=== PATIENT | male | born 1945 | race Caucasian/White ===

== ENCOUNTER → 2023-09-09 13:41 | Outpatient (REF) | payer OTHER, SELFPAY | LOC: RAD 13:41 | PROVIDERS: ATTENDING PHYSICIAN Nurse Practitioner Adult Health | DX: R07.81 Pleurodynia (principal) | CPT/HCPCS: 71046 ==

== ENCOUNTER → 2023-09-30 08:29 | Outpatient (REF) | payer OTHER, SELFPAY ==
[2023-09-30 11:35] LABS: TSH Reflex To Free T4 7.13 uIU/ml (0.47-4.68)
[2023-09-30 11:41] LABS: HDL Cholesterol 65 mg/dl; LDL Cholesterol, Calculated 81 mg/dl; Total Cholesterol 161 mg/dl (50-199); Triglyceride 77 mg/dl (10-149); Very Low Density Lipoprotein 15 mg/dl (0-30)
[2023-09-30 12:05] LABS: Free T4 0.76 ng/dl (0.78-2.19)
== END ==
LOC: RAD 08:29
PROVIDERS: ATTENDING PHYSICIAN Internal Medicine
DX: E78.2 Mixed hyperlipidemia (principal); I25.84 Coronary atherosclerosis due to calcified coronary lesion; M25.522 Pain in left elbow
CPT/HCPCS: 36415; 73080; 80061; 84439; 84443

== ENCOUNTER 2024-02-28 02:22 | Emergency (ER) | payer OTHER, SELFPAY ==
[2024-02-28 02:22] VITALS: BMI 19.9
[2024-02-28 02:30] VITALS: BP 154/81
[2024-02-28 04:23] VITALS: BP 157/69
[2024-02-28 05:01] VITALS: BP 164/67
[2024-02-28 05:37] LABS: % Basophils 1.6 % (0-2); % Eosinophils 10.6 % (0-6); % Immature Granulocytes 0.3 % (0-0.5); % Lymphocytes 12.8 % (20.5-51.1); % Monocytes 7.9 % (1.7-9.3); % Neutrophils 66.8 % (42.2-75.2); Absolute Basophils 0.1 10^3/uL (0-0.2); Absolute Eosinophils 0.8 10^3/uL (0-0.7); Absolute Monocytes 0.6 10^3/uL (0.1-0.6); Absolute Neutrophils 5.2 10^3/uL (1.4-6.5); Hemoglobin 14.3 g/dL (13.0-18.0); Mean Corpuscular Volume 88.2 fL (80.0-94.0); Mean Platelet Volume 10.1 fL (7.4-10.4); Nucleated Red Blood Cells % 0 % (-); Platelet Count 590 10^3/uL (130-400); Red Blood Cell Count 4.76 10^6/uL (4.70-6.10); Red Cell Dist. Width 13.6 % (11.5-14.5); White Blood Cell Count 7.7 10^3/uL (4.8-10.8)
[2024-02-28 06:00] VITALS: BP 151/70
[2024-02-28 06:10] LABS: Troponin I < 0.012 ng/ml
--- NOTE | 2024-02-28 06:14 | ED.GENMED ---
History of Present Illness
General
Chief Complaint: Heart Rate Problem
Source: patient
Exam Limitations: none
Time Seen by Provider: 02/28/24 05:39
Nursing documentation reviewed up to this point in time: agreed with
History of Present Illness
History of Present Illness:
This is a 78-year-old gentleman with history of PAF, chronically maintained on Pradaxa as well as Tikosyn and diltiazem.
He complains of palpitations, intermittent since yesterday evening. He was concern for possible A-fib. He has had no chest pain, no shortness of breath, no dizziness nor lightheadedness.
No recent change in medications other than temporarily discontinuing atorvastatin 2 weeks ago due to some chronic posterior thigh achy pain. Posterior thigh pain has resolved with discontinuing atorvastatin.
Past History
Past History
ED Past Medical History: Arrthythmia (Atrial fibrillation), Asthma, Cancer (Lung cancer 2005), COPD, GERD (Hiatal hernia), Other (Irritable bowel disease, prostatic hypertrophy, glaucoma) and Other (Bronchiectasis)
ED Past Surgical History: Other (Left lung lobectomy August 2005, hemorrhoidectomy, inguinal hernia repair)
Social History
Tobacco: Former smoker (Quit with lung cancer diagnosis 2005)
Alcohol: None
Drug: None
Personal:
Living: alone
Employment: Employed (Musician)
Family History
Family History: Hypertension
Phy Exam
Physical Exam
Physical Exam:
GENERAL: 78-year-old gentleman appears his stated age, bright and alert, pleasant, appears in no acute distress. Easily communicative.
EYE: anicteric
NECK: Supple, nontender, no meningismus, no significant adenopathy.
ENT: oral mucosa is moist. No rhinorrhea.
CARDIAC: Regular rate and rhythm at a rate of 60. no murmur.
LUNGS: Clear breath sounds bilaterally, no acute respiratory distress, no wheezes/rales/rhonchi
ABDOMEN: Soft, nondistended, without focal tenderness
NEUROLOGICAL: Alert and oriented x3, no focal neuro deficits. Gait is lam and steady.
SKIN: Warm and dry, normal color, skin intact. No rash.
MUSCULOSKELETAL: No C/C/E. peripheral pulses are full and equal b/l. No palpable tenderness.
PSYCH: Normal and appropriate interaction.
Course
Orders/Labs/Results
Orders:
Orders
02/28/24 02:36
Electrocardiogram (*1) Urgent
Reason for Study: Other
Other Reason for Exam: Respiratory Distress
Cardiac Monitoring- Treatment ONCE
EKG- Treatment ONCE
IV Insert/Care/Rem.- Treatment PRN
O2 Therapy [RESP] Urgent
Titrate/Wean O2 to maintain O2 sat greater than (%): 93
Special Instructions: TO MAINTAIN CONTINUOUS O2 SATS >/= 93%
Pulse Ox/cont/shift [RESP] Urgent
Quantity: 1
Special Instructions: continuous pulse ox
02/28/24 04:08
ECG [Electrocardiogram (*1)] Urgent
Reason for Study: Palpitations
Cardiology Consult: Unknown
02/28/24 04:09
EKG- Treatment ONCE
02/28/24 05:26
Complete Blood Count/With Diff Urgent
Comprehensive Metabolic Panel Urgent
TSH Reflex To Free T4 Urgent
Comment: ADD ON
Troponin I Urgent
02/28/24 06:30
Add On- LAB Urgent
Tests Added?: TSH with reflex to free T-4
Abnormal Lab Results
02/28/24
05:26
Plt Count 590 H 10^3/uL
(130-400)
Absolute Lymphs (auto) 1.0 L 10^3/uL
(1.2-3.4)
Absolute Eos (auto) 0.8 H 10^3/uL
(0-0.7)
Lymphocytes % 12.8 L %
(20.5-51.1)
Eosinophils % 10.6 H %
(0-6)
Potassium 5.4 H mmol/L
(3.5-5.1)
02/28/24 05:26
02/28/24 05:26
Vital Signs
Initial and Last Documented VS:
Initial Vital Signs
Temp Pulse Resp BP Pulse Ox
98.1 F 67 20 154/81 98
02/28/24 02:30 02/28/24 02:30 02/28/24 02:30 02/28/24 02:30 02/28/24 02:30
Last Documented Vital Signs
Temp Pulse Resp BP Pulse Ox
98.1 F 60 20 151/70 100
02/28/24 02:30 02/28/24 06:15 02/28/24 05:45 02/28/24 06:00 02/28/24 04:23
MDM/Problems Addressed
Differential Diagnosis Includes:
Concern for PAF, PACs, PVCs. Concern for electrolyte abnormality, dehydration.
Initial EKG shows normal sinus rhythm, no ectopy.
media monitor currently shows normal sinus rhythm and I have not visualized any ectopy but will continue to observe.
Labs are pending.
MDM/Problems Addressed:
Potential for arrhythmia� history of PAF
Chronic conditions affecting care: Arrhythmia
*Pulse Oximetry
Patient hypoxic: no
*EKG
Interpreted by ED Provider?: Yes
Interpretation: normal
Comparison EKG: no changes (Unchanged from previous May 2023)
Rate: normal
Rhythm: sinus
Cartwright: normal axis
Interval: normal interval
QRS Pattern: normal QRS, poor R-wave progression and left vent hypertrophy
Ischemia: no ischemia
*Director Of Laboratory Operations Interpretation
Rate: normal
Interpretation: normal
Rhythm: sinus
*Critical Care Note
Total Time (30-74mins, 75-104mins- exclusive of procedures): Not Applicable
Update Note
Update Note:
02/28/2024 0628 AM
Monitor continues to show normal sinus rhythm, sinus bradycardia without ectopy nor A-fib.
Labs show mildly elevated platelet count, similar elevations previously.
Minimally elevated potassium with normal BUN and creatinine. Sporadic elevated potassium level noted previously.
Of note patient noted to have mildly elevated TSH of 7.13 and slightly low free T4 of 0.76 September of this year. He was prescribed low-dose levothyroxine which she admits to not starting as yet.
Progression of hypothyroidism could certainly be cause for his intermittent palpitations however we have not seen arrhythmia during ED monitoring.
Will add thyroid function to blood in the lab.
Patient has a follow-up appointment with Dr. Green scheduled for tomorrow, February 28.
Recommend he discuss his palpitations with Dr. Green as well as discuss hypothyroidism as labs should be resulted by tomorrow. If he remains hypothyroid would definitely recommend initiation of low-dose levothyroxine.
We also discussed resuming atorvastatin perhaps every other day as well as adding co-Q10 which sometimes can help with muscle aches.
ED Attending Note
-
Portions of this chart may have been created with voice recognition software.� Occasional wrong word or��sound alike� substitutions may have occurred due to the inherent limitations of voice recognition software.
Discharge Plan
Departure
Patient Disposition: Home (Routine Discharge)
Date of Disposition: 02/28/24
Time of Disposition: 06:30
Patient with high blood pressure during this ER visit?: No
Condition: Good
Discharge Problem:
Heart palpitations
Instructions: Palpitations (DC)
Prescriptions:
No Action
montelukast 10 MG tablet
10 mg PO DAILY
levalbuterol tartrate 1 PUFF HFA aerosol inhaler
2 puff inhalation PRN PRN (Reason: trouble breathing)
tamsulosin 0.4 MG capsule
0.4 mg PO DAILY
dorzolamide 1 DROP drops
1 drp ophthalmic (eye) TID
Patient Comments:
both eyes
budesonide-formoterol [Symbicort] 1 PUFF HFA aerosol inhaler
1 puff inhalation BID
diltiazem HCl 120 MG capsule,extended release 24hr
120 mg PO DAILY
ascorbic acid (vitamin C) [Vitamin C] 1,000 mg Tablet
500 mg PO DAILY
nitroglycerin 0.4 mg Tablet, Sublingual
0.4 mg SUBLINGUAL Q5-15M PRN (Reason: chest pain)
dutasteride 0.5 mg Capsule
0.5 mg PO DAILY
Linzess 290 mcg Capsule
290 mcg PO DAILY PRN (Reason: constipation)
atorvastatin 40 mg Tablet
40 mg PO QPM Qty: 90 5RF
dabigatran etexilate [Pradaxa] 150 mg Capsule
150 mg PO BID Qty: 180 5RF
dofetilide 125 mcg Capsule
125 mcg PO Q12 Qty: 180 5RF
Vyzulta 0.024 % Drops
1 drp OPHTHALMIC (EYE) HS
Rx Instructions:
left eye
Referrals:
Josr Albarran MD [Family Provider] -
Torsten Green MD [Active] - Keep scheduled appt
Interventions
Interventions:
*Risk Screen - Suicide Last Done: 02/28/24 02:30
*General Assessment Last Done: 02/28/24 02:30
*Neglect/Abuse Screening Last Done: 02/28/24 02:30
ED- Fall Risk Assessment Last Done: 02/28/24 02:30
*ED COVID-19 Vaccine History Last Done: 02/28/24 02:30
*Nursing Disposition Last Done: 02/28/24 06:43
ED- Cardiac Assessment Last Done: 02/28/24 04:18
ED- Pulmonary Assessment Last Done: 02/28/24 04:18
Discharge Date and Time
Discharge Date/Time: 02/28/24 06:43
Print Language: BANGLADESHI
[2024-02-28 06:20] LABS: ALT (SGPT) 36 U/L (0-50); AST (SGOT) 35 U/L (17-59); Albumin 4.2 g/dl (3.5-5.0); Alkaline Phosphatase 80 U/L (38-126); Blood Urea Nitrogen 20 mg/dl (9-20); Calcium 9.6 mg/dl (8.4-10.2); Carbon Dioxide 25 mmol/L (22-30); Chloride 105 mmol/L (98-107); Estimated Creatinine Clearance 58 ml/min; Glucose 87 mg/dl (70-99); Potassium 5.4 mmol/L (3.5-5.1); Sodium 141 mmol/L (135-145); Total Bilirubin 0.9 mg/dl (0.2-1.3); Total Protein 6.7 g/dl (6.3-8.2); eGFR > 60.00
[2024-02-28 07:20] LABS: TSH Reflex To Free T4 9.02 uIU/ml (0.47-4.68)
[2024-02-28 07:50] LABS: Free T4 0.78 ng/dl (0.78-2.19)
== END 2024-02-28 06:43 | disposition home or self-care (01) ==
LOC: EMR 02:22
PROVIDERS: EMERGENCY PHYSICIAN Emergency Medicine; FAMILY PHYSICIAN Internal Medicine
DX: R00.2 Palpitations (principal); I48.0 Paroxysmal atrial fibrillation; E03.9 Hypothyroidism, unspecified; Z87.891 Personal history of nicotine dependence; Z79.01 Long term (current) use of anticoagulants
CPT/HCPCS: 99284; 80053; 84439; 84443; 84484; 85025; 93005

== ENCOUNTER 2024-03-03 04:32 | Emergency (ER) | payer OTHER, SELFPAY ==
[2024-03-03 04:34] VITALS: BMI 19.1
[2024-03-03 04:35] VITALS: BP 173/73
--- NOTE | 2024-03-03 04:50 | ED.GENMED ---
History of Present Illness
<TORSTEN Dempsey - Last Filed: 03/03/24 06:36>
General
Chief Complaint: Rectal Bleeding
Source: patient
Time Seen by Provider: 03/03/24 04:44
History of Present Illness
History of Present Illness:
This is a pleasant 78-year-old male with a past medical history of A-fib, hypertension, hyperlipidemia, hemorrhoids, Rectal stenosis, hypothyroid, glaucoma, lung cancer, presents to the emergency department for painless rectal bleeding. Patient
states the first episode of bleeding occurred yesterday morning around 10 AM when he first woke up. He noted after a straining bowel movement that the tissue was 'soaked 'but stated that he is on no blood in the toilet or in the stool. Patient
stated the second episode of rectal bleeding happened this morning around 3 AM where the tissue paper was 'drenched ' Which prompted him to call EMS. He states that he wants to get his left glaucoma surgery performed before the end of the year and
that he believes fixing his rectal stenosis first will remove any healthcare barriers to his glaucoma surgery. Yesterday he talked with his colorectal surgeon, Dr. Edward Winkler. Patient states he intends to make an appointment for anal
stenosis surgery/hemorrhoid surgery. Patient incidentally admits to abdominal tenderness but states that that is his baseline. He denies chest pain, shortness of breath, headache, dizziness, nausea, vomiting.
Patient had a hemorrhoidectomy when he was 17 years old and has since had chronic constipation and chronic anal stenosis.
Past History
<TORSTEN Dempsey - Last Filed: 03/03/24 06:36>
Past History
ED Past Medical History: Arrthythmia (Atrial fibrillation), Asthma, Cancer (Lung cancer 2005), COPD, GERD (Hiatal hernia), Other (Irritable bowel disease, prostatic hypertrophy, glaucoma) and Other (Bronchiectasis)
ED Past Surgical History: Other (Left lung lobectomy August 2005, hemorrhoidectomy, inguinal hernia repair)
Social History
Tobacco: Former smoker (Quit with lung cancer diagnosis 2005)
Alcohol: None
Drug: None
Personal:
Living: alone
Employment: Employed (Musician)
Family History
Family History: Hypertension
Review of Systems
<TORSTEN Dempsey - Last Filed: 03/03/24 06:36>
Review of Systems
Allergies reviewed?: Yes
Phy Exam
<TORSTEN Dempsey - Last Filed: 03/03/24 06:36>
General Physical Exam
General Presentation: well appearing
General age: appears stated age
General Skin: warm
General Habitus: normal
General Mental: alert
General Hydration: appears well hydrated
Eye Exam
Eye Exam: PERRL
Cardiovascular Exam
Cardiovascular Exam: regular rate/rhythm, no edema, no gallop, no murmur and normal peripheral pulses
Pulmonary Exam
Pulmonary Exam: lungs clear, no respiratory distress, no rales, no crackles, no rhonchi, no wheezing and no cough
Gastrointestinal Exam
Gastrointestinal Exam: normal bowel sounds, non tender, soft and non distended
Rectal Exam: tender, tight spinchter tone and other (Anterior midline 1 cm anal fissure, )
Stool: few red streaks
Guaiac Status: grossly bloody - positive
Neurological Exam
Neurological Exam: alert and oriented x3
Musculoskeletal Exam
Musculoskeletal Exam: full ROM
Skin Exam
Skin Exam: normal color and warm/dry
Course
<TORSTEN Dempsey - Last Filed: 03/03/24 06:36>
Orders/Labs/Results
Orders:
Orders
03/03/24 04:54
Complete Blood Count/With Diff Urgent
Comprehensive Metabolic Panel Urgent
Abnormal Lab Results
03/03/24
04:54
Plt Count 616 H 10^3/uL
(130-400)
Absolute Neuts (auto) 6.8 H 10^3/uL
(1.4-6.5)
Absolute Lymphs (auto) 1.1 L 10^3/uL
(1.2-3.4)
Absolute Monos (auto) 0.7 H 10^3/uL
(0.1-0.6)
Absolute Eos (auto) 0.8 H 10^3/uL
(0-0.7)
Lymphocytes % 11.7 L %
(20.5-51.1)
Eosinophils % 8.6 H %
(0-6)
Potassium 5.3 H mmol/L
(3.5-5.1)
Carbon Dioxide 21 L mmol/L
(22-30)
BUN 24 H mg/dl
(9-20)
03/03/24 04:54
03/03/24 04:54
Vital Signs
Initial and Last Documented VS:
Initial Vital Signs
BP
173/73
03/03/24 04:35
Last Documented Vital Signs
Pulse Resp BP Pulse Ox
69 12 145/59 100
03/03/24 06:15 03/03/24 06:15 03/03/24 06:15 03/03/24 05:45
Harpreetlt;Shruti Payne, DO - Last Filed: 03/03/24 06:19>
Orders/Labs/Results
Orders:
Orders
03/03/24 04:54
Complete Blood Count/With Diff Urgent
Comprehensive Metabolic Panel Urgent
Abnormal Lab Results
03/03/24
04:54
Plt Count 616 H 10^3/uL
(130-400)
Absolute Neuts (auto) 6.8 H 10^3/uL
(1.4-6.5)
Absolute Lymphs (auto) 1.1 L 10^3/uL
(1.2-3.4)
Absolute Monos (auto) 0.7 H 10^3/uL
(0.1-0.6)
Absolute Eos (auto) 0.8 H 10^3/uL
(0-0.7)
Lymphocytes % 11.7 L %
(20.5-51.1)
Eosinophils % 8.6 H %
(0-6)
Potassium 5.3 H mmol/L
(3.5-5.1)
Carbon Dioxide 21 L mmol/L
(22-30)
BUN 24 H mg/dl
(9-20)
03/03/24 04:54
03/03/24 04:54
Vital Signs
Initial and Last Documented VS:
Initial Vital Signs
BP
173/73
03/03/24 04:35
Last Documented Vital Signs
Pulse Resp BP Pulse Ox
69 12 145/59 100
03/03/24 06:15 03/03/24 06:15 03/03/24 06:15 03/03/24 05:45
<TORSTEN Dempsey - Last Filed: 03/03/24 06:36>
MDM/Problems Addressed
Differential Diagnosis Includes:
Anal fissure, internal hemorrhoid, external hemorrhoid, gastrointestinal bleed,
<TORSTEN Dempsey - Last Filed: 03/03/24 06:36>
*Critical Care Note
Total Time (30-74mins, 75-104mins- exclusive of procedures): Not Applicable
ED Attending Note
<TORSTEN Dempsey - Last Filed: 03/03/24 06:36>
-
Portions of this chart may have been created with voice recognition software.� Occasional wrong word or��sound alike� substitutions may have occurred due to the inherent limitations of voice recognition software.
<Shruti Payne, DO - Last Filed: 03/03/24 06:19>
ED Attending Note
Patient seen and examined by attending physician: Yes
I performed the substantive portion of visit, reviewed & personally made and approve the management plan that is documented in note by myself or DEMOND.: Yes
ED Attending Note:
This is a 78-year-old gentleman with history of PAF, chronically maintained on Pradaxa as well as Tikosyn and diltiazem. He has remote history of lung cancer, COPD, GERD, irritable bowel disease, glaucoma as well as history of hemorrhoids
undergoing hemorrhoidectomy at age 17 and since then has been suffering with anal stenosis for which she follows with colorectal surgery, Dr. Leon.
At last office visit with Dr. Leon in December, plan was for exam under sedation with dilation, sphincterotomy and advancement flap. Thus far this has not been scheduled but he is strongly considering this procedure.
He admits that he chronically strains to pass a bowel movement and has been noncompliant with fiber supplements.
Yesterday morning after passing a firm bowel movement he was concerned with bright red blood on toilet tissue. He denies blood streaked around the stool, denies blood in the toilet bowl. He denies abdominal pain, no cramping, no dizziness nor
lightheadedness. He did touch base with Dr. Leon yesterday with plans for follow-up appointment in the near future.
Again early this morning he passed a bowel movement with no blood in the toilet nor blood streaking around the stool but was concerned with additional bright red blood only noted on toilet tissue. He denies anal pain nor rectal pain with defecation.
He was seen by myself 4 days ago with complaints of palpitations which has been an ongoing issue. ED visit unremarkable with EKG showing normal sinus rhythm, cardiac care nurse showing normal sinus rhythm.
Labs were all unremarkable save for minimally elevated TSH which has trended up slightly from August with low normal free T4. Patient was prescribed low-dose Synthroid in August but admits that he has not initiated this as yet.
GENERAL: 78-year-old gentleman appears his stated age, awake and alert, pleasant, easily communicative, mildly anxious.
EYE: anicteric
NECK: Supple, nontender, no meningismus, no significant adenopathy.
ENT: oral mucosa is moist. No rhinorrhea.
CARDIAC: Regular rate and rhythm. no murmur.
LUNGS: Clear breath sounds bilaterally, no acute respiratory distress, no wheezes/rales/rhonchi
ABDOMEN: Soft, nondistended, without focal tenderness, no r/g, no cvat. normoactive BS. Rectal exam by PA student under my direct supervision. There is a minute superficial anal fissure anterior aspect. No active bleeding. Scant mucoid blood
within rectal vault that is heme positive.
NEUROLOGICAL: Alert and oriented x3, no focal neuro deficits. Gait is lam and steady.
SKIN: Warm and dry, normal color, skin intact. No rash.
MUSCULOSKELETAL: No C/C/E. peripheral pulses are full and equal b/l. No palpable tenderness.
PSYCH: Mildly anxious. Easily communicative.
It is reassuring that patient only notices blood with wiping. There is been no episodes of bloody bowel movements. I suspect focal bleeding from either small anterior rectal fissure versus internal hemorrhoids.
He remains hemodynamically stable. Monitor continues to show normal sinus rhythm without ectopy nor episodes of A-fib.
Abdomen is soft and nontender.
Will check labs, reassess stability from 4 days ago.
Will continue to observe and if no episodes of hematochezia we will plan to initiate Anusol suppositories for potential internal hemorrhoid and discharged home with recommendations for follow-up with Dr. Leon.
Patient has been encouraged to initiate low-dose Synthroid for mild hypothyroidism.
He has also been encouraged to resume daily fiber supplement and to continue this on a chronic/daily basis.
03/03/2024 0618 AM
Patient continues to appear comfortable, denies abdominal pain and has had no rectal bleeding since arrival to the ED.
Labs show normal H&H. There is note of continued uptrend in platelet count and he has history of thrombocytosis, follows with Dr. Padilla. Due to uptrend in platelets more recently recommend he touch base with Dr. Padilla.
Rectal bleeding only noted on toilet tissue is likely focal, rectal/anal issue and I suspect related to small superficial anal fissure versus internal hemorrhoids.
Will initiate a course of Anusol suppositories with recommendations for prompt follow-up with Dr. Leon.
Recommend he resume fiber supplement/Benefiber and continue this on a daily basis.
Stay well-hydrated on a daily basis.
Return precautions discussed.
Discharge Plan
Departure
Patient Disposition: Home (Routine Discharge)
Date of Disposition: 03/03/24
Time of Disposition: 06:13
Patient with high blood pressure during this ER visit?: No
Condition: Good
Discharge Problem:
Rectal bleeding, Acute anterior anal fissure, chronic anal stenosis, chronic thrombocytosis
Instructions: Hemorrhoids (DC), Anal Fissure (DC)
Prescriptions:
New
hydrocortisone acetate [Anusol-HC] 25 mg suppository
25 mg SD BID Qty: 24 0RF
No Action
montelukast 10 MG tablet
10 mg PO DAILY
levalbuterol tartrate 1 PUFF HFA aerosol inhaler
2 puff inhalation PRN PRN (Reason: trouble breathing)
tamsulosin 0.4 MG capsule
0.4 mg PO DAILY
dorzolamide 1 DROP drops
1 drp ophthalmic (eye) TID
Patient Comments:
both eyes
budesonide-formoterol [Symbicort] 1 PUFF HFA aerosol inhaler
1 puff inhalation BID
diltiazem HCl 120 MG capsule,extended release 24hr
120 mg PO DAILY
ascorbic acid (vitamin C) [Vitamin C] 1,000 mg Tablet
500 mg PO DAILY
nitroglycerin 0.4 mg Tablet, Sublingual
0.4 mg SUBLINGUAL Q5-15M PRN (Reason: chest pain)
dutasteride 0.5 mg Capsule
0.5 mg PO DAILY
Linzess 290 mcg Capsule
290 mcg PO DAILY PRN (Reason: constipation)
atorvastatin 40 mg Tablet
40 mg PO QPM Qty: 90 5RF
dabigatran etexilate [Pradaxa] 150 mg Capsule
150 mg PO BID Qty: 180 5RF
dofetilide 125 mcg Capsule
125 mcg PO Q12 Qty: 180 5RF
Vyzulta 0.024 % Drops
1 drp OPHTHALMIC (EYE) HS
Rx Instructions:
left eye
Referrals:
Mohsen Leon MD [Active] - Call in 1-3 days for appt
Josr Albarran MD [Family Provider] -
Jose Carlos Padilla MD [Active] - Call in 1-3 days for appt
Activity Restrictions/Additional Instructions:
Start that low-dose levothyroxine for hypothyroidism.
Stay well-hydrated on a daily basis.
I want you to resume fiber supplement such as Benefiber and continue this on a daily basis.
You have been prescribed Anusol suppositories to insert rectally twice daily over the next 12 days.
Touch base with Dr. Leon for follow-up.
Your platelet count (thrombocytosis) has been trending up a bit lately thus I want you to follow-up with Dr. Padilla for further evaluation.
Interventions
Interventions:
*Risk Screen - Suicide Last Done: 03/03/24 04:34
*General Assessment Last Done: 03/03/24 04:34
*Neglect/Abuse Screening Last Done: 03/03/24 04:34
ED- Fall Risk Assessment Last Done: 03/03/24 06:24
*ED COVID-19 Vaccine History Last Done: 03/03/24 04:34
*Nursing Disposition Last Done: 03/03/24 06:24
MF-Dsnvly-Ingiqdfojt Assessment Last Done: 03/03/24 04:34
ED- Cardiac Assessment Last Done: 03/03/24 04:34
ED- Pulmonary Assessment Last Done: 03/03/24 04:34
Discharge Date and Time
Discharge Date/Time: 03/03/24 06:25
Print Language: GREEK
[2024-03-03 05:21] LABS: % Basophils 1.1 % (0-2); % Eosinophils 8.6 % (0-6); % Immature Granulocytes 0.3 % (0-0.5); % Lymphocytes 11.7 % (20.5-51.1); % Monocytes 7.7 % (1.7-9.3); % Neutrophils 70.6 % (42.2-75.2); Absolute Basophils 0.1 10^3/uL (0-0.2); Absolute Eosinophils 0.8 10^3/uL (0-0.7); Absolute Lymphocytes 1.1 10^3/uL (1.2-3.4); Absolute Monocytes 0.7 10^3/uL (0.1-0.6); Absolute Neutrophils 6.8 10^3/uL (1.4-6.5); Hematocrit 43.2 % (39.0-52.0); Hemoglobin 14.7 g/dL (13.0-18.0); Mean Corpuscular Hgb 30.1 pg (27.0-31.0); Mean Corpuscular Volume 88.5 fL (80.0-94.0); Mean Platelet Volume 10.4 fL (7.4-10.4); Nucleated Red Blood Cells % 0 % (-); Platelet Count 616 10^3/uL (130-400); Red Blood Cell Count 4.88 10^6/uL (4.70-6.10); Red Cell Dist. Width 13.7 % (11.5-14.5); White Blood Cell Count 9.6 10^3/uL (4.8-10.8)
[2024-03-03 05:29] VITALS: BP 138/70
[2024-03-03 05:31] LABS: ALT (SGPT) 36 U/L (0-50); AST (SGOT) 37 U/L (17-59); Albumin 4.7 g/dl (3.5-5.0); Alkaline Phosphatase 92 U/L (38-126); Blood Urea Nitrogen 24 mg/dl (9-20); Calcium 9.9 mg/dl (8.4-10.2); Carbon Dioxide 21 mmol/L (22-30); Chloride 102 mmol/L (98-107); Estimated Creatinine Clearance 45 ml/min; Glucose 90 mg/dl (70-99); Potassium 5.3 mmol/L (3.5-5.1); Sodium 139 mmol/L (135-145); Total Bilirubin 0.7 mg/dl (0.2-1.3); Total Protein 7.4 g/dl (6.3-8.2); eGFR > 60.00
[2024-03-03 06:15] VITALS: BP 145/59
== END 2024-03-03 06:25 | disposition home or self-care (01) ==
LOC: EMR 04:32
PROVIDERS: EMERGENCY PHYSICIAN Emergency Medicine; FAMILY PHYSICIAN Internal Medicine
DX: K62.5 Hemorrhage of anus and rectum (principal); K60.2 Anal fissure, unspecified; K62.4 Stenosis of anus and rectum; D75.839 Thrombocytosis, unspecified; I48.91 Unspecified atrial fibrillation; I10 Essential (primary) hypertension; E78.00 Pure hypercholesterolemia, unspecified; E03.9 Hypothyroidism, unspecified; H40.9 Unspecified glaucoma; K21.9 Gastro-esophageal reflux disease without esophagitis; K58.1 Irritable bowel syndrome with constipation; N40.0 Benign prostatic hyperplasia without lower urinary tract symptoms; Z82.49 Family history of ischemic heart disease and other diseases of the circulatory system; Z85.118 Personal history of other malignant neoplasm of bronchus and lung; Z87.19 Personal history of other diseases of the digestive system; Z87.891 Personal history of nicotine dependence
CPT/HCPCS: 99283; 80053; 85025

== ENCOUNTER 2024-03-05 16:44 | Emergency (ER) | payer OTHER, SELFPAY ==
[2024-03-05 16:49] VITALS: BP 147/69
--- NOTE | 2024-03-05 17:27 | ED.GENMED ---
History of Present Illness
General
Chief Complaint: Chest Pain
Source: patient
Time Seen by Provider: 03/05/24 17:25
History of Present Illness
History of Present Illness:
This patient is a 78-year-old male presents to the emergency department with a history of recent rectal bleeding. He noticed it on March 02, described as 'red' also described as 'dark', noted on the toilet paper. Patient is on Pradaxa and he
discontinued his Pradaxa the next day, March 03. He has not taken a dose since then except last night when he got concerned that being off his Pradaxa would be problematic. He denies any further rectal bleeding today. However, this morning, he
noted that his left arm felt a little funny described as 'like it swollen' lasting a few seconds at a time and then going away completely before returning every few minutes or so. There are no provoking or relieving factors to this discomfort. He
denies radiation, diaphoresis, back pain, neck pain, headache, new dizziness. Patient has complaints of chronic 'pressure' in his chest that he attributes to COPD as well as a thoracotomy in the past. He noted that chest pressure earlier today but
no longer. He also noted dyspnea lasting 5 minutes earlier today, now fully resolved. He denies leg swelling, fever, chills, cough, sore throat, rhinorrhea, or other complaints. He denies bleeding elsewhere. He states 'I am here today because I
want to see if I should restart my Pradaxa'
Past History
Past History
ED Past Medical History: Arrthythmia (Atrial fibrillation), Asthma, Cancer (Lung cancer 2005), COPD, GERD (Hiatal hernia), Other (Irritable bowel disease, prostatic hypertrophy, glaucoma) and Other (Bronchiectasis)
ED Past Surgical History: Other (Left lung lobectomy August 2005, hemorrhoidectomy, inguinal hernia repair)
Social History
Tobacco: Former smoker (Quit with lung cancer diagnosis 2005)
Alcohol: None
Drug: None
Personal:
Living: alone
Employment: Employed (Musician)
Family History
Family History: Hypertension
Phy Exam
Physical Exam
Physical Exam:
GENERAL: Alert , in no apparent distress
EYE: pupils equal and reactive
NECK: Supple, no significant adenopathy.
ENT: o/p clr, mmm.
CARDIAC: Regular rate and rhythm .
LUNGS: Clear breath sounds bilaterally, no acute respiratory distress, no wheezes/rales/rhonchi
ABDOMEN: Soft, without focal tenderness, no r/g, no cvat
NEUROLOGICAL: Alert and oriented, no focal neuro deficits
SKIN: Warm and dry, skin intact.
MUSCULOSKELETAL: No edema, well perfused.
PSYCH: Normal and appropriate interaction.
Scores
Heart Score for Chest Pain Patients
STEMI patient?: Not applicable
Course
Orders/Labs/Results
Orders:
Orders
03/05/24 16:45
ECG [Electrocardiogram (*1)] Urgent
Reason for Study: Chest Pain
Other Reason for Exam: L arm pain
EKG- Treatment ONCE
03/05/24 17:26
Cardiac Monitoring- Treatment ONCE
03/05/24 17:28
Complete Blood Count/No Diff Urgent
Comprehensive Metabolic Panel Urgent
Troponin I Urgent
03/05/24 20:48
Troponin I Urgent
Abnormal Lab Results
03/05/24
17:28
RBC 4.03 L 10^6/uL
(4.70-6.10)
Hgb 12.2 L g/dL
(13.0-18.0)
Hct 35.1 L %
(39.0-52.0)
Plt Count 534 H 10^3/uL
(130-400)
Glucose 140 H mg/dl
(70-99)
Total Protein 6.1 L g/dl
(6.3-8.2)
03/05/24 17:28
03/05/24 17:28
Vital Signs
Initial and Last Documented VS:
Initial Vital Signs
Temp Pulse Resp BP Pulse Ox
98.0 F 66 18 147/69 99
03/05/24 16:49 03/05/24 16:49 03/05/24 16:49 03/05/24 16:49 03/05/24 16:49
Last Documented Vital Signs
Temp Pulse Resp BP Pulse Ox
98.0 F 64 18 165/68 98
03/05/24 16:49 03/05/24 21:45 03/05/24 21:45 03/05/24 20:00 03/05/24 21:45
*Critical Care Note
Total Time (30-74mins, 75-104mins- exclusive of procedures): Not Applicable
Update Note
Update Note:
Patient presents to the Emergency Department with ___chest and arm pain
Number and Complexity of Problems Addressed at the Encounter
� Chronic conditions affecting care:
� Acute Exacerbation and/or Progression of Chronic Illness:
� Differential Diagnosis includes: But not limited to ACS, anemia, anxiety, etc. etc.
Amount and/or Complexity of Data to be Reviewed and Analyzed
� I performed an independent evaluation of and my interpretation is:
EKG: Read by me, compared to prior, unchanged, normal sinus rhythm with LVH, no acute ischemia
CT:
Xrays:
Laboratory Studies:mild anemia
Other:
� Review of other/old records reveals:
� Clinical information was obtained by an independent historian:
� Prescriptions/Medications Considered but not given:
� Further testing considered but not performed:
Risk of Complications and/or Morbidity or Mortality of Patient Management
� Social determinants of health affecting care:
� Discussion with other providers (PCP, Hospitalists, Consultants, etc):
� Escalation of care including admission/observation vs risk of discharge considered:case d/w cards (Dr Guerin) who spoke with pt before arrival. PLeased that ecg/trop wnl, agrees that acs unlikely. Also agrees that pt should
not resume pradaxa at this time until gia sheikh, she has arranged for prmpt f/u this week regarding and reinforced this with pt. Pt asx here, in nad.
ED Attending Note
-
Portions of this chart may have been created with voice recognition software.� Occasional wrong word or��sound alike� substitutions may have occurred due to the inherent limitations of voice recognition software.
Discharge Plan
Departure
Patient Disposition: Home (Routine Discharge)
Date of Disposition: 03/05/24
Time of Disposition: 21:54
Patient with high blood pressure during this ER visit?: Yes
Condition: Good
Discharge Problem:
Chest pain
Instructions: Chest Pain DCA Follow Up, BLOOD PRESSURE
Prescriptions:
No Action
tamsulosin 0.4 MG capsule
0.4 mg PO DAILY
dorzolamide 1 DROP drops
1 drp BOTH EYES TID
dutasteride 0.5 mg Capsule
0.5 mg PO DAILY
dabigatran etexilate [Pradaxa] 150 mg Capsule
150 mg PO BID Qty: 180 5RF
Patient Comments:
03/05/24- on hold due to rectal bleeding
dofetilide 125 mcg Capsule
125 mcg PO Q12 Qty: 180 5RF
Vyzulta 0.024 % Drops
1 drp LEFT EYE HS
diltiazem HCl 180 mg Capsule,Extended Release 24 Hr
180 mg PO DAILY@0300
Referrals:
Josr Albarran MD [Family Provider] - Follow up in 2-3 days
Activity Restrictions/Additional Instructions:
PLEASE CONTACT YOUR HEART DOCTOR THIS WEEK FOR FURTHER FOLLOW UP. IF YOU DEVELOP INCREASING/NEW CHEST PAIN, ANY TROUBLE BREATHING, FEVER, VOMITING, DIZZINESS OR OTHER WORRISOME SIGNS, GO TO THE ER IMMEDIATELY!
Interventions
Interventions:
*Risk Screen - Suicide Last Done: 03/05/24 16:56
*General Assessment Last Done: 03/05/24 16:56
*Neglect/Abuse Screening Last Done: 03/05/24 16:56
ED- Fall Risk Assessment Last Done: 03/05/24 17:32
ED- Cardiac Assessment Last Done: 03/05/24 17:32
Discharge Date and Time
Print Language: SPANISH
[2024-03-05 17:34] LABS: Hematocrit 35.1 % (39.0-52.0); Hemoglobin 12.2 g/dL (13.0-18.0); Mean Corp Hgb Conc. 34.8 g/dL (33.0-37.0); Mean Corpuscular Hgb 30.3 pg (27.0-31.0); Mean Corpuscular Volume 87.1 fL (80.0-94.0); Mean Platelet Volume 9.7 fL (7.4-10.4); Platelet Count 534 10^3/uL (130-400); Red Blood Cell Count 4.03 10^6/uL (4.70-6.10); Red Cell Dist. Width 13.7 % (11.5-14.5); White Blood Cell Count 7.6 10^3/uL (4.8-10.8)
[2024-03-05 17:48] LABS: ALT (SGPT) 24 U/L (0-50); AST (SGOT) 21 U/L (17-59); Albumin 3.8 g/dl (3.5-5.0); Alkaline Phosphatase 74 U/L (38-126); Blood Urea Nitrogen 15 mg/dl (9-20); Calcium 9.5 mg/dl (8.4-10.2); Carbon Dioxide 22 mmol/L (22-30); Chloride 102 mmol/L (98-107); Estimated Creatinine Clearance 52 ml/min; Glucose 140 mg/dl (70-99); Potassium 4.5 mmol/L (3.5-5.1); Sodium 136 mmol/L (135-145); Total Bilirubin 0.5 mg/dl (0.2-1.3); Total Protein 6.1 g/dl (6.3-8.2); eGFR > 60.00
[2024-03-05 18:00] VITALS: BP 130/71
[2024-03-05 18:01] LABS: Troponin I < 0.012 ng/ml
--- NOTE | 2024-03-05 18:21 | PHANOTE ---
Addendum entered by Jailene Ortiz 03/05/24 18:22:
forgot to mention that the patient stated he has not started Synthroid 25mcg and doesn't plain on starting on any time soon
Original Note:
med rec note speaking with patient who stated that h stopped all his vitamins, with Pradaxa on hold due to rectal bleeding, and stopped his Lipitor
[2024-03-05 19:00] VITALS: BP 132/78
[2024-03-05 20:00] VITALS: BP 165/68
[2024-03-05 21:22] LABS: Troponin I < 0.012 ng/ml
[2024-03-05 21:58] VITALS: BP 147/69
== END 2024-03-05 22:04 | disposition home or self-care (01) ==
LOC: EMR 16:44
PROVIDERS: EMERGENCY PHYSICIAN Emergency Medicine; FAMILY PHYSICIAN Internal Medicine
DX: R07.89 Other chest pain (principal); R03.0 Elevated blood-pressure reading, without diagnosis of hypertension; Z87.891 Personal history of nicotine dependence
CPT/HCPCS: 99284; 80053; 84484; 85027; 93005

== ENCOUNTER 2024-03-05 22:50 | Emergency (ER) | payer OTHER, SELFPAY ==
[2024-03-05 23:02] VITALS: BP 147/74
--- NOTE | 2024-03-05 23:22 | EDRN ---
Pt came out of room and asked if he can change his mind. Pt informed he can change his mind about staying at any time. Pt says 'I don't want to do this again.' Asked pt to wait in his room - Dr Cummings in room speaking with pt at this time.
--- NOTE | 2024-03-05 23:24 | ED.GENMED ---
History of Present Illness
General
Chief Complaint: Dizziness
Source: patient
Time Seen by Provider: 03/05/24 23:24
History of Present Illness
History of Present Illness:
78-year-old male who was just discharged from the emergency department after presenting with arm discomfort and chest pain, workup unremarkable, felt well. However, shortly after he presented again complaining of mild lightheadedness and nausea.
He denied other complaints such as chest pain, dyspnea, headache, vertigo, neck pain, abdominal pain, vomiting, chills, or other complaints. His blood pressure and offered food as he had not eaten in many many hours. After eating he felt better,
but still wanted to get 'checked out'. Upon arrival to the room, patient states that he would prefer to go home as he feels much better and does not have further concerns.
Past History
Past History
ED Past Medical History: Arrthythmia (Atrial fibrillation), Asthma, Cancer (Lung cancer 2005), COPD, GERD (Hiatal hernia), Other (Irritable bowel disease, prostatic hypertrophy, glaucoma) and Other (Bronchiectasis)
ED Past Surgical History: Other (Left lung lobectomy August 2005, hemorrhoidectomy, inguinal hernia repair)
Social History
Tobacco: Former smoker (Quit with lung cancer diagnosis 2005)
Alcohol: None
Drug: None
Personal:
Living: alone
Employment: Employed (Musician)
Family History
Family History: Hypertension
Phy Exam
Physical Exam
Physical Exam:
GENERAL: Alert , in no apparent distress
EYE: pupils equal and round
NECK: Supple
ENT: mmm.
ABDOMEN: Soft, without focal tenderness
NEUROLOGICAL: Alert and oriented, no focal neuro deficits, gait nl, speech clear
SKIN: Warm and dry, skin intact.
MUSCULOSKELETAL: No edema, well perfused.
PSYCH: Normal and appropriate interaction.
Course
Vital Signs
Initial and Last Documented VS:
Initial Vital Signs
Temp Pulse Resp BP Pulse Ox
97.8 F 70 20 147/74 100
03/05/24 23:02 03/05/24 23:02 03/05/24 23:02 03/05/24 23:02 03/05/24 23:02
Last Documented Vital Signs
Temp Pulse Resp BP Pulse Ox
97.8 F 70 20 147/74 100
03/05/24 23:02 03/05/24 23:02 03/05/24 23:02 03/05/24 23:02 03/05/24 23:02
*Critical Care Note
Total Time (30-74mins, 75-104mins- exclusive of procedures): Not Applicable
Update Note
Update Note:
Patient presents to the Emergency Department with
Number and Complexity of Problems Addressed at the Encounter
� Chronic conditions affecting care:
� Acute Exacerbation and/or Progression of Chronic Illness:
� Differential Diagnosis includes: but not limited to anxiety, medication effect, etc etc.
Amount and/or Complexity of Data to be Reviewed and Analyzed
� I performed an independent evaluation of and my interpretation is:
EKG:
CT:
Xrays:
Laboratory Studies:
Other:
� Review of other/old records reveals:
� Clinical information was obtained by an independent historian:
� Prescriptions/Medications Considered but not given:
� Further testing considered but not performed:
Risk of Complications and/or Morbidity or Mortality of Patient Management
� Social determinants of health affecting care:
� Discussion with other providers (PCP, Hospitalists, Consultants, etc):
� Escalation of care including admission/observation vs risk of discharge considered: Pt declines any further testing or evaluation here. Medically stable, mild bp elevation without s/sxs end organ injury. D/w pt import of f
/u, and reasons to rted.
ED Attending Note
-
Portions of this chart may have been created with voice recognition software.� Occasional wrong word or��sound alike� substitutions may have occurred due to the inherent limitations of voice recognition software.
Discharge Plan
Departure
Patient Disposition: Home (Routine Discharge)
Date of Disposition: 03/05/24
Time of Disposition: 23:26
Patient with high blood pressure during this ER visit?: Yes
Condition: Good
Discharge Problem:
Dizziness
Instructions: Dizziness, BLOOD PRESSURE
Prescriptions:
No Action
tamsulosin 0.4 MG capsule
0.4 mg PO DAILY
dorzolamide 1 DROP drops
1 drp BOTH EYES TID
dutasteride 0.5 mg Capsule
0.5 mg PO DAILY
dabigatran etexilate [Pradaxa] 150 mg Capsule
150 mg PO BID Qty: 180 5RF
Patient Comments:
03/05/24- on hold due to rectal bleeding
dofetilide 125 mcg Capsule
125 mcg PO Q12 Qty: 180 5RF
Vyzulta 0.024 % Drops
1 drp LEFT EYE HS
diltiazem HCl 180 mg Capsule,Extended Release 24 Hr
180 mg PO DAILY@0300
Activity Restrictions/Additional Instructions:
IF YOU DEVELOP CHEST PAIN, SHORTNESS OF BREATH, HEADACHE, DIZZINESS, VOMITING, NUMBNESS, OR OTHER WORRISOME SIGNS, PLEASE RETURN TO THE ER IMMEDIATELY.
Interventions
Interventions:
*Risk Screen - Suicide Last Done: 03/05/24 23:02
*Neglect/Abuse Screening Last Done: 03/05/24 23:02
ED- Neurological Assessment Last Done: 03/05/24 23:24
Discharge Date and Time
Print Language: ROMANSH
== END 2024-03-05 23:33 | disposition home or self-care (01) ==
LOC: EMR 22:50
PROVIDERS: EMERGENCY PHYSICIAN Emergency Medicine; FAMILY PHYSICIAN Internal Medicine
DX: R42 Dizziness and giddiness (principal); R03.0 Elevated blood-pressure reading, without diagnosis of hypertension; Z87.891 Personal history of nicotine dependence
CPT/HCPCS: 99282

== ENCOUNTER → 2024-03-14 07:03 | Outpatient (REF) | payer OTHER, SELFPAY | LOC: RAD 07:03 | PROVIDERS: ATTENDING PHYSICIAN Internal Medicine; FAMILY PHYSICIAN Internal Medicine | DX: G45.9 Transient cerebral ischemic attack, unspecified (principal); R29.810 Facial weakness | CPT/HCPCS: 70450 ==

== ENCOUNTER → 2024-03-30 14:59 | Outpatient (REF) | payer OTHER, SELFPAY | LOC: RCS 14:59 | PROVIDERS: ATTENDING PHYSICIAN Internal Medicine Cardiovascular Disease; FAMILY PHYSICIAN Internal Medicine; REFERRING PHYSICIAN Internal Medicine Critical Care Medicine | DX: I47.19 Other supraventricular tachycardia (principal); I49.3 Ventricular premature depolarization; I25.10 Atherosclerotic heart disease of native coronary artery without angina pectoris; I48.92 Unspecified atrial flutter | CPT/HCPCS: 93306 ==

== ENCOUNTER 2024-05-08 18:29 | Emergency (ER) | payer OTHER, SELFPAY ==
[2024-05-08 18:36] VITALS: BP 162/71
[2024-05-08 19:03] LABS: % Basophils 1.2 % (0-2); % Eosinophils 9.2 % (0-6); % Immature Granulocytes 0.4 % (0-0.5); % Lymphocytes 12.9 % (20.5-51.1); % Monocytes 9.9 % (1.7-9.3); % Neutrophils 66.4 % (42.2-75.2); Absolute Basophils 0.1 10^3/uL (0-0.2); Absolute Eosinophils 0.8 10^3/uL (0-0.7); Absolute Lymphocytes 1.1 10^3/uL (1.2-3.4); Absolute Monocytes 0.8 10^3/uL (0.1-0.6); Absolute Neutrophils 5.6 10^3/uL (1.4-6.5); Hematocrit 45.2 % (39.0-52.0); Hemoglobin 15.2 g/dL (13.0-18.0); Mean Corp Hgb Conc. 33.6 g/dL (33.0-37.0); Mean Corpuscular Hgb 30.8 pg (27.0-31.0); Mean Corpuscular Volume 91.5 fL (80.0-94.0); Mean Platelet Volume 9.6 fL (7.4-10.4); Nucleated Red Blood Cells % 0 % (-); Platelet Count 614 10^3/uL (130-400); Red Blood Cell Count 4.94 10^6/uL (4.70-6.10); Red Cell Dist. Width 13.9 % (11.5-14.5); White Blood Cell Count 8.4 10^3/uL (4.8-10.8)
[2024-05-08 19:18] LABS: ALT (SGPT) 29 U/L (0-50); AST (SGOT) 27 U/L (17-59); Albumin 4.6 g/dl (3.5-5.0); Alkaline Phosphatase 94 U/L (38-126); Blood Urea Nitrogen 25 mg/dl (9-20); Calcium 9.6 mg/dl (8.4-10.2); Carbon Dioxide 29 mmol/L (22-30); Chloride 98 mmol/L (98-107); Glucose 101 mg/dl (70-99); Potassium 5.3 mmol/L (3.5-5.1); Sodium 135 mmol/L (135-145); Total Bilirubin 0.5 mg/dl (0.2-1.3); Total Protein 7.3 g/dl (6.3-8.2); eGFR > 60.00
[2024-05-08 19:25] LABS: Troponin I < 0.012 ng/ml
[2024-05-08 21:22] VITALS: BP 166/72
--- NOTE | 2024-05-09 00:28 | ED.GENMED ---
History of Present Illness
General
Chief Complaint: Blood Pressure Problem
Source: patient
Exam Limitations: none
Time Seen by Provider: 05/09/24 00:28
Nursing documentation reviewed up to this point in time: agreed with
History of Present Illness
History of Present Illness:
The patient is a pleasant 78-year-old man with a past medical history of lung cancer, COPD, hyperlipidemia, hypertension and A-fib who reports that he normally takes his blood pressure 3 times a day and over the last few days it has been elevated.
Patient reports this concerned him. Additionally, patient reports that he is been experiencing left-sided chest tightness intermittently for several hours at a time for several days now. Patient also reports that his doctor recently prescribed him
doxycycline for a possible lung infection, as he has been coughing and has had congestion in his chest. Patient denies leg pain and leg swelling. He denies shortness of breath. Patient reports that he accidentally skipped a dose of Pradaxa but
will restart it as normal.
Past History
Past History
ED Past Medical History: Arrthythmia (Atrial fibrillation), Asthma, Cancer (Lung cancer 2005), COPD, GERD (Hiatal hernia), Other (Irritable bowel disease, prostatic hypertrophy, glaucoma) and Other (Bronchiectasis)
ED Past Surgical History: Other (Left lung lobectomy August 2005, hemorrhoidectomy, inguinal hernia repair)
Social History
Tobacco: Former smoker (Quit with lung cancer diagnosis 2005)
Alcohol: None
Drug: None
Personal:
Living: alone
Employment: Employed (Musician)
Family History
Family History: Hypertension
Review of Systems
Review of Systems
Allergies reviewed?: Yes
All Other Systems: ROS reviewed and negative except as documented in HPI and ROS
Constitutional: Reports no symptoms
EENT: Reports no symptoms
Respiratory: Reports cough
Cardiac: Reports chest pain
ABD/GI: Reports no symptoms
: Reports no symptoms
Musculoskeletal: Reports no symptoms
Skin: Reports no symptoms
Neurological: Reports no symptoms
Endocrine: Reports no symptoms
Hematologic/Lymphatic: Reports no symptoms
Psychiatric: Reports no symptoms
Phy Exam
Physical Exam
Physical Exam:
Physical Exam
General: no apparent distress, not acutely ill. Patient is conversational, smiling
Neck: supple.
Heart: s1/s2 regular rate and rhythm,
Lungs: no acute respiratory distress. Mild rhonchi. No crackles or wheezing. Speaking in full sentences without any difficulty. No reproducible chest pain when taking a deep breath
Abdomen: normal bowel sounds. not tender. no CVAT
Neuro: alert and oriented. no focal neurological deficits
Skin: no rash
Psychiatric: well kept. interactive and cooperative
Extremities: no edema. no calf tenderness. negative homans. good distal pulses
Course
Orders/Labs/Results
Orders:
Orders
05/08/24 18:40
Electrocardiogram (*1) Urgent
Reason for Study: Chest Pain
EKG- Treatment ONCE
05/08/24 18:53
Complete Blood Count/With Diff Urgent
Comprehensive Metabolic Panel Urgent
Troponin I Urgent
Abnormal Lab Results
05/08/24
18:53
Plt Count 614 H 10^3/uL
(130-400)
Absolute Lymphs (auto) 1.1 L 10^3/uL
(1.2-3.4)
Absolute Monos (auto) 0.8 H 10^3/uL
(0.1-0.6)
Absolute Eos (auto) 0.8 H 10^3/uL
(0-0.7)
Lymphocytes % 12.9 L %
(20.5-51.1)
Monocytes % 9.9 H %
(1.7-9.3)
Eosinophils % 9.2 H %
(0-6)
Potassium 5.3 H mmol/L
(3.5-5.1)
BUN 25 H mg/dl
(9-20)
Glucose 101 H mg/dl
(70-99)
05/08/24 18:53
05/08/24 18:53
Vital Signs
Initial and Last Documented VS:
Initial Vital Signs
Temp Pulse Resp BP Pulse Ox
98.1 F 59 16 162/71 100
05/08/24 18:36 05/08/24 18:36 05/08/24 18:36 05/08/24 18:36 05/08/24 18:36
Last Documented Vital Signs
Temp Pulse Resp BP Pulse Ox
98.1 F 62 20 168/78 100
05/08/24 18:36 05/09/24 00:33 05/09/24 00:33 05/09/24 00:33 05/09/24 00:33
MDM/Problems Addressed
Differential Diagnosis Includes:
Acute coronary syndrome, PE, pneumonia, hypertensive urgency, hypertensive emergency
MDM/Problems Addressed:
Patient presents with reported acutely elevated blood pressure and several days of chest pain
Chronic conditions affecting care: HTN
Acute Exacerbation and/or Progression of Chronic Illness: HTN
*Pulse Oximetry
Patient hypoxic: no
*EKG
Interpreted by ED Provider?: Yes
Interpretation: abnormal
Comparison EKG: no changes
Rate: normal
Rhythm: sinus
[place]: normal axis
Interval: normal interval
QRS Pattern: left bundle branch block
Ischemia: non-specific ST changes
*Teaching Associate Interpretation
Rate: normal
Interpretation: normal
Rhythm: sinus
*Critical Care Note
Total Time (30-74mins, 75-104mins- exclusive of procedures): Not Applicable
Data Reviewed
Review of Other/Old Records Reveals: Testing (Patient had a cardiac echo done March 2024 which showed no significant abnormalities and was very similar compared to prior echo)
Source: patient
Patient Management
Social determinants of health affecting care: Living situation and Strong social support
Escalation/DeEscalation of care consider admission/obs:
Patient appears very well and comfortable. He is smiling and conversational. He is breathing comfortably. He has had no fever and his lungs are free of crackles. Patient already has a prescription for doxycycline issued by his doctor for
increased cough and mucus production and assures me that he will start the doxycycline prescription tomorrow. He is in absolutely no respiratory distress. His oxygen levels are 100% on room air. His EKG is unchanged and his troponin is normal so
it is doubtful he is acute coronary syndrome. He has no pleuritic chest pain to suggest PE
ED Attending Note
-
Portions of this chart may have been created with voice recognition software.� Occasional wrong word or��sound alike� substitutions may have occurred due to the inherent limitations of voice recognition software.
Discharge Plan
Departure
Patient Disposition: Home (Routine Discharge)
Date of Disposition: 05/09/24
Time of Disposition: 00:48
Patient with high blood pressure during this ER visit?: Yes
Condition: Good
Covid-19: Not Applicable
Discharge Problem:
Chest pain in adult
Instructions: Chest Pain CBC Follow Up, BLOOD PRESSURE
Prescriptions:
No Action
dorzolamide 1 DROP drops
1 drp BOTH EYES TID
dutasteride 0.5 mg Capsule
0.5 mg PO DAILY
dabigatran etexilate [Pradaxa] 150 mg Capsule
150 mg PO BID Qty: 180 5RF
Patient Comments:
03/05/24- on hold due to rectal bleeding
dofetilide 125 mcg Capsule
125 mcg PO Q12 Qty: 180 5RF
Vyzulta 0.024 % Drops
1 drp LEFT EYE HS
diltiazem HCl 180 mg Capsule,Extended Release 24 Hr
180 mg PO DAILY@0300
Referrals:
Josr Albarran MD [Family Provider] -
Torsten Green MD [Active] - (Call the office if you do not hear from them within 48 hours)
Activity Restrictions/Additional Instructions:
Start the doxycycline as prescribed by your doctor today.
Follow-up with Dr. Green. If you do not hear from the office within 48 hours, please give the cardiology office a call
Interventions
Interventions:
*Risk Screen - Suicide Last Done: 05/08/24 18:36
*General Assessment Last Done: 05/08/24 18:36
*Neglect/Abuse Screening Last Done: 05/08/24 18:36
ED- Fall Risk Assessment Last Done: 05/09/24 00:37
*ED COVID-19 Vaccine History Last Done: 05/09/24 00:37
*Nursing Disposition Last Done: 05/09/24 01:17
ED- Cardiac Assessment Last Done: 05/09/24 00:43
ED- Neurological Assessment Last Done: 05/09/24 00:43
ED- Pulmonary Assessment Last Done: 05/09/24 00:43
Discharge Date and Time
Discharge Date/Time: 05/09/24 01:17
Print Language: BELARUSIAN
[2024-05-09 00:33] VITALS: BP 168/78; BMI 19.4
== END 2024-05-09 01:17 | disposition home or self-care (01) ==
LOC: EMR 18:29
PROVIDERS: Emergency Medicine; EMERGENCY PHYSICIAN Emergency Medicine; FAMILY PHYSICIAN Internal Medicine
DX: R07.89 Other chest pain (principal); E78.5 Hyperlipidemia, unspecified; J44.89 Other specified chronic obstructive pulmonary disease; I10 Essential (primary) hypertension; I48.91 Unspecified atrial fibrillation; K21.9 Gastro-esophageal reflux disease without esophagitis; Z85.118 Personal history of other malignant neoplasm of bronchus and lung; Z87.891 Personal history of nicotine dependence
CPT/HCPCS: 99284; 80053; 84484; 85025; 93005

== ENCOUNTER → 2024-05-14 08:38 | Outpatient (REF) | payer OTHER, SELFPAY | LOC: REG 08:38 | PROVIDERS: ATTENDING PHYSICIAN Nurse Practitioner Family; FAMILY PHYSICIAN Internal Medicine | DX: R05.3 Chronic cough (principal) | CPT/HCPCS: 36415; 87070; 87205 ==

== ENCOUNTER → 2024-05-17 14:00 | Outpatient (REF) | payer OTHER, SELFPAY | LOC: RAD 14:00 | PROVIDERS: ATTENDING PHYSICIAN Nurse Practitioner Family | DX: R05.3 Chronic cough (principal) | CPT/HCPCS: 71046 ==

== ENCOUNTER 2024-07-10 00:23 | Emergency (ER) | payer OTHER, SELFPAY ==
[2024-07-10 00:23] VITALS: BP 166/77
[2024-07-10 03:04] VITALS: BP 156/63
[2024-07-10 03:13] VITALS: BMI 21.2
[2024-07-10 04:00] VITALS: BP 151/69
--- NOTE | 2024-07-10 04:10 | ED.GENMED ---
History of Present Illness
General
Chief Complaint: Fall
Source: patient
Exam Limitations: none
Time Seen by Provider: 07/10/24 03:35
Nursing documentation reviewed up to this point in time: agreed with
History of Present Illness
History of Present Illness:
78-year-old [id number] gentleman states while walking in the park yesterday afternoon he came upon a friend who was walking his dog and the dog inadvertently bit his left lateral lower leg. He complains of mild pain to his left lateral
lower leg. There was no bleeding. After the dog bite he then ventured to [facility] and while attempting to investigate the dog bite wound on his leg he lost his balance, falling forward onto his outstretched right hand. He denies head injury, no loss
of consciousness. Injury occurred around 2 PM yesterday.
He complains of persistent pain primarily right wrist with swelling of his wrist that radiates to his forearm and to his right hand. He denies weakness nor numbness. He has not taken anything for pain.
Past History
Past History
ED Past Medical History: Arrthythmia (Atrial fibrillation), Asthma, Cancer (Lung cancer 2005), COPD, GERD (Hiatal hernia), Other (Irritable bowel disease, prostatic hypertrophy, glaucoma) and Other (Bronchiectasis)
ED Past Surgical History: Other (Left lung lobectomy August 2005, hemorrhoidectomy, inguinal hernia repair)
Social History
Tobacco: Former smoker (Quit with lung cancer diagnosis 2005)
Alcohol: None
Drug: None
Personal:
Living: alone
Employment: Employed (Musician)
Family History
Family History: Hypertension
Phy Exam
Physical Exam
Physical Exam:
GENERAL: 78-year-old gentleman appears his stated age, awake and alert, pleasant, appears in no acute distress. Easily communicative.
EYE: Mild conjunctival injection bilaterally with mild bilateral lower lid inflammation right greater than left. Anicteric
NECK: Supple, nontender, no meningismus, no significant adenopathy.
ENT: oral mucosa is moist. No rhinorrhea.
CARDIAC: Regular rate and rhythm. no murmur.
LUNGS: Clear breath sounds bilaterally, no acute respiratory distress, no wheezes/rales/rhonchi
ABDOMEN: Soft, nondistended, without focal tenderness, no r/g, no cvat. normoactive BS.
NEUROLOGICAL: Alert and oriented x3, no focal neuro deficits. Gait is lam and steady.
SKIN: Warm and dry, normal color, good turgor. The left lateral lower leg just superior to the ankle has a superficial mild ecchymosis. There is 1 minute very superficial abrasion but no puncture wound, no laceration, no soft tissue swelling, no
tenderness to palpation.
MUSCULOSKELETAL: No C/C/E. peripheral pulses are full and equal b/l. Right wrist has mild soft tissue swelling primarily dorsal radial aspect with mild to moderate local tenderness to palpation, mildly restricted range of motion of right wrist
related to pain. There is no snuffbox tenderness. No tenderness to the hand nor forearm nor elbow. Full elbow range of motion without difficulty nor pain. Minimally limited full flexion of digits of right hand related to pain at rest. Distal
sensation and strength intact.
PSYCH: Normal and appropriate interaction.
Course
Orders/Labs/Results
Orders:
Orders
07/10/24 00:00
CR Wrist - Right Min 3 Views Urgent
Comment:
Reason For Exam: fall, pain
07/10/24 00:30
CR Forearm - Right 2 View Urgent
Comment:
Reason For Exam: fall, pain
CR Hand - Right Min 3 Views Urgent
Comment:
Reason For Exam: fall, pain
07/10/24 04:05
Univ. Wrist w/ Thumb Right-Tx ONCE
07/10/24 04:10
Acetaminophen [Tylenol] 1,000 mg PO NOW STA
Vital Signs
Initial and Last Documented VS:
Initial Vital Signs
Temp Pulse Resp BP Pulse Ox
98.1 F 60 18 166/77 100
07/10/24 00:23 07/10/24 00:23 07/10/24 00:23 07/10/24 00:23 07/10/24 00:23
Last Documented Vital Signs
Temp Pulse Resp BP Pulse Ox
98.1 F 60 18 156/63 99
07/10/24 00:23 07/10/24 00:23 07/10/24 00:23 07/10/24 03:04 07/10/24 03:45
MDM/Problems Addressed
Differential Diagnosis Includes:
Concern for right wrist fracture.
X-rays reviewed, no evidence of fracture of wrist, hand, forearm.
Will place in universal wrist splint and give a dose of Tylenol for pain.
Recommend ice, elevation. Will refer to orthopedics for follow-up as needed.
Left lateral lower leg has an area of very superficial bruising as well as a minute area of superficial abrasion. There is no puncture wound, no erythema. At this point no indication for oral antibiotic but recommend local care with bacitracin
ointment for a minute superficial abrasion. Patient believes his friend's dog is up-to-date with immunizations.
*Radiology
Radiology exam reviewed: all reviewed NAD by ED Provider
*Pulse Oximetry
Patient hypoxic: no
*Critical Care Note
Total Time (30-74mins, 75-104mins- exclusive of procedures): Not Applicable
ED Attending Note
-
Portions of this chart may have been created with voice recognition software.� Occasional wrong word or��sound alike� substitutions may have occurred due to the inherent limitations of voice recognition software.
Discharge Plan
Departure
Patient Disposition: Home (Routine Discharge)
Date of Disposition: 07/10/24
Time of Disposition: 04:10
Patient with high blood pressure during this ER visit?: No
Condition: Good
Discharge Problem:
Sprain and strain of right wrist, Superficial wound due to dog bite
Instructions: Wrist Sprain ED, Animal Bites ED
Prescriptions:
No Action
dorzolamide 1 DROP drops
1 drp BOTH EYES TID
dutasteride 0.5 mg Capsule
0.5 mg PO DAILY
dabigatran etexilate [Pradaxa] 150 mg Capsule
150 mg PO BID Qty: 180 5RF
Patient Comments:
03/05/24- on hold due to rectal bleeding
dofetilide 125 mcg Capsule
125 mcg PO Q12 Qty: 180 5RF
Vyzulta 0.024 % Drops
1 drp LEFT EYE HS
diltiazem HCl 180 mg Capsule,Extended Release 24 Hr
180 mg PO DAILY@0300
Referrals:
Mumtaz Hernandez MD [Active] - As needed
Jayy Luciano MD [Family Provider] - Call in 1-3 days for appt
Interventions
Interventions:
*Risk Screen - Suicide Last Done: 07/10/24 00:23
*General Assessment Last Done: 07/10/24 00:23
*Neglect/Abuse Screening Last Done: 07/10/24 00:23
*ED- Fall Risk Assessment Last Done: 07/10/24 03:13
*ED COVID-19 Vaccine History Last Done: 07/10/24 03:13
ED-Musculoskeletal Assessment Last Done: 07/10/24 03:13
ED- Neurological Assessment Last Done: 07/10/24 03:13
ED-Skin Assessment Last Done: 07/10/24 03:13
Discharge Date and Time
Print Language: BENGALI
[2024-07-10] MEDS: TYLENOL 1000 MG PO (04:23)
== END 2024-07-10 04:59 | disposition home or self-care (01) ==
LOC: EMR 00:23
PROVIDERS: EMERGENCY PHYSICIAN Emergency Medicine; FAMILY PHYSICIAN Family Medicine
DX: S66.911A Strain of unspecified muscle, fascia and tendon at wrist and hand level, right hand, initial encounter (principal); W01.0XXA Fall on same level from slipping, tripping and stumbling without subsequent striking against object, initial encounter; I48.91 Unspecified atrial fibrillation; K21.9 Gastro-esophageal reflux disease without esophagitis; K58.9 Irritable bowel syndrome, unspecified; N40.0 Benign prostatic hyperplasia without lower urinary tract symptoms; Y93.K1 Activity, walking an animal; Z82.49 Family history of ischemic heart disease and other diseases of the circulatory system; Z85.118 Personal history of other malignant neoplasm of bronchus and lung; Z87.891 Personal history of nicotine dependence
CPT/HCPCS: 99283; 73090; 73110; 73130

== ENCOUNTER 2024-07-12 17:17 | Emergency (ER) | payer OTHER, SELFPAY ==
[2024-07-12 17:25] VITALS: BP 161/73
[2024-07-12 17:54] VITALS: BP 139/58
[2024-07-12 17:57] VITALS: BMI 20.1
[2024-07-12 18:00] VITALS: BP 145/57
[2024-07-12 19:03] LABS: % Basophils 1.4 % (0-2); % Eosinophils 8.9 % (0-6); % Immature Granulocytes 0.1 % (0-0.5); % Lymphocytes 13.8 % (20.5-51.1); % Monocytes 10.2 % (1.7-9.3); % Neutrophils 65.6 % (42.2-75.2); Absolute Basophils 0.1 10^3/uL (0-0.2); Absolute Eosinophils 0.6 10^3/uL (0-0.7); Absolute Monocytes 0.7 10^3/uL (0.1-0.6); Absolute Neutrophils 4.6 10^3/uL (1.4-6.5); Hematocrit 40.6 % (39.0-52.0); Hemoglobin 13.7 g/dL (13.0-18.0); Mean Corp Hgb Conc. 33.7 g/dL (33.0-37.0); Mean Corpuscular Hgb 30.5 pg (27.0-31.0); Mean Corpuscular Volume 90.4 fL (80.0-94.0); Mean Platelet Volume 9.7 fL (7.4-10.4); Nucleated Red Blood Cells % 0 % (-); Platelet Count 597 10^3/uL (130-400); Red Blood Cell Count 4.49 10^6/uL (4.70-6.10); Red Cell Dist. Width 14.1 % (11.5-14.5); White Blood Cell Count 7.1 10^3/uL (4.8-10.8)
[2024-07-12 19:23] LABS: ALT (SGPT) 22 U/L (0-50); AST (SGOT) 23 U/L (17-59); Albumin 4.4 g/dl (3.5-5.0); Alkaline Phosphatase 83 U/L (38-126); Blood Urea Nitrogen 23 mg/dl (9-20); Carbon Dioxide 26 mmol/L (22-30); Chloride 100 mmol/L (98-107); Estimated Creatinine Clearance 45 ml/min; Glucose 107 mg/dl (70-99); Potassium 4.9 mmol/L (3.5-5.1); Sodium 134 mmol/L (135-145); Total Bilirubin 0.7 mg/dl (0.2-1.3); Total Protein 6.9 g/dl (6.3-8.2); eGFR > 60.00
[2024-07-12 19:26] LABS: Troponin I < 0.012 ng/ml
--- NOTE | 2024-07-12 19:29 | ED.GENMED ---
History of Present Illness
General
Chief Complaint: Cardiac Symptoms
Source: patient
Exam Limitations: none
Time Seen by Provider: 07/12/24 18:24
Nursing documentation reviewed up to this point in time: agreed with
History of Present Illness
History of Present Illness:
78-year-old male with past medical history of A-fib on Pradaxa, hypertension, asthma presenting to the emergency department today with concerns of a brief chest pain roughly an hour prior to arrival to the emergency department. Also had some
palpitations. Denies any ongoing chest pain. Denies any shortness of breath nausea vomiting numbness weakness.,
Past History
Past History
ED Past Medical History: Arrthythmia (Atrial fibrillation), Asthma, Cancer (Lung cancer 2005), COPD, GERD (Hiatal hernia), Other (Irritable bowel disease, prostatic hypertrophy, glaucoma) and Other (Bronchiectasis)
ED Past Surgical History: Other (Left lung lobectomy August 2005, hemorrhoidectomy, inguinal hernia repair)
Social History
Tobacco: Former smoker (Quit with lung cancer diagnosis 2005)
Alcohol: None
Drug: None
Personal:
Living: alone
Employment: Employed (Musician)
Family History
Family History: Hypertension
Review of Systems
Review of Systems
Allergies reviewed?: Yes
All Other Systems: ROS reviewed and negative except as documented in HPI and ROS
Phy Exam
Physical Exam
Physical Exam:
GENERAL: Alert , in no apparent distress
EYE: pupils equal and reactive
NECK: Supple, no significant adenopathy.
ENT: o/p clr, mmm.
CARDIAC: Regular rate and rhythm .
LUNGS: Clear breath sounds bilaterally, no acute respiratory distress, no wheezes/rales/rhonchi
ABDOMEN: Soft, without focal tenderness, no r/g, no cvat
NEUROLOGICAL: Alert and oriented, no focal neuro deficits
SKIN: Warm and dry, skin intact.
MUSCULOSKELETAL: No edema, well perfused.
PSYCH: Normal and appropriate interaction.
Course
Orders/Labs/Results
Orders:
Orders
07/12/24 17:18
Electrocardiogram (*1) Urgent
Reason for Study: Palpitations
EKG- Treatment ONCE
07/12/24 18:49
CR Chest - 2 Views Urgent
Comment:
Reason For Exam: cp
07/12/24 18:56
Complete Blood Count/With Diff Urgent
Comprehensive Metabolic Panel Urgent
Troponin I Urgent
Abnormal Lab Results
07/12/24
18:56
RBC 4.49 L 10^6/uL
(4.70-6.10)
Plt Count 597 H 10^3/uL
(130-400)
Absolute Lymphs (auto) 1.0 L 10^3/uL
(1.2-3.4)
Absolute Monos (auto) 0.7 H 10^3/uL
(0.1-0.6)
Lymphocytes % 13.8 L %
(20.5-51.1)
Monocytes % 10.2 H %
(1.7-9.3)
Eosinophils % 8.9 H %
(0-6)
Sodium 134 L mmol/L
(135-145)
BUN 23 H mg/dl
(9-20)
Glucose 107 H mg/dl
(70-99)
07/12/24 18:56
07/12/24 18:56
Vital Signs
Initial and Last Documented VS:
Initial Vital Signs
Temp Pulse Resp BP Pulse Ox
97.6 F 70 18 161/73 99
07/12/24 17:25 07/12/24 17:25 07/12/24 17:25 07/12/24 17:25 07/12/24 17:25
Last Documented Vital Signs
Temp Pulse Resp BP Pulse Ox
97.6 F 64 16 145/57 100
07/12/24 17:25 07/12/24 19:15 07/12/24 19:15 07/12/24 18:00 07/12/24 19:15
MDM/Problems Addressed
MDM/Problems Addressed:
78-year-old male presenting to the emergency department today with concerns of brief episode of palpitations chest pain for few minutes but an hour prior to arrival to the emergency department. Patient does have a history of paroxysmal A-fib on
Pradaxa. Here EKG without emergent findings. No changes. Initial blood pressure elevated but improved without specific treatment. Other vital signs are normal. Patient asymptomatic during my assessment labs unremarkable troponin negative.
Patient without any evidence of emergent findings advised for outpatient follow-up with cardiology. Return precautions given.
*Critical Care Note
Total Time (30-74mins, 75-104mins- exclusive of procedures): Not Applicable
ED Attending Note
-
Portions of this chart may have been created with voice recognition software.� Occasional wrong word or��sound alike� substitutions may have occurred due to the inherent limitations of voice recognition software.
Discharge Plan
Departure
Patient Disposition: Home (Routine Discharge)
Date of Disposition: 07/12/24
Time of Disposition: 19:31
Patient with high blood pressure during this ER visit?: No
Condition: Good
Covid-19: Not Applicable
Discharge Problem:
Chest pain
Instructions: Chest Pain CBC Follow Up
Prescriptions:
No Action
dorzolamide 1 DROP drops
1 drp BOTH EYES TID
dutasteride 0.5 mg Capsule
0.5 mg PO DAILY
dabigatran etexilate [Pradaxa] 150 mg Capsule
150 mg PO BID Qty: 180 5RF
Patient Comments:
03/05/24- on hold due to rectal bleeding
dofetilide 125 mcg Capsule
125 mcg PO Q12 Qty: 180 5RF
Vyzulta 0.024 % Drops
1 drp LEFT EYE HS
diltiazem HCl 180 mg Capsule,Extended Release 24 Hr
180 mg PO DAILY@0300
Referrals:
Josr Albarran MD [Family Provider] -
Activity Restrictions/Additional Instructions:
You came to the emergency department today with concerns of palpitations and chest pain. Here you have a reassuring assessment. Please follow closely with cardiology. Return for any worsening, new or concerning symptoms.
Interventions
Interventions:
*Risk Screen - Suicide Last Done: 07/12/24 17:25
*General Assessment Last Done: 07/12/24 17:57
*Neglect/Abuse Screening Last Done: 07/12/24 17:25
*ED- Fall Risk Assessment Last Done: 07/12/24 17:57
*ED COVID-19 Vaccine History Last Done: 07/12/24 17:25
ED- Pulmonary Assessment Last Done: 07/12/24 18:00
ED- Cardiac Assessment Last Done: 07/12/24 17:59
Discharge Date and Time
Print Language: LITHUANIAN
== END 2024-07-12 20:00 | disposition home or self-care (01) ==
LOC: EMR 17:17
PROVIDERS: Physician Assistant; EMERGENCY PHYSICIAN Emergency Medicine; FAMILY PHYSICIAN Internal Medicine
DX: R07.89 Other chest pain (principal); I48.0 Paroxysmal atrial fibrillation; I10 Essential (primary) hypertension; Z87.891 Personal history of nicotine dependence
CPT/HCPCS: 99284; 80053; 84484; 85025; 93005

== ENCOUNTER → 2024-07-21 10:38 | Outpatient (REF) | payer OTHER, SELFPAY | LOC: REG 10:38 | PROVIDERS: ATTENDING PHYSICIAN Nurse Practitioner Family | DX: R05.3 Chronic cough (principal); J44.9 Chronic obstructive pulmonary disease, unspecified | CPT/HCPCS: 71046; 87070; 87102; 87116; 87205 ==

== ENCOUNTER 2024-11-02 05:40 | Emergency (ER) | payer OTHER, SELFPAY ==
[2024-11-02 05:41] VITALS: BMI 20.1
[2024-11-02 05:44] VITALS: BP 144/69
[2024-11-02 06:00] VITALS: BP 141/62
[2024-11-02 06:17] VITALS: BP 141/62
--- NOTE | 2024-11-02 06:33 | ED.GENMED ---
History of Present Illness
General
Chief Complaint: Headache
Source: patient
Time Seen by Provider: 11/02/24 06:23
History of Present Illness
History of Present Illness:
78 year old male on pradaxa presents with headache onset last night that was dull in nature mild however since then its become more significant worse when he coughs or bears down. The headache is right-sided. He typically does not get headaches.
He denies unilateral numbness or weakness or vision change. Triage note says he is dizzy however he has been dizzy for a long time since he started his new medications. This is not a new symptom. No injury or trauma.
Past History
Past History
ED Past Medical History: Arrthythmia (Atrial fibrillation), Asthma, Cancer (Lung cancer 2005), COPD, GERD (Hiatal hernia), Other (Irritable bowel disease, prostatic hypertrophy, glaucoma) and Other (Bronchiectasis)
ED Past Surgical History: Other (Left lung lobectomy August 2005, hemorrhoidectomy, inguinal hernia repair)
Social History
Tobacco: Former smoker (Quit with lung cancer diagnosis 2005)
Alcohol: None
Drug: None
Personal:
Living: alone
Employment: Employed (Musician)
Family History
Family History: Hypertension
Phy Exam
Physical Exam
Physical Exam:
General: Well-appearing male no acute respiratory distress
HEENT: Normocephalic atraumatic pupils equal round reactive to light
Heart: Regular rate and rhythm
Lungs: Clear no wheeze
Neurologic exam: Alert and oriented no facial asymmetry conversing appropriately no drift
Musculoskeletal exam: The spine is nontender
Course
Orders/Labs/Results
Orders:
Orders
11/02/24 06:31
CT Head W/o Iv Contrast Urgent
Comment:
Reason For Exam: right sided headache, on xarelto
Vital Signs
Initial and Last Documented VS:
Initial Vital Signs
Temp Pulse Resp BP Pulse Ox
97.7 F 62 20 144/69 98
11/02/24 05:44 11/02/24 05:44 11/02/24 05:44 11/02/24 05:44 11/02/24 05:44
Last Documented Vital Signs
Temp Pulse Resp BP Pulse Ox
97.7 F 51 13 141/62 100
11/02/24 05:44 11/02/24 06:15 11/02/24 06:15 11/02/24 06:00 11/02/24 06:44
*Pulse Oximetry
SaO2: 100
Oxygen Mode of Delivery: Room air
Patient hypoxic: no
*Critical Care Note
Total Time (30-74mins, 75-104mins- exclusive of procedures): Not Applicable
Update Note
Update Note:
Headache and anticoagulated patient. Patient typically does not get headaches. Consider tension headache versus migraine versus intracranial hemorrhage given the anticoagulated status. Neurologically there is no deficit. CT pending.
CT negative for acute finding. Patient reassured. Patient is well-appearing in reassessment. No concerning findings. Stable for discharge
ED Attending Note
-
Portions of this chart may have been created with voice recognition software.� Occasional wrong word or��sound alike� substitutions may have occurred due to the inherent limitations of voice recognition software.
Discharge Plan
Departure
Patient Disposition: Home (Routine Discharge)
Date of Disposition: 11/02/24
Time of Disposition: 08:11
Patient with high blood pressure during this ER visit?: No
Discharge Problem:
Headache
Instructions: Headache, Adult (DC)
Prescriptions:
No Action
dorzolamide 1 DROP drops
1 drp BOTH EYES TID
dutasteride 0.5 mg Capsule
0.5 mg PO DAILY
dabigatran etexilate [Pradaxa] 150 mg Capsule
150 mg PO BID Qty: 180 5RF
Patient Comments:
03/05/24- on hold due to rectal bleeding
dofetilide 125 mcg Capsule
125 mcg PO Q12 Qty: 180 5RF
Vyzulta 0.024 % Drops
1 drp LEFT EYE HS
diltiazem HCl 180 mg Capsule,Extended Release 24 Hr
180 mg PO DAILY@0300
Referrals:
UNKNOWN - PT DOES,NOT KNOW [Family Provider]
Activity Restrictions/Additional Instructions:
Use Tylenol for pain. Turn if worse otherwise follow-up with your doctor
Interventions
Interventions:
*Risk Screen - Suicide Last Done: 11/02/24 05:44
*General Assessment Last Done: 11/02/24 05:44
*Neglect/Abuse Screening Last Done: 11/02/24 05:44
*ED- Fall Risk Assessment Last Done: 11/02/24 05:44
*ED COVID-19 Vaccine History Last Done: 11/02/24 05:44
Discharge Date and Time
Print Language: SETSWA[place]
[2024-11-02 07:00] VITALS: BP 159/59
== END 2024-11-02 08:57 | disposition home or self-care (01) ==
LOC: EMR 05:40
PROVIDERS: EMERGENCY PHYSICIAN Emergency Medicine
DX: R51.9 Headache, unspecified (principal); I48.91 Unspecified atrial fibrillation; Z85.118 Personal history of other malignant neoplasm of bronchus and lung; Z87.891 Personal history of nicotine dependence
CPT/HCPCS: 99284; 70450

== ENCOUNTER → 2024-11-07 10:51 | Outpatient (REF) | payer OTHER, SELFPAY | LOC: HWRCS 10:51 | PROVIDERS: ATTENDING PHYSICIAN Nurse Practitioner Gerontology; FAMILY PHYSICIAN Internal Medicine | DX: R07.9 Chest pain, unspecified (principal); I25.10 Atherosclerotic heart disease of native coronary artery without angina pectoris | CPT/HCPCS: 93306 ==

== ENCOUNTER 2024-11-19 00:29 | Emergency (ER) | payer OTHER, SELFPAY ==
[2024-11-19 00:54] VITALS: BP 116/74
[2024-11-19 01:31] VITALS: BP 168/66
--- NOTE | 2024-11-19 01:40 | ED.GENMED ---
History of Present Illness
General
Chief Complaint: Cardiac Symptoms
Time Seen by Provider: 11/19/24 01:24
History of Present Illness
History of Present Illness:
78-year-old male with history of paroxysmal A-fib, COPD, and lung cancer presents to the emergency department for evaluation of nontraumatic left arm pain that began earlier in the day. No obvious provoking or palliating factors. No associated
chest pain or shortness of breath. No fevers or chills. No new medications. No tingling or paresthesias to the arm.
Past History
Past History
ED Past Medical History: Arrthythmia (Atrial fibrillation), Asthma, Cancer (Lung cancer 2005), COPD, GERD (Hiatal hernia), Other (Irritable bowel disease, prostatic hypertrophy, glaucoma) and Other (Bronchiectasis)
ED Past Surgical History: Other (Left lung lobectomy August 2005, hemorrhoidectomy, inguinal hernia repair)
Social History
Tobacco: Former smoker (Quit with lung cancer diagnosis 2005)
Alcohol: None
Drug: None
Personal:
Living: alone
Employment: Employed (Musician)
Family History
Family History: Hypertension
Review of Systems
Review of Systems
Allergies reviewed?: Yes
All Other Systems: ROS reviewed and negative except as documented in HPI and ROS
Phy Exam
Physical Exam
Physical Exam:
GEN: Well appearing, NAD, WDWN
HEENT: Oral mucosa moist, no scleral icterus
Cardiac: Regular rate and rhythm, no murmur
Lung: No respiratory distress, no tachypnea, lungs clear to auscultation bilaterally
MSK: No gross deformity or injuries
Skin: Good color, no pallor or jaundice, no rashes
Neuro: AO x3, moves all extremities freely
Psych: Calm, cooperative
Course
Orders/Labs/Results
Orders:
Orders
11/19/24 00:33
EKG [Electrocardiogram (*1)] Urgent
Reason for Study: Chest Pain
Other Reason for Exam: l arm pain
11/19/24 00:34
EKG- Treatment ONCE
11/19/24 02:01
Complete Blood Count/With Diff Urgent
Comprehensive Metabolic Panel Urgent
Troponin I Urgent
11/19/24 02:17
CR Chest - 2 Views Urgent
Comment:
Reason For Exam: L arm pain
Abnormal Lab Results
11/19/24
02:01
RBC 4.64 L 10^6/uL
(4.70-6.10)
MCH 31.3 H pg
(27.0-31.0)
Plt Count 626 H 10^3/uL
(130-400)
Absolute Monos (auto) 0.9 H 10^3/uL
(0.1-0.6)
Absolute Eos (auto) 0.8 H 10^3/uL
(0-0.7)
Lymphocytes % 13.3 L %
(20.5-51.1)
Eosinophils % 9.0 H %
(0-6)
BUN 28 H mg/dl
(9-20)
11/19/24 02:01
11/19/24 02:01
Vital Signs
Initial and Last Documented VS:
Initial Vital Signs
Temp Pulse Resp BP Pulse Ox
97.5 F 68 16 116/74 99
11/19/24 00:54 11/19/24 00:54 11/19/24 00:54 11/19/24 00:54 11/19/24 00:54
Last Documented Vital Signs
Temp Pulse Resp BP Pulse Ox
97.5 F 60 23 144/63 100
11/19/24 00:54 11/19/24 02:00 11/19/24 02:00 11/19/24 02:00 11/19/24 02:00
MDM/Problems Addressed
MDM/Problems Addressed:
Patient has no reproducible left arm pain. Radial pulses strong and he has no neurologic deficits objectively. Cardiac workup is grossly benign, chest x-ray looks comparable to past x-rays. Doubt acute coronary syndrome, doubt thoracic aortic
dissection, favor cervical radiculopathy/brachial neuritis
Comment
Comment:
EKG independently interpreted by me shows a sinus bradycardia with a first-degree AV block at a rate of [address] changes concerning for ischemia
*Pulse Oximetry
SaO2: 99
Oxygen Mode of Delivery: Room air
Patient hypoxic: no
*Critical Care Note
Total Time (30-74mins, 75-104mins- exclusive of procedures): Not Applicable
ED Attending Note
-
Portions of this chart may have been created with voice recognition software.� Occasional wrong word or��sound alike� substitutions may have occurred due to the inherent limitations of voice recognition software.
Discharge Plan
Departure
Patient Disposition: Home (Routine Discharge)
Date of Disposition: 11/19/24
Time of Disposition: 02:34
Patient with high blood pressure during this ER visit?: No
Discharge Problem:
Arm pain, left
Instructions: Burners or Stingers (DC)
Prescriptions:
No Action
dorzolamide 1 DROP drops
1 drp BOTH EYES TID
dutasteride 0.5 mg Capsule
0.5 mg PO DAILY
dabigatran etexilate [Pradaxa] 150 mg Capsule
150 mg PO BID Qty: 180 5RF
Patient Comments:
03/05/24- on hold due to rectal bleeding
dofetilide 125 mcg Capsule
125 mcg PO Q12 Qty: 180 5RF
Vyzulta 0.024 % Drops
1 drp LEFT EYE HS
diltiazem HCl 180 mg Capsule,Extended Release 24 Hr
180 mg PO DAILY@0300
brimonidine 0.1 % Drops
1 drp OPHTHALMIC (EYE) TID
Referrals:
Josr Albarran MD [Family Provider, Internal Medicine]
Activity Restrictions/Additional Instructions:
Your labs are reassuring, EKG does not show any concerns. Cause of your pain is not clear however may be from a pinched nerve in the neck or upper back. Please take Tylenol and use topical lidocaine patches for pain
Interventions
Interventions:
*Risk Screen - Suicide Last Done: 11/19/24 00:54
*General Assessment Last Done: 11/19/24 02:00
*Neglect/Abuse Screening Last Done: 11/19/24 02:00
*ED- Fall Risk Assessment Last Done: 11/19/24 02:00
*ED COVID-19 Vaccine History Last Done: 11/19/24 02:00
ED- Pulmonary Assessment Last Done: 11/19/24 02:15
ED- Cardiac Assessment Last Done: 11/19/24 02:15
Discharge Date and Time
Print Language: SLOVAK
[2024-11-19 02:00] VITALS: BP 144/63
[2024-11-19 02:09] VITALS: BMI 19.1
[2024-11-19 02:09] LABS: Hematocrit 41.9 % (39.0-52.0); Hemoglobin 14.5 g/dL (13.0-18.0); Mean Corp Hgb Conc. 34.6 g/dL (33.0-37.0); Mean Corpuscular Volume 90.3 fL (80.0-94.0); Nucleated Red Blood Cells % 0 % (-); Platelet Count 626 10^3/uL (130-400); Red Cell Dist. Width 13.5 % (11.5-14.5)
[2024-11-19 02:25] LABS: ALT (SGPT) 18 U/L (0-50); AST (SGOT) 18 U/L (17-59); Albumin 4.4 g/dl (3.5-5.0); Alkaline Phosphatase 65 U/L (38-126); Blood Urea Nitrogen 28 mg/dl (9-20); Calcium 9.5 mg/dl (8.4-10.2); Carbon Dioxide 27 mmol/L (22-30); Chloride 105 mmol/L (98-107); Estimated Creatinine Clearance 38 ml/min; Glucose 81 mg/dl (70-99); Potassium 4.5 mmol/L (3.5-5.1); Sodium 138 mmol/L (135-145); Total Protein 7.0 g/dl (6.3-8.2); eGFR 55.88
[2024-11-19 02:32] LABS: Troponin I < 0.012 ng/ml
== END 2024-11-19 03:06 | disposition home or self-care (01) ==
LOC: EMR 00:29
PROVIDERS: Physician Assistant; EMERGENCY PHYSICIAN Emergency Medicine; FAMILY PHYSICIAN Internal Medicine
DX: M79.602 Pain in left arm (principal); I48.0 Paroxysmal atrial fibrillation; J44.89 Other specified chronic obstructive pulmonary disease; K58.9 Irritable bowel syndrome, unspecified; N40.0 Benign prostatic hyperplasia without lower urinary tract symptoms; Z82.49 Family history of ischemic heart disease and other diseases of the circulatory system; Z85.118 Personal history of other malignant neoplasm of bronchus and lung; Z87.891 Personal history of nicotine dependence
CPT/HCPCS: 99283; 71046; 80053; 84484; 85025; 93005

== ENCOUNTER 2024-11-19 21:01 | Emergency (ER) | payer OTHER, SELFPAY ==
[2024-11-19 21:06] VITALS: BP 142/69
[2024-11-19 22:59] VITALS: BMI 19.7
--- NOTE | 2024-11-19 23:51 | ED.GENMED ---
History of Present Illness
General
Chief Complaint: Extremity Pain (non-traumatic)
Source: patient and previous hospital records (ED visit earlier this morning for very similar complaint. Unremarkable ED workup including unremarkable cardiac workup.)
Exam Limitations: none
Time Seen by Provider: 11/19/24 23:24
Nursing documentation reviewed up to this point in time: agreed with
History of Present Illness
History of Present Illness:
This is a 78-year-old male with history of paroxysmal atrial fibrillation chronically maintained on Pradaxa, history of hypertension, remote history of lung cancer status post left upper lobe resection 2005, COPD, glaucoma. He returns to the ED
with continued left upper arm pain, atraumatic. Pain began 2 days ago, initially left upper arm radiating to his left forearm. No weakness no numbness.
He denies injury but admits to being quite active, playing guitar etc.
No other associated symptoms.
Evaluated in this ED early this morning for similar complaint. Unremarkable EKG, unremarkable chest x-ray showing stable chronic postsurgical scarring, unremarkable laboratory studies including negative troponin.
Recommended to take Tylenol as well as lidocaine patch which he has not attempted as yet.
He returns tonight with continued pain of left arm now seems to intermittently radiate to his left posterior shoulder/left upper trapezius region, left lateral posterior neck and occasionally to left upper lateral chest wall. He denies cough no
shortness of breath, no weakness or numbness, no headache, no palpitations, no dizziness or lightheadedness.
Left shoulder to the trapezius pain does seem worse with raising his left arm above his head.
He has not been taking anything for discomfort.
Currently being treated by [facility] commodity management specialist for bilateral eye glaucoma. On several different eyedrops. Due to glaucoma has been recommended to avoid any and all steroids.
Past History
Past History
ED Past Medical History: Arrthythmia (Atrial fibrillation), Asthma, Cancer (Lung cancer 2005), COPD, GERD (Hiatal hernia), Other (Irritable bowel disease, prostatic hypertrophy, glaucoma) and Other (Bronchiectasis)
ED Past Surgical History: Other (Left lung lobectomy August 2005, hemorrhoidectomy, inguinal hernia repair)
Social History
Tobacco: Former smoker (Quit with lung cancer diagnosis 2005)
Alcohol: None
Drug: None
Personal:
Living: alone
Employment: Employed (Musician)
Family History
Family History: Hypertension
Phy Exam
Physical Exam
Physical Exam:
GENERAL: 78-year-old gentleman appears his stated age, bright and alert, pleasant, easily communicative and in no acute distress.
EYE: Mild conjunctival injection bilaterally.
NECK: Supple, nontender, no midline bony tenderness, no meningismus, no significant adenopathy. Mild tenderness left superior trapezius musculature. Full cervical range of motion with mild left cervical pain with left rotation.
ENT: oral mucosa is moist. No rhinorrhea.
CARDIAC: Regular rate and rhythm. no murmur. Mild tenderness left upper chest wall at lateral pectoralis musculature. No soft tissue swelling.
LUNGS: Clear breath sounds bilaterally, no acute respiratory distress, no wheezes/rales/rhonchi
ABDOMEN: Soft, nondistended, without focal tenderness, normoactive BS.
NEUROLOGICAL: Alert and oriented x3, no focal neuro deficits. Gait is lam and steady.
SKIN: Warm and dry, normal color, skin intact. No rash.
MUSCULOSKELETAL: No C/C/E. peripheral pulses are full and equal b/l. There is very mild tenderness posterior proximal aspect of the forearm. No soft tissue swelling. No tenderness about the elbow nor shoulder. There is full shoulder range of
motion with mild pain anterior/medial shoulder region with abduction greater then 100 degrees. There is no crepitus. Hand grasp are full and equal bilaterally.
PSYCH: Normal and appropriate interaction.
Course
Orders/Labs/Results
Orders:
Orders
11/19/24 21:08
EKG [Electrocardiogram (*1)] Urgent
Reason for Study: Chest Pain
EKG- Treatment ONCE
11/19/24 23:49
Acetaminophen [Tylenol] 1,000 mg PO NOW STA
Lidocaine [Lidocaine 4% Patch] 1 patch TOPICAL NOW STA
Apply Lidocaine patch(s) to:: apply to L post shoulder
Vital Signs
Initial and Last Documented VS:
Initial Vital Signs
Temp Pulse Resp BP Pulse Ox
97.3 F 65 16 142/69 100
11/19/24 21:06 11/19/24 21:06 11/19/24 21:06 11/19/24 21:06 11/19/24 21:06
Last Documented Vital Signs
Temp Pulse Resp BP Pulse Ox
97.3 F 65 16 142/69 99
11/19/24 21:06 11/19/24 21:06 11/19/24 21:06 11/19/24 21:06 11/19/24 23:03
MDM/Problems Addressed
Differential Diagnosis Includes:
History and exam most consistent with musculoskeletal pain versus cervical radiculopathy.
Other consideration is ACS however EKG is unremarkable and unchanged from previous earlier this morning.
With ongoing discomfort for more than 2 days, unremarkable EKG and negative troponin yesterday, no indication to repeat laboratory studies.
As patient currently being treated for glaucoma he is to avoid all steroids.
Chronically maintained on Pradaxa thus NSAIDs are contraindicated.
I have suggested a trial of gabapentin for potential neuropathy but patient elects to forego any new medications.
As such recommend he continue with Tylenol and will give a dose now as well as trial of topical lidocaine patch.
Recommend prompt follow-up with PCP for recheck. Could consider physical therapy evaluation and treatment.
Chronic conditions affecting care: Arrhythmia, COPD, Cancer (Remote history of lung cancer 2005. No history of recurrence.) and Other (Glaucoma)
*Pulse Oximetry
SaO2: 99
Oxygen Mode of Delivery: Room air
Patient hypoxic: no
*EKG
Interpreted by ED Provider?: Yes
Comparison EKG: no changes (Unchanged from previous November 19, 2024, earlier this morning)
Rate: normal
Rhythm: sinus
[place]: normal axis
Interval: first degree heart block
QRS Pattern: poor R-wave progression
Ischemia: no ischemia
*Collection Supervisor Interpretation
Rate: normal
Interpretation: normal
Rhythm: sinus
*Critical Care Note
Total Time (30-74mins, 75-104mins- exclusive of procedures): Not Applicable
ED Attending Note
-
Portions of this chart may have been created with voice recognition software.� Occasional wrong word or��sound alike� substitutions may have occurred due to the inherent limitations of voice recognition software.
Discharge Plan
Departure
Patient Disposition: Home (Routine Discharge)
Date of Disposition: 11/20/24
Time of Disposition: 00:05
Patient with high blood pressure during this ER visit?: No
Condition: Good
Discharge Problem:
Left arm pain, Cervical radiculopathy
Instructions: Muscle and Bone Pain (DC), Radiculopathy of the neck and back (including sciatica)
Prescriptions:
No Action
dorzolamide 1 DROP drops
1 drp BOTH EYES TID
dutasteride 0.5 mg Capsule
0.5 mg PO DAILY
dabigatran etexilate [Pradaxa] 150 mg Capsule
150 mg PO BID Qty: 180 5RF
Patient Comments:
03/05/24- on hold due to rectal bleeding
dofetilide 125 mcg Capsule
125 mcg PO Q12 Qty: 180 5RF
Vyzulta 0.024 % Drops
1 drp LEFT EYE HS
diltiazem HCl 180 mg Capsule,Extended Release 24 Hr
180 mg PO DAILY@0300
brimonidine 0.1 % Drops
1 drp OPHTHALMIC (EYE) TID
Referrals:
Jayy Luciano MD [Non-Admitting Privileges, Family Practice] - Call in 1-3 days for appt
UNKNOWN - PT DOES,NOT KNOW [Family Provider]
Interventions
Interventions:
*Risk Screen - Suicide Last Done: 11/19/24 21:06
*General Assessment Last Done: 11/19/24 21:06
*Neglect/Abuse Screening Last Done: 11/19/24 21:06
*ED- Fall Risk Assessment Last Done: 11/19/24 23:01
*ED COVID-19 Vaccine History Last Done: 11/19/24 23:01
ED-Skin Assessment Last Done: 11/19/24 23:03
ED-Peripheral Vascular Assessment Last Done: 11/19/24 23:03
ED-Musculoskeletal Assessment Last Done: 11/19/24 23:03
Discharge Date and Time
Print Language: NEPALI
[2024-11-20] MEDS: TYLENOL 1000 MG PO (00:23)
[2024-11-20] MEDS: LIDOCAINE 4% PATCH 1 PATCH TOPICAL (00:23)
[2024-11-20 00:25] VITALS: BP 140/84
== END 2024-11-20 01:14 | disposition home or self-care (01) ==
LOC: EMR 21:01
PROVIDERS: EMERGENCY PHYSICIAN Emergency Medicine
DX: M54.12 Radiculopathy, cervical region (principal); I48.0 Paroxysmal atrial fibrillation; I10 Essential (primary) hypertension; J44.89 Other specified chronic obstructive pulmonary disease; K58.9 Irritable bowel syndrome, unspecified; N40.0 Benign prostatic hyperplasia without lower urinary tract symptoms; Z79.01 Long term (current) use of anticoagulants; Z82.49 Family history of ischemic heart disease and other diseases of the circulatory system; Z85.118 Personal history of other malignant neoplasm of bronchus and lung; Z87.891 Personal history of nicotine dependence; Z90.2 Acquired absence of lung [part of]
CPT/HCPCS: 93005; 99283

== ENCOUNTER 2024-11-20 13:57 | Emergency (ER) | payer OTHER, SELFPAY ==
[2024-11-20 14:02] VITALS: BP 96/71
[2024-11-20 14:30] LABS: Urine Character Clear (Clear)
[2024-11-20 14:34] LABS: Hematocrit 45.0 % (39.0-52.0); Hemoglobin 15.5 g/dL (13.0-18.0); Mean Corp Hgb Conc. 34.4 g/dL (33.0-37.0); Mean Corpuscular Volume 90.0 fL (80.0-94.0); Nucleated Red Blood Cells % 0 % (-); Platelet Count 681 10^3/uL (130-400); Red Cell Dist. Width 13.4 % (11.5-14.5)
[2024-11-20 14:54] LABS: Troponin I < 0.012 ng/ml
[2024-11-20 15:07] LABS: ALT (SGPT) 20 U/L (0-50); AST (SGOT) 23 U/L (17-59); Albumin 5.2 g/dl (3.5-5.0); Alkaline Phosphatase 77 U/L (38-126); Blood Urea Nitrogen 16 mg/dl (9-20); Calcium 9.6 mg/dl (8.4-10.2); Chloride 102 mmol/L (98-107); Glucose 96 mg/dl (70-99); Potassium 4.6 mmol/L (3.5-5.1); Sodium 134 mmol/L (135-145); Total Protein 8.1 g/dl (6.3-8.2); eGFR > 60.00
[2024-11-20 15:16] LABS: Carbon Dioxide 23 mmol/L (22-30)
--- NOTE | 2024-11-20 16:20 | ED.GENMED ---
History of Present Illness
General
Chief Complaint: Extremity Pain (non-traumatic)
Source: patient
Time Seen by Provider: 11/20/24 15:24
Nursing documentation reviewed up to this point in time: agreed with
History of Present Illness
History of Present Illness:
Mr. Mohinder Brewer is a 78-year-old male with a PMH notable for left thoracotomy in 2005 for lung carcinoma who is presenting for pain at the left anterior, lateral, and posterior chest wall, as well as left upper limb for 1 week that has hindered
his sleeping as well as cooking. He says the pain starts randomly. He pointed to the pain occurring on his left scapula, his left entire chest, his left ulna.
He has been to the ED 2 times in the last few days for the same concern. He returned today due to the pain preventing him from sleep overnight and preparing food, which has led him to not eat for 2 days.
He is unsure if he has gotten the shingles vaccine. He says he has gotten shingles twice and this pain does not feel the same.
He denies trauma to those areas, falling recently, or he denies heavy lifting. He denies chest pain, shortness of breath, diarrhea, upper respiratory symptoms, and urinary symptoms other chronic urinary frequency at night due to BPH
Past History
Past History
ED Past Medical History: Arrthythmia (Atrial fibrillation), Asthma, Cancer (Lung cancer 2005), COPD, GERD (Hiatal hernia), Other (Irritable bowel disease, prostatic hypertrophy, glaucoma) and Other (Bronchiectasis)
ED Past Surgical History: Other (Left lung lobectomy August 2005, hemorrhoidectomy, inguinal hernia repair)
Social History
Tobacco: Former smoker (Quit with lung cancer diagnosis 2005)
Alcohol: None
Drug: None
Personal:
Living: alone
Employment: Employed (Musician)
Family History
Family History: Hypertension
Review of Systems
Review of Systems
All Other Systems: ROS reviewed and negative except as documented in HPI and ROS
Phy Exam
General Physical Exam
General Presentation: no apparent distress
General age: appears stated age
General Skin: warm and dry
General Habitus: elderly (Thin)
General Mental: alert
General Hydration: appears well hydrated
ENT Exam
ENT Exam: EOMI
Eye Exam
Eye Exam: other (Right eye unable to see how any fingers are swelling up; left vision intact)
Cardiovascular Exam
Cardiovascular Exam: irregularly irregular
Heart Sounds: distant
Pulmonary Exam
Pulmonary Exam: lungs clear
Gastrointestinal Exam
Gastrointestinal Exam: normal bowel sounds and other (Left upper quadrant pain to the palpation, Mild suprapubic tenderness)
Musculoskeletal Exam
Musculoskeletal Exam: neck pain (Posterior cervical pain at C7 (chronic)) and other (Tenderness to palpation at the left scapula, left ulna, left anterior chest wall, left lateral chest wall)
Course
Orders/Labs/Results
Orders:
Orders
11/20/24 14:05
EKG [Electrocardiogram (*1)] Urgent
Reason for Study: Fatigue / Weakness
EKG- Treatment ONCE
11/20/24 14:24
Complete Blood Count/With Diff Urgent
Comprehensive Metabolic Panel Urgent
Troponin I Urgent
Urinalysis Reflex To Culture Urgent
Date Specimen was Collected: 11/20/24
Time Specimen was Collected: 14:05
11/20/24 17:26
CT Cervical Spine W/o Iv Contr Urgent
Comment:
Reason For Exam: potential radiculoathy, neck pain at C7
11/20/24 17:40
CT Chest W/o Iv Contrast Urgent
Comment:
Reason For Exam: b/l lung ca s/p L thoracotomy; L chest & LUE pain
11/20/24 17:41
Acetaminophen [Tylenol] 1,000 mg PO NOW STA
Abnormal Lab Results
11/20/24
14:24
Plt Count 681 H 10^3/uL
(130-400)
Absolute Lymphs (auto) 1.0 L 10^3/uL
(1.2-3.4)
Lymphocytes % 11.7 L %
(20.5-51.1)
Eosinophils % 8.4 H %
(0-6)
Sodium 134 L mmol/L
(135-145)
Albumin 5.2 H g/dl
(3.5-5.0)
11/20/24 14:24
11/20/24 14:24
Vital Signs
Initial and Last Documented VS:
Initial Vital Signs
Temp Pulse Resp BP Pulse Ox
97.5 F 67 18 96/71 100
11/20/24 14:02 11/20/24 14:02 11/20/24 14:02 11/20/24 14:02 11/20/24 14:02
Last Documented Vital Signs
Temp Pulse Resp BP Pulse Ox
97.5 F 67 18 170/63 98
11/20/24 14:02 11/20/24 14:02 11/20/24 14:02 11/20/24 18:00 11/20/24 17:01
MDM/Problems Addressed
Differential Diagnosis Includes:
Brachial neuritis
Metastasis or malignancy recurrence
Pathological fractures
Scarring from thoracotomy
Shingles
Spontaneous pneumothorax, given history of COPD
Referred pain from diaphragm, spleen, kidney
Renal stone
Pneumonia
Musculoskeletal: Costochondritis
MDM/Problems Addressed:
CT cervical spine: multilevel severe spinal cord compression, central canal stenosis, and neural foraminal narrowing
CT chest: An 8.6 mm regular nodule in the right lung. Recommend follow up with custodian supervisor and imaging/workup
Tylenol 1000 mg
Prior imaging: Patient states he had a chest CT done in September 2024. Will try to obtain those records. The hospitals were either closed or did not have his had chest CTs.
Chronic conditions affecting care: Arrhythmia (A-fib), COPD, Asthma, Cancer (History of lung cancer) and Other (Glaucoma)
*Pulse Oximetry
SaO2: 100
Patient hypoxic: no
*Critical Care Note
Total Time (30-74mins, 75-104mins- exclusive of procedures): Not Applicable
ED Attending Note
-
Portions of this chart may have been created with voice recognition software.� Occasional wrong word or��sound alike� substitutions may have occurred due to the inherent limitations of voice recognition software.
Discharge Plan
Departure
Patient Disposition: Home (Routine Discharge)
Date of Disposition: 11/20/24
Time of Disposition: 19:59
Patient with high blood pressure during this ER visit?: Yes
Discharge Problem:
Cervical radiculopathy, Pulmonary nodule
Instructions: Multiple pulmonary nodules, Radiculopathy of the neck and back (including sciatica)
Prescriptions:
No Action
dorzolamide 1 DROP drops
1 drp BOTH EYES TID
dutasteride 0.5 mg Capsule
0.5 mg PO DAILY
dabigatran etexilate [Pradaxa] 150 mg Capsule
150 mg PO BID Qty: 180 5RF
Patient Comments:
03/05/24- on hold due to rectal bleeding
dofetilide 125 mcg Capsule
125 mcg PO Q12 Qty: 180 5RF
Vyzulta 0.024 % Drops
1 drp LEFT EYE HS
diltiazem HCl 180 mg Capsule,Extended Release 24 Hr
180 mg PO DAILY@0300
brimonidine 0.1 % Drops
1 drp OPHTHALMIC (EYE) TID
Referrals:
Josr Albarran MD [Family Provider, Internal Medicine]
Activity Restrictions/Additional Instructions:
Mr. Brewer, you came to the ED for left chest, back, and arm pain. You were found to have spinal cord and nerve compression by bone at multiple levels of your neck. Thus, pinched nerves (radiculopathy) is the likely cause of your pain.
You are found to have an irregular nodule and opacity in your right lower lobe, for which you should get follow-up via your primary care doctor or custodian supervisor. Please call them within 1 to 3 days.
Please return if you develop difficulty breathing, hoarse voice, difficulty swallowing, or chest pain. It was a pleasure to be part of your care team
Interventions
Interventions:
*Risk Screen - Suicide Last Done: 11/20/24 14:02
*General Assessment Last Done: 11/20/24 14:02
*Neglect/Abuse Screening Last Done: 11/20/24 14:02
*ED- Fall Risk Assessment Last Done: 11/20/24 14:02
*ED COVID-19 Vaccine History Last Done: 11/20/24 14:02
ED-Skin Assessment Last Done: 11/20/24 16:47
ED-Peripheral Vascular Assessment Last Done: 11/20/24 16:50
ED-Musculoskeletal Assessment Last Done: 11/20/24 16:47
Discharge Date and Time
Print Language: IRISH
[2024-11-20 16:47] VITALS: BMI 18.9
[2024-11-20 16:49] VITALS: BP 166/71
[2024-11-20 17:00] VITALS: BP 160/69
[2024-11-20 18:00] VITALS: BP 170/63
[2024-11-20] MEDS: TYLENOL 1000 MG PO (18:51)
[2024-11-20 19:21] VITALS: BP 168/78
[2024-11-20 19:25] VITALS: BP 141/72
== END 2024-11-20 20:17 | disposition home or self-care (01) ==
LOC: EMR 13:57
PROVIDERS: Emergency Medicine; EMERGENCY PHYSICIAN Emergency Medicine; FAMILY PHYSICIAN Internal Medicine
DX: M54.12 Radiculopathy, cervical region (principal); R91.1 Solitary pulmonary nodule; R07.89 Other chest pain; Z85.118 Personal history of other malignant neoplasm of bronchus and lung; J44.89 Other specified chronic obstructive pulmonary disease; I48.91 Unspecified atrial fibrillation; I25.10 Atherosclerotic heart disease of native coronary artery without angina pectoris; Z87.891 Personal history of nicotine dependence; Z90.2 Acquired absence of lung [part of]
CPT/HCPCS: 99284; 71250; 72125; 80053; 81003; 84484; 85025; 93005

== ENCOUNTER 2024-12-04 00:07 | Emergency (ER) | payer OTHER, SELFPAY ==
[2024-12-04 00:13] VITALS: BP 160/69
--- NOTE | 2024-12-04 00:49 | ED.GENMED ---
History of Present Illness
General
Chief Complaint: Musculo-Skeletal Complaint
Source: patient
Exam Limitations: none
Time Seen by Provider: 12/04/24 00:33
Nursing documentation reviewed up to this point in time: agreed with
History of Present Illness
History of Present Illness:
Note:
CHIEF COMPLAINT(S)
Foot pain and swelling
HISTORY OF PRESENT ILLNESS
The patient is a 78-year-old male with past medical history of lung cancer presenting with a complaint of sudden onset pain in his foot. The patient reported that he was watching TV and fell asleep, upon waking he experienced sharp pain that
disrupted his sleep. He noted localized swelling in the area, which was notably painful. The patient mentioned that the area was swollen and painful for approximately half an hour, and the swelling subsided by the time he arrived for evaluation. He
is completely pain-free. Patient reports that there is a small bump on the earlier that is no longer present. He did not recall any recent trauma, fall, or insect bite that could have led to these symptoms. The patient denied any associated
symptoms such as tingling or pain radiating up the leg, and he noted no current pain with movement. He denies any other symptoms.
PHYSICAL EXAM
General: Patient is well appearing and in no acute distress; non-toxic
Skin: Warm and dry, no rashes or lesions
Head: Normocephalic, atraumatic
Eyes: Sclera non-icteric. EOMs intact.
Cardiac: Regular rate and rhythm, no murmurs
Peripheral Vascular: No lower extremity swelling or edema bilaterally, 2+ DP and PT pulses bilaterally
Pulm: Normal respiratory effort
Musculoskeletal: No tenderness noted over the dorsum of the feet bilaterally. No tenderness palpation of the right lower extremity from the knee down. No tenderness about the ankle joint. No ligament laxity with varus valgus stressing negative
anterior drawer testing. No lower extremity asymmetry. No acute bony tenderness.
Neuro: CN II-XII intact, no focal neurologic deficits.
Psychiatric: Appropriate mood and affect.
PROBLEM LIST
- Acute: Foot pain and swelling, possible soft tissue injury
PLAN
- Obtain X-rays of the foot and ankle to rule out any bony abnormalities or foreign bodies.
- Apply an LOLA wrap for compression to help prevent further swelling.
- Instructed the patient to alert staff if swelling recurs.
DIFFERENTIAL DIAGNOSIS
The Differential Diagnosis includes, in no particular order and is not limited to:
1. Soft tissue injury
2. Bug bite reaction
3. Cellulitis
4. Gout
5. Deep vein thrombosis
6. Foreign body reaction
7. Ankle sprain
8. Plantar fasciitis
9. Fracture
10. Tendonitis
CHART REVIEW
Reviewed ER physician documentation from 11/12/2024 patient seen for left arm pain
Reviewed discharge summary from 04/06/2022 patient seen for acute coronary syndrome and cardiac catheterization with mild obstructive CAD
MDM/DISPOSITION
The patient is a 78-year-old male with past medical history of lung cancer presenting with a complaint of sudden onset pain in his foot. Patient awoke with the foot pain and states that there is a small swollen bump that is not there anymore. He is
currently pain-free. Patient is expressing confusion about what could have caused the pain. On physical exam there are no acute findings. There is no lower extremity swelling or edema bilaterally. No signs of DVT. No concern for compartment
syndrome. No color changes. He has strong distal pulses. He has no tenderness. He has no skin rashes or lesions no erythema. He went for x-rays which were negative for any acute abnormalities. Suspect muscle cramping versus contusion.
Discussed with patient to follow-up with Ortho and continue to monitor his symptoms for changes. Patient stable for discharge.
Past History
Past History
ED Past Medical History: Arrthythmia (Atrial fibrillation), Asthma, Cancer (Lung cancer 2005), COPD, GERD (Hiatal hernia), Other (Irritable bowel disease, prostatic hypertrophy, glaucoma) and Other (Bronchiectasis)
ED Past Surgical History: Other (Left lung lobectomy August 2005, hemorrhoidectomy, inguinal hernia repair)
Social History
Tobacco: Former smoker (Quit with lung cancer diagnosis 2005)
Alcohol: None
Drug: None
Personal:
Living: alone
Employment: Employed (Musician)
Family History
Family History: Hypertension
Review of Systems
Review of Systems
All Other Systems: ROS reviewed and negative except as documented in HPI and ROS
Phy Exam
Physical Exam
Physical Exam:
see hpi
Course
Orders/Labs/Results
Orders:
Orders
12/04/24 01:12
CR Ankle - Right Min 3 Views * Urgent
Reason For Exam: right ankle pain
CR Foot - Right Min 3 Views Urgent
Reason For Exam: right foot pain
Vital Signs
Initial and Last Documented VS:
Initial Vital Signs
Temp Pulse Resp BP Pulse Ox
97.6 F 66 20 160/69 99
12/04/24 00:13 12/04/24 00:13 12/04/24 00:13 12/04/24 00:13 12/04/24 00:13
Last Documented Vital Signs
Temp Pulse Resp BP Pulse Ox
97.6 F 66 20 160/69 99
12/04/24 00:13 12/04/24 00:13 12/04/24 00:13 12/04/24 00:13 12/04/24 00:51
*Pulse Oximetry
SaO2: 99
Oxygen Mode of Delivery: Room air
Patient hypoxic: no
*Critical Care Note
Total Time (30-74mins, 75-104mins- exclusive of procedures): Not Applicable
ED Attending Note
-
Portions of this chart may have been created with voice recognition software.� Occasional wrong word or��sound alike� substitutions may have occurred due to the inherent limitations of voice recognition software.
Discharge Plan
Departure
Patient Disposition: Home (Routine Discharge)
Date of Disposition: 12/04/24
Time of Disposition: 01:58
Patient with high blood pressure during this ER visit?: Yes
Condition: Good
Discharge Problem:
Acute pain of right foot
Instructions: Muscle and Bone Pain (DC), BLOOD PRESSURE
Prescriptions:
No Action
dorzolamide 1 DROP drops
1 drp BOTH EYES TID
dutasteride 0.5 mg Capsule
0.5 mg PO DAILY
dabigatran etexilate [Pradaxa] 150 mg Capsule
150 mg PO BID Qty: 180 5RF
Patient Comments:
03/05/24- on hold due to rectal bleeding
dofetilide 125 mcg Capsule
125 mcg PO Q12 Qty: 180 5RF
Vyzulta 0.024 % Drops
1 drp LEFT EYE HS
diltiazem HCl 180 mg Capsule,Extended Release 24 Hr
180 mg PO DAILY@0300
brimonidine 0.1 % Drops
1 drp OPHTHALMIC (EYE) TID
Referrals:
Norbert Blackwell DPM [Active, Podiatry] - Call in 1-3 days for appt
UNKNOWN - PT DOES,NOT KNOW [Family Provider]
Activity Restrictions/Additional Instructions:
Your x-rays are unremarkable. Please continue to monitor your symptoms. Please keep your ankle elevated at home.
PLEASE RETURN TO THE EMERGENCY DEPARTMENT SHOULD YOU DEVELOP LOSS OF SENSATION IN YOUR LOWER EXTREMITY, INABILITY AMBULATE, SWELLING, REDNESS, FEVERS OR CHILLS, CHEST PAIN, SHORTNESS OF BREATH, OR ANY OTHER SIGNS OR SYMPTOMS WORRISOME TO YOU.
Please follow-up with your primary care provider.
Interventions
Interventions:
*Risk Screen - Suicide Last Done: 12/04/24 00:13
*General Assessment Last Done: 12/04/24 00:13
*Neglect/Abuse Screening Last Done: 12/04/24 00:13
*ED- Fall Risk Assessment Last Done: 12/04/24 00:13
*ED COVID-19 Vaccine History Last Done: 12/04/24 00:13
*Nursing Disposition Last Done: 12/04/24 02:18
ED-Musculoskeletal Assessment Last Done: 12/04/24 01:00
Discharge Date and Time
Discharge Date/Time: 12/04/24 02:19
Print Language: BAHRAINI
== END 2024-12-04 02:19 | disposition home or self-care (01) ==
LOC: EMR 00:07
PROVIDERS: EMERGENCY PHYSICIAN Student in an Organized Health Care Education/Training Program
DX: M79.671 Pain in right foot (principal); I48.91 Unspecified atrial fibrillation; Z85.118 Personal history of other malignant neoplasm of bronchus and lung; Z87.891 Personal history of nicotine dependence
CPT/HCPCS: 99283; 73610; 73630

== ENCOUNTER 2025-01-07 00:09 | Emergency (ER) | payer OTHER, SELFPAY ==
[2025-01-07 00:15] VITALS: BP 168/78
[2025-01-07 00:53] LABS: Hematocrit 40.4 % (39.0-52.0); Hemoglobin 13.5 g/dL (13.0-18.0); Mean Corp Hgb Conc. 33.4 g/dL (33.0-37.0); Mean Corpuscular Volume 92.0 fL (80.0-94.0); Nucleated Red Blood Cells % 0 % (-); Platelet Count 625 10^3/uL (130-400); Red Cell Dist. Width 14.0 % (11.5-14.5)
[2025-01-07 01:07] LABS: ALT (SGPT) 20 U/L (0-50); AST (SGOT) 17 U/L (17-59); Albumin 4.2 g/dl (3.5-5.0); Alkaline Phosphatase 64 U/L (38-126); Blood Urea Nitrogen 22 mg/dl (9-20); Calcium 9.3 mg/dl (8.4-10.2); Carbon Dioxide 26 mmol/L (22-30); Chloride 104 mmol/L (98-107); Glucose 95 mg/dl (70-99); Potassium 4.6 mmol/L (3.5-5.1); Sodium 135 mmol/L (135-145); Total Protein 6.5 g/dl (6.3-8.2); eGFR > 60.00
[2025-01-07 01:16] VITALS: BP 168/69; BMI 19.5
[2025-01-07 01:19] LABS: Troponin I < 0.012 ng/ml
--- NOTE | 2025-01-07 01:24 | EDRN ---
Pt says in the afternoon, his breathing was fast and he was unable to slow it down. Pt used his levalbuterol inhaler and took singulair which did not help. Pt feels fine now and thinks it was anxiety. Pt denies cp, sob, fever/chills/cough.
[2025-01-07] MEDS: DUONEB 3 ML INH (01:49)
[2025-01-07 02:00] VITALS: BP 146/58
--- NOTE | 2025-01-07 02:15 | ED.GENMED ---
History of Present Illness
General
Chief Complaint: Breathing Problem
Time Seen by Provider: 01/07/25 01:10
History of Present Illness
History of Present Illness:
79-year-old male with prior history of lung cancer status post left upper lobe removal, atrial fibrillation, COPD presenting for shortness of breath. Patient reports symptoms started earlier this afternoon. He took his albuterol inhaler without
significant relief. Notes a mild cough. Denies fever. Denies chest pain. Reports that by the time he arrived to the hospital, symptoms resolved. He suspects that anxiety may be contributing to his symptoms. He is being watched for possible
lung nodule as well as spinal nodule. Currently denying any respiratory symptoms. Patient denies any additional acute medical complaints
Past History
Past History
ED Past Medical History: Arrthythmia (Atrial fibrillation), Asthma, Cancer (Lung cancer 2005), COPD, GERD (Hiatal hernia), Other (Irritable bowel disease, prostatic hypertrophy, glaucoma) and Other (Bronchiectasis)
ED Past Surgical History: Other (Left lung lobectomy August 2005, hemorrhoidectomy, inguinal hernia repair)
Social History
Tobacco: Former smoker (Quit with lung cancer diagnosis 2005)
Alcohol: None
Drug: None
Personal:
Living: alone
Employment: Employed (Musician)
Family History
Family History: Hypertension
Phy Exam
Physical Exam
Physical Exam:
General: Well-appearing, no clinical signs of dehydration, nontoxic and in no acute distress
HEENT: protecting airway
Neck: appears supple
CV: Normal heart rate, regular rhythm
Resp: No accessory muscle use, no increased work of breathing, lungs clear to auscultation bilaterally
Abd: No distention
Extremities: No deformities, no swelling
Neuro: alert, no focal neurologic deficit
: deferred
Rectal: deferred
Psych: Normal affect
Skin: Intact
Scores
Heart Failure Risk
Heart Failure Risk Score: Not Applicable
Course
Orders/Labs/Results
Orders:
Orders
01/07/25 00:24
Electrocardiogram (*1) Urgent
Reason for Study: Other
Other Reason for Exam: Respiratory Distress
Cardiac Monitoring- Treatment ONCE
EKG- Treatment ONCE
O2 Therapy [RESP] Urgent
Titrate/Wean O2 to maintain O2 sat greater than (%): 93
Special Instructions: TO MAINTAIN CONTINUOUS O2 SATS >/= 93%
Pulse Ox/cont/shift [RESP] Urgent
Quantity: 1
Special Instructions: continuous pulse ox
01/07/25 00:39
Complete Blood Count/With Diff Urgent
Comprehensive Metabolic Panel Urgent
NT-proBNP Urgent
Troponin I Urgent
01/07/25 01:37
Ipratropium/Albuterol Sulfate [Duoneb] 3 ml INH R NOW ONE
Abnormal Lab Results
01/07/25
00:39
RBC 4.39 L 10^6/uL
(4.70-6.10)
Plt Count 625 H 10^3/uL
(130-400)
Abs Immat Gran (auto) 0.1 H 10^3/uL
(0-0.05)
Absolute Monos (auto) 1.0 H 10^3/uL
(0.1-0.6)
Absolute Eos (auto) 0.8 H 10^3/uL
(0-0.7)
Immature Gran % 1.4 H %
(0-0.5)
Lymphocytes % 14.0 L %
(20.5-51.1)
Monocytes % 11.1 H %
(1.7-9.3)
Eosinophils % 8.6 H %
(0-6)
BUN 22 H mg/dl
(9-20)
01/07/25 00:39
01/07/25 00:39
Vital Signs
Initial and Last Documented VS:
Initial Vital Signs
Temp Pulse Resp BP Pulse Ox
97.2 F 62 26 168/78 100
01/07/25 00:15 01/07/25 00:15 01/07/25 00:15 01/07/25 00:15 01/07/25 00:15
Last Documented Vital Signs
Temp Pulse Resp BP Pulse Ox
97.2 F 65 14 146/58 99
01/07/25 00:15 01/07/25 02:00 01/07/25 02:00 01/07/25 02:00 01/07/25 02:16
MDM/Problems Addressed
MDM/Problems Addressed:
79-year-old male presenting to the emergency department with difficulty breathing. Vital signs on arrival are significant for mild hypertension.
On exam patient is resting comfortably, no acute distress or discomfort. Currently reports that his symptoms have resolved, denies any present respiratory symptoms. No wheezing on exam with lower suspicion for COPD or asthma exacerbation. Patient
afebrile, nontoxic. Notes mild cough. Lower suspicion for pneumonia. Given resolution of symptoms, patient is declining a chest x-ray at this time, which is reasonable. EKG obtained, no arrhythmia or ischemia. Laboratory analysis sent. Will
administer additional DuoNeb treatment
02:20 - On reassessment remains asymptomatic. Patient feels that his symptoms are probably from some underlying anxiety. No concern for any acute respiratory process at this time, no hypoxia or increased work of breathing. Ultimately feel stable
for discharge with outpatient primary care follow-up. Return precautions discussed and patient verbalized understanding
*Pulse Oximetry
SaO2: 99
Oxygen Mode of Delivery: Room air
Patient hypoxic: no
*EKG
Interpreted by ED Provider?: Yes
EKG Intrepretation Date: 01/07/25
EKG Intrepretation Time: 02:25
Interpretation: normal
Comparison EKG: no changes
Heart Rate: 59
Rate: bradycardiac
Rhythm: sinus
[place]: normal axis
Interval: normal interval
QRS Pattern: normal QRS
Ischemia: no ischemia
*Critical Care Note
Total Time (30-74mins, 75-104mins- exclusive of procedures): Not Applicable
ED Attending Note
-
Portions of this chart may have been created with voice recognition software.� Occasional wrong word or��sound alike� substitutions may have occurred due to the inherent limitations of voice recognition software.
Discharge Plan
Departure
Patient Disposition: Home (Routine Discharge)
Date of Disposition: 01/07/25
Time of Disposition: 02:38
Patient with high blood pressure during this ER visit?: No
Condition: Good
Discharge Problem:
Shortness of breath
Instructions: Shortness of Breath (Dyspnea) (DC)
Prescriptions:
No Action
dorzolamide 1 DROP drops
1 drp BOTH EYES TID
dabigatran etexilate [Pradaxa] 150 mg Capsule
150 mg PO BID Qty: 180 5RF
Patient Comments:
03/05/24- on hold due to rectal bleeding
dofetilide 125 mcg Capsule
125 mcg PO Q12 Qty: 180 5RF
diltiazem HCl 180 mg Capsule,Extended Release 24 Hr
180 mg PO DAILY
brimonidine 0.1 % Drops
1 drp LEFT EYE BID
loteprednol etabonate [Lotemax] 0.5 % Drops,Suspension
1 drp LEFT EYE BID
pilocarpine HCl 2 % Drops
1 drp BOTH EYES QID
bromfenac 0.09 % Drops
1 drp LEFT EYE BID
levalbuterol tartrate 45 mcg/actuation Hfa Aerosol Inhaler
1 puff INHALATION PRN PRN (Reason: sob)
Referrals:
Josr Albarran MD [Family Provider, Internal Medicine]
Activity Restrictions/Additional Instructions:
You were seen in the emergency department for shortness of breath
You were found to have reassuring vital signs, laboratory analysis, EKG.
Please follow-up closely with your primary care physician.
Return to the emergency department for any worsening of your symptoms, or any development of chest pain, difficulty breathing, abdominal pain with persistent vomiting and inability to tolerate food or liquid by mouth (concern for dehydration),
weakness, headache or confusion, fever greater than 100.4, or any additional symptoms that are concerning to you.
Thank you for choosing [facility].
Interventions
Interventions:
*Risk Screen - Suicide Last Done: 01/07/25 00:15
*General Assessment Last Done: 01/07/25 00:15
*Neglect/Abuse Screening Last Done: 01/07/25 00:15
*ED- Fall Risk Assessment Last Done: 01/07/25 00:15
ED- Cardiac Assessment Last Done: 01/07/25 01:28
ED- Pulmonary Assessment Last Done: 01/07/25 01:49
Discharge Date and Time
Print Language: TAMAZIGHT
== END 2025-01-07 02:47 | disposition home or self-care (01) ==
LOC: EMR 00:09
PROVIDERS: EMERGENCY PHYSICIAN Student in an Organized Health Care Education/Training Program; FAMILY PHYSICIAN Internal Medicine
DX: R06.02 Shortness of breath (principal); R00.1 Bradycardia, unspecified; I48.91 Unspecified atrial fibrillation; J44.89 Other specified chronic obstructive pulmonary disease; J47.9 Bronchiectasis, uncomplicated; H40.9 Unspecified glaucoma; K52.3 Indeterminate colitis; N40.0 Benign prostatic hyperplasia without lower urinary tract symptoms; K21.9 Gastro-esophageal reflux disease without esophagitis; K44.9 Diaphragmatic hernia without obstruction or gangrene; Z85.118 Personal history of other malignant neoplasm of bronchus and lung; Z90.2 Acquired absence of lung [part of]; Z87.891 Personal history of nicotine dependence; Z82.49 Family history of ischemic heart disease and other diseases of the circulatory system
CPT/HCPCS: 99284; 94640; 80053; 83880; 84484; 85025; 93005

== ENCOUNTER 2025-01-08 04:20 | Emergency (ER) | payer OTHER, SELFPAY ==
[2025-01-08 04:26] VITALS: BP 167/75
[2025-01-08 04:44] VITALS: BMI 19.5
[2025-01-08 05:05] VITALS: BP 162/71
[2025-01-08 06:00] VITALS: BP 148/61
--- NOTE | 2025-01-08 07:20 | ED.GENMED ---
History of Present Illness
General
Chief Complaint: Overdose Unintentional
Source: patient and records
Exam Limitations: none
Time Seen by Provider: 01/08/25 06:57
History of Present Illness
History of Present Illness:
79yoM with a history of atrial fibrillation, coronary artery disease, and COPD presenting for concern for medication overuse. Patient takes Tikosyn 125 mcg and Pradaxa 150 mg BID. He typically takes his medications at 10 AM and 10 PM. He took his
dose last night at the appropriate time. When he tried to take his other morning medication, he accidentally took the Tikosyn and Pradaxa early. So instead of taking it at 10 AM, he took the dose at 4 AM instead. Patient became worried that he
overdosed on the medication and decided to come to the ED. Patient is feeling well at this time and denies complaints. He denies any chest pain, shortness of breath, rectal bleeding, melena. Of note, patient was seen in the ED yesterday for
shortness of breath which was thought to be related to anxiety. He states this has completely resolved and he has not had any recurrent dyspnea since being discharged yesterday.
Past History
Past History
ED Past Medical History: Arrthythmia (Atrial fibrillation), Asthma, Cancer (Lung cancer 2005), COPD, GERD (Hiatal hernia), Other (Irritable bowel disease, prostatic hypertrophy, glaucoma) and Other (Bronchiectasis)
ED Past Surgical History: Other (Left lung lobectomy August 2005, hemorrhoidectomy, inguinal hernia repair)
Social History
Tobacco: Former smoker (Quit with lung cancer diagnosis 2005)
Alcohol: None
Drug: None
Personal:
Living: alone
Employment: Employed (Musician)
Family History
Family History: Hypertension
Phy Exam
General Physical Exam
General Presentation: well appearing and no apparent distress
General Skin: warm and dry
General Habitus: normal
General Mental: alert
ENT Exam
ENT Exam: normocephalic
Cardiovascular Exam
Cardiovascular Exam: regular rate/rhythm
Pulmonary Exam
Pulmonary Exam: lungs clear, no respiratory distress, no rales, no crackles, no rhonchi and no wheezing
Neurological Exam
Neurological Exam: alert
Cory Coma Scale
Eye Opening: Spontaneous
Verbal Response: Oriented
Motor Response: Obeys Commands
GCS Total Score: 15
Skin Exam
Skin Exam: normal color and warm/dry
Psychiatric Exam
Psychiatric Exam: normal mood/affect
Course
Orders/Labs/Results
Orders:
Orders
01/08/25 06:37
Electrocardiogram (*1) Urgent
Reason for Study: QTc Monitoring
EKG- Treatment ONCE
Vital Signs
Initial and Last Documented VS:
Initial Vital Signs
Temp Pulse Resp BP Pulse Ox
97.9 F 67 20 167/75 99
01/08/25 04:26 01/08/25 04:26 01/08/25 04:26 01/08/25 04:26 01/08/25 04:26
Last Documented Vital Signs
Temp Pulse Resp BP Pulse Ox
97.9 F 59 16 148/61 99
01/08/25 04:26 01/08/25 06:15 01/08/25 06:15 01/08/25 06:00 01/08/25 07:21
MDM/Problems Addressed
Differential Diagnosis Includes:
79yoM presenting for concern for medication overdose. He accidentally took his Tikosyn and Pradaxa dose at 4am instead of 10am. No complaints at this time. VSS. HR in the 60s on initial exam. EKG obtained which shows sinus bradycardia with HR of 57.
Intervals normal and there is no evidence of heart block. Patient provided with reassurance. He was advised to resume his 10pm evening dosing as usual. Patient discharged in stable condition.
*Pulse Oximetry
SaO2: 99
Oxygen Mode of Delivery: Room air
Patient hypoxic: no (99%)
*EKG
Interpreted by ED Provider?: Yes
EKG Intrepretation Date: 01/08/25
Heart Rate: 57
Rate: bradycardiac
Rhythm: sinus
[place]: normal axis
Interval: normal interval
Ischemia: no ischemia
*Critical Care Note
Total Time (30-74mins, 75-104mins- exclusive of procedures): Not Applicable
ED Attending Note
-
Portions of this chart may have been created with voice recognition software.� Occasional wrong word or��sound alike� substitutions may have occurred due to the inherent limitations of voice recognition software.
Discharge Plan
Departure
Patient Disposition: Home (Routine Discharge)
Date of Disposition: 01/08/25
Time of Disposition: 07:23
Patient with high blood pressure during this ER visit?: Yes
Discharge Problem:
Unintentional misuse of medication
Instructions: Dofetilide
Prescriptions:
No Action
dorzolamide 1 DROP drops
1 drp BOTH EYES TID
dabigatran etexilate [Pradaxa] 150 mg Capsule
150 mg PO BID Qty: 180 5RF
Patient Comments:
03/05/24- on hold due to rectal bleeding
dofetilide 125 mcg Capsule
125 mcg PO Q12 Qty: 180 5RF
diltiazem HCl 180 mg Capsule,Extended Release 24 Hr
180 mg PO DAILY
brimonidine 0.1 % Drops
1 drp LEFT EYE BID
loteprednol etabonate [Lotemax] 0.5 % Drops,Suspension
1 drp LEFT EYE BID
pilocarpine HCl 2 % Drops
1 drp BOTH EYES QID
bromfenac 0.09 % Drops
1 drp LEFT EYE BID
levalbuterol tartrate 45 mcg/actuation Hfa Aerosol Inhaler
1 puff INHALATION PRN PRN (Reason: sob)
Referrals:
Avis,Josr, MD [Family Provider, Internal Medicine]
Activity Restrictions/Additional Instructions:
Take your next dose of Tikosyn and Pradaxa at 10 PM tonight and resume your normal medication regimen after this.
Interventions
Interventions:
*Risk Screen - Suicide Last Done: 01/08/25 04:26
*General Assessment Last Done: 01/08/25 04:26
*Neglect/Abuse Screening Last Done: 01/08/25 04:26
*ED- Fall Risk Assessment Last Done: 01/08/25 04:26
*ED COVID-19 Vaccine History Last Done: 01/08/25 04:26
*Nursing Disposition Last Done: 01/08/25 07:49
ED- Cardiac Assessment Last Done: 01/08/25 05:16
ED- Neurological Assessment Last Done: 01/08/25 04:57
ED- Pulmonary Assessment Last Done: 01/08/25 04:57
Discharge Date and Time
Discharge Date/Time: 01/08/25 07:52
Print Language: HUNGARIAN
== END 2025-01-08 07:52 | disposition home or self-care (01) ==
LOC: EMR 04:20
PROVIDERS: EMERGENCY PHYSICIAN Emergency Medicine; FAMILY PHYSICIAN Internal Medicine
DX: T65.891A Toxic effect of other specified substances, accidental (unintentional), initial encounter (principal); R00.1 Bradycardia, unspecified; I48.91 Unspecified atrial fibrillation; I25.10 Atherosclerotic heart disease of native coronary artery without angina pectoris; J44.89 Other specified chronic obstructive pulmonary disease; Z79.01 Long term (current) use of anticoagulants; Z87.891 Personal history of nicotine dependence; Z85.118 Personal history of other malignant neoplasm of bronchus and lung
CPT/HCPCS: 99283; 93005

== ENCOUNTER → 2025-01-10 07:30 | Outpatient (REF) | payer OTHER, SELFPAY | LOC: HWRCS 07:30 | PROVIDERS: ATTENDING PHYSICIAN Nurse Practitioner Gerontology; FAMILY PHYSICIAN Internal Medicine | DX: R07.9 Chest pain, unspecified (principal); I25.10 Atherosclerotic heart disease of native coronary artery without angina pectoris | CPT/HCPCS: 78452; 93017; A9500; J2785 ==

== ENCOUNTER 2025-01-16 02:31 | Emergency (ER) | payer OTHER, SELFPAY ==
[2025-01-16 02:42] VITALS: BP 160/72
--- NOTE | 2025-01-16 02:56 | EDRN ---
Pt says he came to the ED because of trouble breathing. Pt fell asleep in his car in the parking lot of the ED. 'that was amazing, I woke up felt better and turned around to go home and just didn't feel well' so pt returned. Pt says it came after
a coughing spell. Pt denies sob now. no fever/chills, ill contacts. Pt feels a tightness 'muscular discomfort from coughing, not pain.'
[2025-01-16 02:58] VITALS: BMI 19.5
[2025-01-16 03:03] VITALS: BP 150/66
[2025-01-16 04:00] VITALS: BP 156/69
--- NOTE | 2025-01-16 04:34 | ED.GENMED ---
History of Present Illness
General
Chief Complaint: Anxiety
Source: patient and previous hospital records (ED visit for very similar complaint January 07. Unremarkable ED workup.)
Exam Limitations: none
Time Seen by Provider: 01/16/25 03:26
Nursing documentation reviewed up to this point in time: agreed with
History of Present Illness
History of Present Illness:
The patient is an 79-year-old male with a history of chronic obstructive pulmonary disease (COPD), lung cancer status post left upper lobe resection, A-fib, glaucoma, anxiety, who presented with symptoms of shortness of breath and a severe coughing
episode. The patient stated, 'I was more or less resting tonight and got into a situation of coughing a lot,' which lasted about 15 minutes and was partially relieved by the use of his inhaler. He mentioned that he went to sleep around 10 PM and was
woken up by a sensation of not being able to breathe, as if on the verge of coughing, but the cough didn't manifest. The patient used his inhaler again, which did not provide significant relief. He denied having a prior history of obstructive sleep
apnea and does not use a continuous positive airway pressure (CPAP) machine. The patient reported nasal congestion, describing it as typical for this season, indicating a fall allergy period. He mentioned being seen a few days prior for similar
shortness of breath, with blood work conducted. No fever was reported. He has driven himself to the ED and, as he was feeling improved, contemplated driving back home but then found that he had fallen asleep in his car for approximately an hour.
He awoke, again asymptomatic but decided to check into the ED. He does admit to moderate anxiety and admits that he worries regarding ongoing workup for thrombocytosis as well as workup for a right upper lobe nodule as well as a 'spot' on L1
vertebral body which was found on a CT in November. He did undergo a PET scan at [facility]. He is unsure as to the results but admits that he was recommended to have a bone biopsy of L1 and this was scheduled but patient canceled the procedure due
to his blood pressure being elevated. Since canceling the procedure he was recommended to undergo an MRI of his lumbar spine. He has not scheduled this as yet.
He has been following with Dr. Padilla regarding thrombocytosis. He states his platelet count has been elevated to 700,000. Monitoring includes CBCs every other month.
Recent ED visit records reviewed. CBC from 1 week ago reveals platelet count of 625, improved from November.
Past History
Past History
ED Past Medical History: Arrthythmia (Atrial fibrillation), Asthma, Cancer (Lung cancer 2005), COPD, GERD (Hiatal hernia), Other (Irritable bowel disease, prostatic hypertrophy, glaucoma) and Other (Bronchiectasis)
ED Past Surgical History: Other (Left lung lobectomy August 2005, hemorrhoidectomy, inguinal hernia repair)
Social History
Tobacco: Former smoker (Quit with lung cancer diagnosis 2005)
Alcohol: None
Drug: None
Personal:
Living: alone
Employment: Employed (Musician)
Family History
Family History: Hypertension
Phy Exam
Physical Exam
Physical Exam:
GENERAL: 79-year-old gentleman appears his stated age, awake and alert, pleasant, quite chatty and overall appears in no acute distress. Mildly nasal, stuffy voice. No respiratory distress. No cough.
EYE: anicteric
NECK: Supple, nontender, no meningismus, no significant adenopathy.
ENT: posterior pharynx is clear, oral mucosa is moist. TM clear b/l, significantly boggy pale blue turbinates without rhinorrhea.
CARDIAC: Regular rate and rhythm. no murmur.
LUNGS: Clear breath sounds bilaterally, no acute respiratory distress, no wheezes/rales/rhonchi
ABDOMEN: Soft, nondistended, without focal tenderness, normoactive BS.
NEUROLOGICAL: Alert and oriented x3, no focal neuro deficits. Gait is steady.
SKIN: Warm and dry, normal color, skin intact. No rash.
MUSCULOSKELETAL: No C/C/E. peripheral pulses are full and equal b/l. No palpable tenderness.
PSYCH: Normal and appropriate interaction.
Course
Vital Signs
Initial and Last Documented VS:
Initial Vital Signs
Temp Pulse Resp BP Pulse Ox
98 F 68 20 160/72 96
01/16/25 02:42 01/16/25 02:42 01/16/25 02:42 01/16/25 02:42 01/16/25 02:42
Last Documented Vital Signs
Temp Pulse Resp BP Pulse Ox
98 F 66 14 156/69 100
01/16/25 02:42 01/16/25 04:00 01/16/25 04:00 01/16/25 04:00 01/16/25 04:40
MDM/Problems Addressed
Differential Diagnosis Includes:
The Differential Diagnosis includes, in no particular order and is not limited to:
1. COPD exacerbation.
2. Allergic rhinitis.
3. Asthma.
4. Anxiety-related dyspnea.
5. Pneumonia.
6. Pulmonary embolism.
7. Heart failure.
8. Obstructive sleep apnea.
9. Upper respiratory infection.
10. Interstitial lung disease.
MDM/Problems Addressed:
Isolated episode of cough tonight.
Intermittent shortness of breath, promptly resolved with inhaler.
Significant anxiety/worry regarding recent CAT scan and PET scan findings, ongoing workup for pulmonary nodule, lumbar spine lesion, thrombocytosis.
Lengthy review of multiple recent ED visits, recent laboratory studies as well as imaging.
Thrombocytosis is overall improving.
Unremarkable cardiac workup on several ED visits including most recently January 07 with negative troponins. Patient also mentions that he has undergone a recent unremarkable nuclear stress test.
BNP low at 300, 1-week ago. No prior history of CHF and reassuring that lungs are clear to auscultation.
I have offered a chest x-ray which patient declines as he has had multiple imaging in the past. I do agree that at this point, as patient is asymptomatic and lungs are clear, no recent fever, no definitive concern for pneumonia on exam.
He does admit to significant anxiety and admits that anxiety and panic issues tend to worsen his symptoms.
Overall feeling improved. Asymptomatic since arrival to the ED and agreeable to discharge home to continue follow-up with his multiple specialist.
There is a significant element of allergic rhinitis on exam and I recommend he resume Astelin nasal spray. Allergic rhinitis could certainly be playing a part with intermittent shortness of breath and isolated episode of cough.
He tends to avoid steroid nasal sprays due to glaucoma but Astelin/antihistamine nasal spray is safe to use with glaucoma.
Chronic conditions affecting care: CAD, COPD, Psychiatric illness and Cancer
Acute Exacerbation and/or Progression of Chronic Illness: COPD and Psychiatric illness
*Pulse Oximetry
SaO2: 100
Oxygen Mode of Delivery: Room air
Patient hypoxic: no
*Critical Care Note
Total Time (30-74mins, 75-104mins- exclusive of procedures): Not Applicable
ED Attending Note
-
Portions of this chart may have been created with voice recognition software.� Occasional wrong word or��sound alike� substitutions may have occurred due to the inherent limitations of voice recognition software.
Discharge Plan
Departure
Patient Disposition: Home (Routine Discharge)
Date of Disposition: 01/16/25
Time of Disposition: 04:34
Patient with high blood pressure during this ER visit?: No
Condition: Good
Discharge Problem:
episodic shortness of breath, Allergic rhinitis, COPD with asthma, Anxiety
Instructions: Chronic obstructive pulmonary disease (COPD), Anxiety, Adult (DC), Breathing exercises
Prescriptions:
No Action
dorzolamide 1 DROP drops
1 drp BOTH EYES TID
dabigatran etexilate [Pradaxa] 150 mg Capsule
150 mg PO BID Qty: 180 5RF
dofetilide 125 mcg Capsule
125 mcg PO Q12 Qty: 180 5RF
diltiazem HCl 180 mg Capsule,Extended Release 24 Hr
180 mg PO DAILY
brimonidine 0.1 % Drops
1 drp LEFT EYE BID
loteprednol etabonate [Lotemax] 0.5 % Drops,Suspension
1 drp LEFT EYE BID
pilocarpine HCl 2 % Drops
1 drp BOTH EYES QID
bromfenac 0.09 % Drops
1 drp LEFT EYE BID
levalbuterol tartrate 45 mcg/actuation Hfa Aerosol Inhaler
1 puff INHALATION PRN PRN (Reason: sob)
Referrals:
Josr Albarran MD [Family Provider, Internal Medicine] - Call in 1-3 days for appt
Santosh Light MD [Active, Pulmonary Medicine] - Call in 1-3 days for appt
Interventions
Interventions:
*Risk Screen - Suicide Last Done: 01/16/25 02:42
*General Assessment Last Done: 01/16/25 02:58
*Neglect/Abuse Screening Last Done: 01/16/25 02:42
*ED- Fall Risk Assessment Last Done: 01/16/25 02:58
*Nursing Disposition Last Done: 01/16/25 04:51
Discharge Date and Time
Discharge Date/Time: 01/16/25 04:51
Print Language: MAURITANIAN
--- NOTE | 2025-01-16 04:45 | EDRN ---
Pt expressed concern about whether he took his nighttime dose of pradaxa and tikosyn. Pt puts his medications in a pill box for morning and nighttime. Told pt to check his box when he goes home to see if Thursday night's container is empty. Pt said
that might be a problem because he filled the pill box. Discussed strategy to ensure this does not happen again. Pt was in this ED about 1 week ago for taking an extra dose of both because he forgot he took the first dose. Pt instructed to skip
last night's dose if he determines he did not take them and to take his next scheduled dose at 1000.
== END 2025-01-16 04:51 | disposition home or self-care (01) ==
LOC: EMR 02:31
PROVIDERS: EMERGENCY PHYSICIAN Emergency Medicine; FAMILY PHYSICIAN Internal Medicine
DX: R06.02 Shortness of breath (principal); J30.9 Allergic rhinitis, unspecified; J44.89 Other specified chronic obstructive pulmonary disease; F41.9 Anxiety disorder, unspecified; Z87.891 Personal history of nicotine dependence; I48.91 Unspecified atrial fibrillation; I25.10 Atherosclerotic heart disease of native coronary artery without angina pectoris; Z85.118 Personal history of other malignant neoplasm of bronchus and lung; H40.9 Unspecified glaucoma; D75.839 Thrombocytosis, unspecified
CPT/HCPCS: 99282

== ENCOUNTER 2025-01-29 00:17 | Emergency (ER) | payer OTHER, SELFPAY ==
[2025-01-29] VITALS (9 sets, daily range): BP systolic 147–178; BP diastolic 60–91; PULSE 73–85; BMI 19.5
[2025-01-29 01:13] LABS: Hematocrit 41.7 % (39.0-52.0); Hemoglobin 13.8 g/dL (13.0-18.0); Mean Corp Hgb Conc. 33.1 g/dL (33.0-37.0); Mean Corpuscular Volume 91.6 fL (80.0-94.0); Nucleated Red Blood Cells % 0 % (-); Platelet Count 629 10^3/uL (130-400); Red Cell Dist. Width 13.9 % (11.5-14.5)
[2025-01-29 01:28] LABS: ALT (SGPT) 22 U/L (0-50); AST (SGOT) 21 U/L (17-59); Albumin 4.2 g/dl (3.5-5.0); Alkaline Phosphatase 64 U/L (38-126); Blood Urea Nitrogen 27 mg/dl (9-20); Calcium 9.3 mg/dl (8.4-10.2); Carbon Dioxide 24 mmol/L (22-30); Chloride 106 mmol/L (98-107); Glucose 91 mg/dl (70-99); Potassium 4.9 mmol/L (3.5-5.1); Sodium 137 mmol/L (135-145); Total Protein 6.7 g/dl (6.3-8.2); eGFR 50.81
[2025-01-29 01:47] LABS: Troponin I < 0.012 ng/ml
--- NOTE | 2025-01-29 06:32 | ED.GENMED ---
History of Present Illness
General
Chief Complaint: Dizziness
Source: patient
Exam Limitations: none
Time Seen by Provider: 01/29/25 06:31
Nursing documentation reviewed up to this point in time: agreed with
History of Present Illness
History of Present Illness:
The patient is a very pleasant 79-year-old man who has a history of atrial fibrillation and presents with 2 weeks of lightheadedness. Patient reports it does not feel like vertigo, rather it feels as though he is going to pass out. Patient denies
any concerning chest pain or shortness of breath. He denies fevers and chills. He denies nausea, vomiting and diarrhea. He admits at times he does not drink enough water. Patient reports his symptoms are better when he sits still and is worse
when he gets up and walks around.
Past History
Past History
ED Past Medical History: Arrthythmia (Atrial fibrillation), Asthma, Cancer (Lung cancer 2005), COPD, GERD (Hiatal hernia), Other (Irritable bowel disease, prostatic hypertrophy, glaucoma) and Other (Bronchiectasis)
ED Past Surgical History: Other (Left lung lobectomy August 2005, hemorrhoidectomy, inguinal hernia repair)
Social History
Tobacco: Former smoker (Quit with lung cancer diagnosis 2005)
Alcohol: None
Drug: None
Personal:
Living: alone
Employment: Employed (Musician)
Family History
Family History: Hypertension
Review of Systems
Review of Systems
Allergies reviewed?: Yes
All Other Systems: ROS reviewed and negative except as documented in HPI and ROS
Constitutional: Reports fatigue
EENT: Reports no symptoms
Respiratory: Reports no symptoms
Cardiac: Reports other (Lightheadedness)
ABD/GI: Reports no symptoms
: Reports no symptoms
Musculoskeletal: Reports no symptoms
Skin: Reports no symptoms
Neurological: Reports no symptoms
Endocrine: Reports no symptoms
Hematologic/Lymphatic: Reports no symptoms
Psychiatric: Reports no symptoms
Phy Exam
Physical Exam
Physical Exam:
General: Patient appears to be resting comfortably, appears well and comfortable
HEENT: Extraocular muscles intact
Neck: Supple
Cardiovascular: Regular rate and rhythm
Lungs: Clear. No crackles or wheezing
Abdomen: Soft and nontender throughout
Skin: No rash
Psychiatric: Calm, cooperative
Extremities: No calf tenderness, no edema
Neuro: Extraocular muscles intact, 5 out of 5 strength in all extremities without drift. Normal [id number]
Course
Orders/Labs/Results
Orders:
Orders
01/29/25 00:41
EKG [Electrocardiogram (*1)] Urgent
Reason for Study: Chest Pain
Other Reason for Exam: pt complains of tightness in chest
EKG- Treatment ONCE
01/29/25 00:49
Complete Blood Count/With Diff Urgent
Troponin I Urgent
01/29/25 00:50
Comprehensive Metabolic Panel Urgent
01/29/25 06:43
Orthostatic VS- Treatment ONCE
Abnormal Lab Results
01/29/25 01/29/25
00:49 00:50
RBC 4.55 L 10^6/uL
(4.70-6.10)
Plt Count 629 H 10^3/uL
(130-400)
Absolute Monos (auto) 0.8 H 10^3/uL
(0.1-0.6)
Absolute Eos (auto) 0.9 H 10^3/uL
(0-0.7)
Lymphocytes % 13.0 L %
(20.5-51.1)
Eosinophils % 9.8 H %
(0-6)
BUN 27 H mg/dl
(9-20)
Creatinine 1.4 H mg/dL
(0.7-1.3)
01/29/25 00:49
01/29/25 00:50
Vital Signs
Initial and Last Documented VS:
Initial Vital Signs
Temp Pulse Resp BP Pulse Ox
97.8 F 66 14 178/73 100
01/29/25 00:29 01/29/25 00:29 01/29/25 00:29 01/29/25 00:29 01/29/25 00:29
Last Documented Vital Signs
Temp Pulse Resp BP Pulse Ox
97.8 F 69 15 150/76 100
01/29/25 00:29 01/29/25 06:53 01/29/25 06:53 01/29/25 06:53 01/29/25 06:53
MDM/Problems Addressed
Differential Diagnosis Includes:
Acute dehydration, cardiac arrhythmia, acute hyponatremia
MDM/Problems Addressed:
Patient presents with 2 weeks of subacute lightheadedness
Chronic conditions affecting care: Arrhythmia
Acute Exacerbation and/or Progression of Chronic Illness:
Patient is in a normal sinus rhythm. I do not see exacerbation of an arrhythmia such as A-fib
Acute Exacerbation and/or Progression of Chronic Illness: Arrhythmia
*Pulse Oximetry
SaO2: 100
Oxygen Mode of Delivery: Room air
Patient hypoxic: no
Comment: 100% on RA
*EKG
Interpreted by ED Provider?: Yes
Interpretation: abnormal
Comparison EKG: no changes
Rate: bradycardiac
Rhythm: sinus
Sonoita: normal axis
Interval: first degree heart block
QRS Pattern: left vent hypertrophy
Ischemia: non-specific ST changes
*Sandwich Artist Interpretation
Rate: normal
Interpretation: normal
Rhythm: sinus
*Critical Care Note
Total Time (30-74mins, 75-104mins- exclusive of procedures): Not Applicable
Data Reviewed
Review of Other/Old Records Reveals: Testing (Recent cardiac stress test with Dr. Davis and reviewed by me. Shows no ischemia or arrhythmias)
Source: patient
Patient Management
Social determinants of health affecting care: Living situation and Strong social support
Update Note
Update Note:
Orthostatic show no significant changes with sitting and standing. Patient is drinking fluids on his own. Patient will be encouraged to keep himself well-hydrated. Patient shows no electrolyte abnormality on blood work nor does he show any
cardiac arrhythmia on a heart monitor. He has been on a heart monitor in the ED for many hours and it shows sinus rhythm. He is not anemic. His EKG appears unchanged. Patient will be encouraged to follow-up with his doctor within 1 week to have
his vital signs rechecked.
ED Attending Note
-
Portions of this chart may have been created with voice recognition software.� Occasional wrong word or��sound alike� substitutions may have occurred due to the inherent limitations of voice recognition software.
Discharge Plan
Departure
Patient Disposition: Home (Routine Discharge)
Date of Disposition: 01/29/25
Time of Disposition: 07:20
Patient with high blood pressure during this ER visit?: Yes
Condition: Good
Covid-19: Not Applicable
Discharge Problem:
Light-headedness
Instructions: Dizziness in adults - ED (DC), BLOOD PRESSURE
Prescriptions:
No Action
dorzolamide 1 DROP drops
1 drp BOTH EYES TID
dabigatran etexilate [Pradaxa] 150 mg Capsule
150 mg PO BID Qty: 180 5RF
dofetilide 125 mcg Capsule
125 mcg PO Q12 Qty: 180 5RF
diltiazem HCl 180 mg Capsule,Extended Release 24 Hr
180 mg PO DAILY
brimonidine 0.1 % Drops
1 drp LEFT EYE BID
bromfenac 0.09 % Drops
1 drp LEFT EYE BID
levalbuterol tartrate 45 mcg/actuation Hfa Aerosol Inhaler
1 puff INHALATION PRN PRN (Reason: sob)
loteprednol etabonate 0.5 % Drops,Suspension
1 drp LEFT EYE DAILY
Eye Drop Replaced Pilocarpine
1 drp BOTH EYES BID
Patient Comments:
pt does not know name of drops
Referrals:
Josr Albarran MD [Family Provider, Internal Medicine]
Activity Restrictions/Additional Instructions:
Drink lots of fluids to make sure you are well-hydrated. Call and follow-up with your primary care doctor within 1 week.
Interventions
Interventions:
*Risk Screen - Suicide Last Done: 01/29/25 00:29
*General Assessment Last Done: 01/29/25 00:29
*Neglect/Abuse Screening Last Done: 01/29/25 00:29
*ED- Fall Risk Assessment Last Done: 01/29/25 03:39
*ED COVID-19 Vaccine History Last Done: 01/29/25 03:39
ED- Neurological Assessment Last Done: 01/29/25 03:47
ED- Cardiac Assessment Last Done: 01/29/25 03:47
ED Swallowing Screen Last Done: 01/29/25 03:47
Discharge Date and Time
Print Language: KAZAKH
== END 2025-01-29 07:26 | disposition home or self-care (01) ==
LOC: EMR 00:17
PROVIDERS: Student in an Organized Health Care Education/Training Program; EMERGENCY PHYSICIAN Emergency Medicine; FAMILY PHYSICIAN Internal Medicine
DX: R42 Dizziness and giddiness (principal); R03.0 Elevated blood-pressure reading, without diagnosis of hypertension; I44.0 Atrioventricular block, first degree; I51.7 Cardiomegaly; I48.91 Unspecified atrial fibrillation; J44.89 Other specified chronic obstructive pulmonary disease; J47.9 Bronchiectasis, uncomplicated; H40.9 Unspecified glaucoma; K21.9 Gastro-esophageal reflux disease without esophagitis; K44.9 Diaphragmatic hernia without obstruction or gangrene; K58.9 Irritable bowel syndrome, unspecified; N40.0 Benign prostatic hyperplasia without lower urinary tract symptoms; Z85.118 Personal history of other malignant neoplasm of bronchus and lung; Z90.2 Acquired absence of lung [part of]; Z87.891 Personal history of nicotine dependence; Z82.49 Family history of ischemic heart disease and other diseases of the circulatory system
CPT/HCPCS: 99284; 80053; 84484; 85025; 93005

== ENCOUNTER 2025-01-31 02:53 | Emergency (ER) | payer OTHER, SELFPAY ==
[2025-01-31 02:56] VITALS: BP 176/94
--- NOTE | 2025-01-31 03:30 | ED.GENMED ---
History of Present Illness
<Pura Mullen PA-C - Last Filed: 01/31/25 09:25>
General
Chief Complaint: Heart Rate Problem
Source: patient
Exam Limitations: none
Time Seen by Provider: 01/31/25 03:07
Nursing documentation reviewed up to this point in time: agreed with
History of Present Illness
History of Present Illness:
The patient is an 79-year-old male with a hx of afib, GERD, lung cancer who presents with palpitations and lightheadedness, accompanied by episodes of elevated blood pressure. The patient described palpitations that awaken him from sleep, which
occur in waves and last approximately 20-25 minutes. On one occasion, while in the car outside the ER, he noted a blood pressure reading of 172/65. The patient experiences these palpitations predominantly in the afternoon and did mention
intermittent shortness of breath, initially perceived as asthma, for which he uses a rescue inhaler which did improve his symptoms. There is no current chest pain, although the patient reported some back pain, which is now resolved.The patient has a
history of atrial fibrillation but states that his recent palpitations do not feel like atrial fibrillation episodes. He did not take his evening dose of diltiazem today. A recent consultation with his cad engineer resulted in plans for new
antihypertensive medications, but due to lactose allergies, he was unable to start them. The patient recently underwent a PET scan which detected two nodules in the lungs and a suspicious area in the lower spine. He is scheduled for an MRI on October "" to further evaluate these findings. He is concerned about undergoing additional imaging due to extensive previous exposure to radiation. He denies chest pain today and reports that the lightheadedness has been going on for multiple months.
Past History
<Pura Mullen PA-C - Last Filed: 01/31/25 09:25>
Past History
ED Past Medical History: Arrthythmia (Atrial fibrillation), Asthma, Cancer (Lung cancer 2005), COPD, GERD (Hiatal hernia), Other (Irritable bowel disease, prostatic hypertrophy, glaucoma) and Other (Bronchiectasis)
ED Past Surgical History: Other (Left lung lobectomy August 2005, hemorrhoidectomy, inguinal hernia repair)
Social History
Tobacco: Former smoker (Quit with lung cancer diagnosis 2005)
Alcohol: None
Drug: None
Personal:
Living: alone
Employment: Employed (Musician)
Family History
Family History: Hypertension
Review of Systems
<Pura Mullen PA-C - Last Filed: 01/31/25 09:25>
Review of Systems
All Other Systems: ROS reviewed and negative except as documented in HPI and ROS
Phy Exam
<LUIS Marquis Last Filed: 01/31/25 09:25>
General Physical Exam
General Presentation: well appearing and no apparent distress
General age: appears stated age
General Skin: warm and dry
General Habitus: normal
General Hydration: appears well hydrated
ENT Exam
ENT Exam: EOMI and normocephalic
Eye Exam
Eye Exam: PERRL and EOMI
Cardiovascular Exam
Cardiovascular Exam: regular rate/rhythm, no edema and no murmur
Pulmonary Exam
Pulmonary Exam: lungs clear, no respiratory distress, no crackles, no rhonchi and no wheezing
Gastrointestinal Exam
Gastrointestinal Exam: soft and non distended
Neurological Exam
Neurological Exam: alert, oriented x3, CN II-XII intact and no sensory deficits
Skin Exam
Skin Exam: normal color and warm/dry
Psychiatric Exam
Psychiatric Exam: normal mood/affect
Course
<Pura Mullen PA-C - Last Filed: 01/31/25 09:25>
Orders/Labs/Results
Orders:
Orders
01/31/25 03:05
EKG [Electrocardiogram (*1)] Urgent
Reason for Study: Palpitations
EKG- Treatment ONCE
01/31/25 03:30
Cardiac Monitoring- Treatment ONCE
EKG- Treatment ONCE
01/31/25 03:34
Complete Blood Count/With Diff Urgent
Comprehensive Metabolic Panel Urgent
NT-proBNP Urgent
Troponin I Urgent
01/31/25 05:40
Sodium Zirconium Cyclosilicate [Lokelma] 10 gram PO NOW STA
Abnormal Lab Results
01/31/25
03:34
RBC 4.46 L 10^6/uL
(4.70-6.10)
Plt Count 669 H 10^3/uL
(130-400)
Absolute Lymphs (auto) 1.1 L 10^3/uL
(1.2-3.4)
Absolute Monos (auto) 0.7 H 10^3/uL
(0.1-0.6)
Absolute Eos (auto) 0.8 H 10^3/uL
(0-0.7)
Lymphocytes % 12.7 L %
(20.5-51.1)
Eosinophils % 9.5 H %
(0-6)
Potassium 5.5 H mmol/L
(3.5-5.1)
BUN 22 H mg/dl
(9-20)
01/31/25 03:34
01/31/25 03:34
Vital Signs
Initial and Last Documented VS:
Initial Vital Signs
Temp Pulse Resp BP Pulse Ox
97.7 F 65 16 176/94 100
01/31/25 02:56 01/31/25 02:56 01/31/25 02:56 01/31/25 02:56 01/31/25 02:56
Last Documented Vital Signs
Temp Pulse Resp BP Pulse Ox
97.7 F 66 18 151/55 98
01/31/25 02:56 01/31/25 06:00 01/31/25 06:00 01/31/25 06:00 01/31/25 06:00
<Jerry Sharp DO Ozzy - Last Filed: 01/31/25 03:50>
Orders/Labs/Results
Orders:
Orders
01/31/25 03:05
EKG [Electrocardiogram (*1)] Urgent
Reason for Study: Palpitations
EKG- Treatment ONCE
01/31/25 03:30
Cardiac Monitoring- Treatment ONCE
EKG- Treatment ONCE
01/31/25 03:34
Complete Blood Count/With Diff Urgent
Comprehensive Metabolic Panel Urgent
NT-proBNP Urgent
Troponin I Urgent
01/31/25 05:40
Sodium Zirconium Cyclosilicate [Lokelma] 10 gram PO NOW STA
Abnormal Lab Results
01/31/25
03:34
RBC 4.46 L 10^6/uL
(4.70-6.10)
Plt Count 669 H 10^3/uL
(130-400)
Absolute Lymphs (auto) 1.1 L 10^3/uL
(1.2-3.4)
Absolute Monos (auto) 0.7 H 10^3/uL
(0.1-0.6)
Absolute Eos (auto) 0.8 H 10^3/uL
(0-0.7)
Lymphocytes % 12.7 L %
(20.5-51.1)
Eosinophils % 9.5 H %
(0-6)
Potassium 5.5 H mmol/L
(3.5-5.1)
BUN 22 H mg/dl
(9-20)
01/31/25 03:34
01/31/25 03:34
Vital Signs
Initial and Last Documented VS:
Initial Vital Signs
Temp Pulse Resp BP Pulse Ox
97.7 F 65 16 176/94 100
01/31/25 02:56 01/31/25 02:56 01/31/25 02:56 01/31/25 02:56 01/31/25 02:56
Last Documented Vital Signs
Temp Pulse Resp BP Pulse Ox
97.7 F 66 18 151/55 98
01/31/25 02:56 01/31/25 06:00 01/31/25 06:00 01/31/25 06:00 01/31/25 06:00
<Pura Mullen PA-C - Last Filed: 01/31/25 09:25>
MDM/Problems Addressed
Differential Diagnosis Includes:
ddx include cardiac dysrhythmia, electrolyte derangement, anxiety, essential hypertension
MDM/Problems Addressed:
The patient is an 79-year-old male with a hx of afib, GERD, lung cancer who presents with palpitations and lightheadedness, accompanied by episodes of elevated blood pressure. The patient described palpitations that awaken him from sleep, which
occur in waves and last approximately 20-25 minutes. On one occasion, while in the car outside the ER, he noted a blood pressure reading of 172/65. He cannot take many blood pressure meds due to his extensive lactose allergy. In the ER, his blood
pressure came down without intervention. He is well appearing in no acute distress and currently asymptomatic.
In light of patient's reported episode of shortness of breath, as well as his pedal edema, I did offer chest x-ray to assess for acute disease such as pulmonary edema or developing pneumonia however patient does not want to be exposed to further
radiation. I did discuss with patient that we would not be able to evaluate for those diagnosis. Patient expresses understanding, no shortness of breath at this time or chest pain.
Dose of lokelma given for mild hypokalemia otherwise labs unremarkable. Patient was observed on cardiac monitoring. Patient stable for discharge home and cardiology/PCP follow up.
<Pura Mullen PA-C - Last Filed: 01/31/25 09:25>
*Pulse Oximetry
SaO2: 100
Oxygen Mode of Delivery: Room air
Patient hypoxic: no
*Critical Care Note
Total Time (30-74mins, 75-104mins- exclusive of procedures): Not Applicable
ED Attending Note
<Pura Mullen PA-C - Last Filed: 01/31/25 09:25>
-
Portions of this chart may have been created with voice recognition software.� Occasional wrong word or��sound alike� substitutions may have occurred due to the inherent limitations of voice recognition software.
<Jerry Preciado DO - Last Filed: 01/31/25 03:50>
ED Attending Note
Patient seen and examined by attending physician: Yes
I performed the substantive portion of visit, reviewed & personally made and approve the management plan that is documented in note by myself or DEMOND.: Yes
ED Attending Note:
I agree with Pura's note
Patient had palpitations in the night. He felt nervous that something was going on. He had some associated dizziness which seems worse than the last time he had similar episode.
General: Awake, Alert, Oriented X3. No acute distress.
Vitals: unremarkable
Head: Atraumatic
Eyes: Pupils equal, EOMI
Throat: Airway intact, no exudates
Neck: Trachea midline
Lungs: Clear and equal b/l
Heart: Regular rate, no murmurs
Neuro: Nonfocal
Extremities: pulses equal b/l, no edema
Patient presents with palpitations. He is in normal sinus rhythm at this time. EKG is unchanged from previous. Screening labs were pending. Stable for discharge when they return
Discharge Plan
Departure
Patient Disposition: Home (Routine Discharge)
Date of Disposition: 01/31/25
Time of Disposition: 06:31
Patient with high blood pressure during this ER visit?: Yes
Condition: Good
Discharge Problem:
Episodic lightheadedness, Hyperkalemia, Hypertension
Instructions: Palpitations (DC), Dizziness in adults - ED (DC), BLOOD PRESSURE
Prescriptions:
No Action
dorzolamide 1 DROP drops
1 drp BOTH EYES TID
dabigatran etexilate [Pradaxa] 150 mg Capsule
150 mg PO BID Qty: 180 5RF
dofetilide 125 mcg Capsule
125 mcg PO Q12 Qty: 180 5RF
diltiazem HCl 180 mg Capsule,Extended Release 24 Hr
180 mg PO DAILY
brimonidine 0.1 % Drops
1 drp LEFT EYE BID
bromfenac 0.09 % Drops
1 drp LEFT EYE BID
levalbuterol tartrate 45 mcg/actuation Hfa Aerosol Inhaler
1 puff INHALATION PRN PRN (Reason: sob)
loteprednol etabonate 0.5 % Drops,Suspension
1 drp LEFT EYE DAILY
Eye Drop Replaced Pilocarpine
1 drp BOTH EYES BID
Patient Comments:
pt does not know name of drops
Referrals:
Josr Albarran MD [Family Provider, Internal Medicine]
Torsten Green MD [Active, Cardiology] - Call in 1-3 days for appt
Activity Restrictions/Additional Instructions:
Please continue to monitor your symptoms. Please have CMP rechecked in 1 week. You received a dose of lokelma today. Please follow-up with your primary care provider. Please follow-up with Dr. Green.
PLEASE RETURN TO THE ER SHOULD YOU DEVELOP CHEST PAIN, SHORTNESS OF BREATH, FAINTING SPELLS, VERTIGO, DIFFICULTY AMBULATING, OR ANY OTHER SIGNS OR SYMPTOMS WORRISOME TO YOU.
Interventions
Interventions:
*Risk Screen - Suicide Last Done: 01/31/25 02:56
*General Assessment Last Done: 01/31/25 03:30
*Neglect/Abuse Screening Last Done: 01/31/25 03:30
*ED- Fall Risk Assessment Last Done: 01/31/25 03:30
*ED COVID-19 Vaccine History Last Done: 01/31/25 03:30
*Nursing Disposition Last Done: 01/31/25 06:43
ED- Cardiac Assessment Last Done: 01/31/25 03:30
ED- Pulmonary Assessment Last Done: 01/31/25 03:30
Discharge Date and Time
Discharge Date/Time: 01/31/25 06:51
Print Language: BARBADIAN
[2025-01-31 04:00] VITALS: BP 160/69
[2025-01-31 04:22] LABS: Troponin I < 0.012 ng/ml
[2025-01-31 04:24] LABS: ALT (SGPT) 22 U/L (0-50); AST (SGOT) 21 U/L (17-59); Albumin 4.2 g/dl (3.5-5.0); Alkaline Phosphatase 66 U/L (38-126); Blood Urea Nitrogen 22 mg/dl (9-20); Calcium 9.5 mg/dl (8.4-10.2); Carbon Dioxide 28 mmol/L (22-30); Chloride 102 mmol/L (98-107); Glucose 89 mg/dl (70-99); Potassium 5.5 mmol/L (3.5-5.1); Sodium 135 mmol/L (135-145); Total Protein 6.7 g/dl (6.3-8.2); eGFR > 60.00
[2025-01-31 04:53] LABS: Hematocrit 40.9 % (39.0-52.0); Hemoglobin 13.7 g/dL (13.0-18.0); Mean Corp Hgb Conc. 33.5 g/dL (33.0-37.0); Mean Corpuscular Volume 91.7 fL (80.0-94.0); Nucleated Red Blood Cells % 0 % (-); Platelet Count 669 10^3/uL (130-400); Red Cell Dist. Width 13.7 % (11.5-14.5)
[2025-01-31 06:00] VITALS: BP 151/55
[2025-01-31] MEDS: LOKELMA 10 GRAM PO (06:00)
== END 2025-01-31 06:51 | disposition home or self-care (01) ==
LOC: EMR 02:53
PROVIDERS: Physician Assistant; EMERGENCY PHYSICIAN Emergency Medicine; FAMILY PHYSICIAN Internal Medicine
DX: E87.5 Hyperkalemia (principal); R42 Dizziness and giddiness; I10 Essential (primary) hypertension; R00.2 Palpitations; I48.91 Unspecified atrial fibrillation; J44.89 Other specified chronic obstructive pulmonary disease; Z85.118 Personal history of other malignant neoplasm of bronchus and lung; Z87.891 Personal history of nicotine dependence
CPT/HCPCS: 99284; 80053; 83880; 84484; 85025; 93005

== ENCOUNTER 2025-03-20 00:32 | Emergency (ER) | payer OTHER, SELFPAY ==
[2025-03-20 00:34] VITALS: BP 170/82
[2025-03-20 01:03] VITALS: BP 148/75
[2025-03-20 01:27] LABS: Hematocrit 46.0 % (39.0-52.0); Hemoglobin 14.8 g/dL (13.0-18.0); Mean Corp Hgb Conc. 32.2 g/dL (33.0-37.0); Mean Corpuscular Volume 94.3 fL (80.0-94.0); Nucleated Red Blood Cells % 0 % (-); Platelet Count 670 10^3/uL (130-400); Red Cell Dist. Width 13.4 % (11.5-14.5)
--- NOTE | 2025-03-20 01:29 | ED.GENMED ---
History of Present Illness
General
Chief Complaint: Rectal Bleeding
Source: patient and previous hospital records (ED visit for very similar complaint March 03, 2024)
Exam Limitations: none
Time Seen by Provider: 03/20/25 00:50
Nursing documentation reviewed up to this point in time: agreed with
History of Present Illness
History of Present Illness:
This is a 78-year-old gentleman with history of PAF, chronically maintained on Pradaxa as well as Tikosyn and diltiazem. He has remote history of left lung cancer, status post left lobe resection 2005. History of COPD, GERD, irritable bowel
disease, anxiety, glaucoma, thrombocytosis as well as history of hemorrhoids undergoing hemorrhoidectomy at age 17 and since then has been suffering with anal stenosis for which he follows with colorectal surgery, Dr. Leon.
More recently he has been diagnosed with recurrent lung cancer with 2 spots in his right lung as well as some suspicious lesions of his vertebra and underwent L1 vertebral body biopsy last week but this was abandoned due to patient unable to
tolerate prone positioning to complete the procedure.
He admits to chronically straining to pass a bowel movement and tonight after straining to pass a bowel movement he became concerned when he noted a moderate amount of bright red to dark red blood on the toilet tissue. He denies blood in the
toilet, denies painful defecation other than chronically straining to pass a bowel movement. He denies abdominal pain. No dizziness or lightheadedness.
No recurrent episodes.
Upon review of records, patient presented to this ED March 03, 2024 with very similar complaint of bright red blood on toilet tissue after straining to pass a bowel movement. Unremarkable workup at that time. Concern for hemorrhoidal bleeding
versus anal fissure and placed on a course of Anusol suppositories with plan to follow-up with colorectal surgery, Dr. Leon. At that time patient was planned to undergo rectal exam under sedation with Dr. Leon along with dilation, sphincterotomy
and advancement flap. Thus far he admits to neglecting following up with colorectal surgeon.
He has history of chronic blepharitis bilateral eyes and states he was evaluated at [facility] 1 week ago, started on oral doxycycline for blepharitis. Thus far no improvement in his blepharitis symptoms.
Other than Pradaxa he takes no other anticoagulants. He denies NSAID use.
Past History
Past History
ED Past Medical History: Arrthythmia (Atrial fibrillation), Asthma, Cancer (Lung cancer 2005), COPD, GERD (Hiatal hernia), Psychiatric (Anxiety), Other (Irritable bowel disease, prostatic hypertrophy, glaucoma) and Other (Bronchiectasis)
ED Past Surgical History: Other (Left lung lobectomy August 2005, hemorrhoidectomy at age 17, inguinal hernia repair)
Social History
Tobacco: Former smoker (Quit with lung cancer diagnosis 2005)
Alcohol: None
Drug: None
Personal:
Living: alone
Employment: Employed (Musician)
Family History
Family History: Hypertension
Phy Exam
Physical Exam
Physical Exam:
GENERAL: 79-year-old gentleman appears his stated age, awake and alert, pleasant, easily communicative, mildly anxious otherwise in no acute distress.
EYE: Mild bilateral conjunctival injection. Blepharitis bilateral eyes. Anicteric.
NECK: Supple, nontender, no meningismus, no significant adenopathy.
ENT: oral mucosa is moist. No rhinorrhea.
CARDIAC: Regular rate and rhythm. no murmur.
LUNGS: Clear breath sounds bilaterally, no acute respiratory distress, no wheezes/rales/rhonchi
ABDOMEN: Soft, nondistended, without focal tenderness, no r/g, no cvat. normoactive BS. Rectal exam reveals moderate anal stenosis, no masses nor external hemorrhoids noted, scant bright red blood per vault, heme positive.
NEUROLOGICAL: Alert and oriented x3, no focal neuro deficits. Gait is steady.
SKIN: Warm and dry, normal color, skin intact. No rash.
MUSCULOSKELETAL: No C/C/E. peripheral pulses are full and equal b/l. No palpable tenderness.
PSYCH: Normal and appropriate interaction.
Course
Orders/Labs/Results
Orders:
Orders
03/20/25 01:01
Complete Blood Count/With Diff Urgent
Comprehensive Metabolic Panel Urgent
Abnormal Lab Results
03/20/25
01:01
MCV 94.3 H fL
(80.0-94.0)
MCHC 32.2 L g/dL
(33.0-37.0)
Plt Count 670 H 10^3/uL
(130-400)
Absolute Neuts (auto) 6.7 H 10^3/uL
(1.4-6.5)
Absolute Lymphs (auto) 1.1 L 10^3/uL
(1.2-3.4)
Absolute Monos (auto) 0.8 H 10^3/uL
(0.1-0.6)
Lymphocytes % 11.5 L %
(20.5-51.1)
Eosinophils % 7.4 H %
(0-6)
BUN 26 H mg/dl
(9-20)
Creatinine 1.6 H mg/dL
(0.7-1.3)
03/20/25 01:01
03/20/25 01:01
Vital Signs
Initial and Last Documented VS:
Initial Vital Signs
Temp Pulse Resp BP Pulse Ox
97.7 F 66 16 170/82 100
03/20/25 00:34 03/20/25 00:34 03/20/25 00:34 03/20/25 00:34 03/20/25 00:34
Last Documented Vital Signs
Temp Pulse Resp BP Pulse Ox
97.7 F 55 14 138/58 100
03/20/25 00:34 03/20/25 02:00 03/20/25 02:00 03/20/25 02:00 03/20/25 02:00
MDM/Problems Addressed
Differential Diagnosis Includes:
The Differential Diagnosis includes, in no particular order and is not limited to:
1. Gastrointestinal bleeding from colonic source.
2. Hemorrhoids.
3. Anal fissure.
4. Colorectal cancer.
5. Diverticulosis.
6. Inflammatory bowel disease.
7. AVM
8. diverticular bleeding
9. Coagulopathy.
10. Ischemic colitis.
MDM/Problems Addressed:
Acute rectal bleeding.
Reassuring that patient noted blood only with wiping and not within the toilet bowl nor blood-streaked around bowel movement.
He does have history of hemorrhoids and has had similar episode of bright red blood on toilet tissue during ED visit 1 year ago.
Overall benign abdominal exam, soft, nontender and patient continues to deny abdominal pain. No recurrent episodes of rectal bleeding.
He remains hemodynamically stable.
Will check labs and continue to observe in the ED. Consider imaging if rectal bleeding recurs.
Chronic conditions affecting care: Arrhythmia (A-fib, chronically maintained on Pradaxa), Psychiatric illness (Anxiety), Cancer and Other (Anal stenosis, hemorrhoids, chronic straining to pass bowel movement)
*Pulse Oximetry
SaO2: 100
Oxygen Mode of Delivery: Room air
Patient hypoxic: no
*Critical Care Note
Total Time (30-74mins, 75-104mins- exclusive of procedures): Not Applicable
Update Note
Update Note:
04:05
Patient continues to rest comfortably.
He continues to deny pain. Abdomen is soft without appreciable tenderness.
No recurrent episodes of rectal bleeding.
Labs are unremarkable, stable thrombocytosis. Normal H&H. Mildly elevated creatinine, similar sporadic elevations noted previously.
I suspect rectal bleeding, only noted on toilet tissue when wiping his local/rectal versus anal in nature and may be related to recurrent internal hemorrhoids as patient admits to significant straining with passing bowel movements on a chronic basis.
Will place on a course of Anusol suppositories.
Recommend high-fiber diet and staying well-hydrated on a daily basis.
Encouraged prompt follow-up with colorectal surgery, Dr. Leon.
Strict return precautions discussed.
ED Attending Note
-
Portions of this chart may have been created with voice recognition software.� Occasional wrong word or��sound alike� substitutions may have occurred due to the inherent limitations of voice recognition software.
Discharge Plan
Departure
Patient Disposition: Home (Routine Discharge)
Date of Disposition: 03/20/25
Time of Disposition: 04:13
Patient with high blood pressure during this ER visit?: No
Condition: Good
Discharge Problem:
Rectal bleed
Instructions: Hemorrhoids (DC), Bloody stools in adults - ED (DC)
Prescriptions:
New
hydrocortisone acetate [Anusol-HC] 25 mg suppository
25 mg NE BID Qty: 24 0RF
No Action
dorzolamide 1 DROP drops
1 drp BOTH EYES TID
dabigatran etexilate [Pradaxa] 150 mg Capsule
150 mg PO BID Qty: 180 5RF
dofetilide 125 mcg Capsule
125 mcg PO Q12 Qty: 180 5RF
diltiazem HCl 180 mg Capsule,Extended Release 24 Hr
180 mg PO DAILY
brimonidine 0.1 % Drops
1 drp LEFT EYE BID
bromfenac 0.09 % Drops
1 drp LEFT EYE BID
levalbuterol tartrate 45 mcg/actuation Hfa Aerosol Inhaler
1 puff INHALATION PRN PRN (Reason: sob)
loteprednol etabonate 0.5 % Drops,Suspension
1 drp LEFT EYE DAILY
Eye Drop Replaced Pilocarpine
1 drp BOTH EYES BID
Patient Comments:
pt does not know name of drops
Referrals:
Mohsen Leon MD [Active, ColoRectal] - Call in 1-3 days for appt
Avis,Josr, MD [Family Provider, Internal Medicine]
Interventions
Interventions:
*Risk Screen - Suicide Last Done: 03/20/25 00:34
*General Assessment Last Done: 03/20/25 00:34
*Neglect/Abuse Screening Last Done: 03/20/25 00:34
*ED- Fall Risk Assessment Last Done: 03/20/25 00:56
*ED COVID-19 Vaccine History Last Done: 03/20/25 00:56
*ED Influenza Vaccine History Last Done: 03/20/25 00:56
IR-Yffuzr-Pspppbhuvz Assessment Last Done: 03/20/25 00:56
ED- Cardiac Assessment Last Done: 03/20/25 00:56
ED- Pulmonary Assessment Last Done: 03/20/25 00:56
Discharge Date and Time
Print Language: BELIZEAN
[2025-03-20 01:32] LABS: ALT (SGPT) 22 U/L (0-50); AST (SGOT) 19 U/L (17-59); Albumin 4.4 g/dl (3.5-5.0); Alkaline Phosphatase 71 U/L (38-126); Blood Urea Nitrogen 26 mg/dl (9-20); Calcium 9.4 mg/dl (8.4-10.2); Carbon Dioxide 25 mmol/L (22-30); Chloride 103 mmol/L (98-107); Glucose 92 mg/dl (70-99); Potassium 4.7 mmol/L (3.5-5.1); Sodium 136 mmol/L (135-145); Total Protein 7.0 g/dl (6.3-8.2); eGFR 43.29
[2025-03-20 02:00] VITALS: BP 138/58
[2025-03-20 04:17] VITALS: BP 151/71
== END 2025-03-20 04:31 | disposition home or self-care (01) ==
LOC: EMR 00:32
PROVIDERS: EMERGENCY PHYSICIAN Emergency Medicine; FAMILY PHYSICIAN Internal Medicine
DX: K62.5 Hemorrhage of anus and rectum (principal); J44.89 Other specified chronic obstructive pulmonary disease; I48.91 Unspecified atrial fibrillation; K21.9 Gastro-esophageal reflux disease without esophagitis; F41.9 Anxiety disorder, unspecified; K58.9 Irritable bowel syndrome, unspecified; H40.9 Unspecified glaucoma; N40.0 Benign prostatic hyperplasia without lower urinary tract symptoms; Z79.01 Long term (current) use of anticoagulants; Z82.49 Family history of ischemic heart disease and other diseases of the circulatory system; Z85.118 Personal history of other malignant neoplasm of bronchus and lung; Z87.19 Personal history of other diseases of the digestive system; Z87.891 Personal history of nicotine dependence
CPT/HCPCS: 99283; 80053; 85025

== ENCOUNTER 2025-03-23 04:43 | Emergency (ER) | payer OTHER, SELFPAY ==
[2025-03-23 04:45] VITALS: BP 133/66
[2025-03-23 05:03] VITALS: BMI 19.9
--- NOTE | 2025-03-23 05:19 | ED.GENMED ---
History of Present Illness
General
Chief Complaint: Overdose Unintentional
Source: patient
Exam Limitations: none
Time Seen by Provider: 03/23/25 04:55
Nursing documentation reviewed up to this point in time: agreed with
History of Present Illness
History of Present Illness:
79-year-old male past medical history of A-fib currently on Pradaxa as well as decrease in with concerns of taking extra dose of Tikosyn and Pradaxa 2 hours prior to arrival to the emergency department. Claims that his last dose of medication was
9:00 at night which he typically does take in the evening. He woke up this morning and thought he missed his dose took an additional dose which was roughly 6 hours sooner than he typically takes it which is 9 in the morning. He claims he feels
very slightly jittery but denies any chest pain shortness of breath or palpitations. Denies any nausea vomiting or additional concerns. Denies any bleeding.
Past History
Past History
ED Past Medical History: Arrthythmia (Atrial fibrillation), Asthma, Cancer (Lung cancer 2005), COPD, GERD (Hiatal hernia), Psychiatric (Anxiety), Other (Irritable bowel disease, prostatic hypertrophy, glaucoma) and Other (Bronchiectasis)
ED Past Surgical History: Other (Left lung lobectomy August 2005, hemorrhoidectomy at age 17, inguinal hernia repair)
Social History
Tobacco: Former smoker (Quit with lung cancer diagnosis 2005)
Alcohol: None
Drug: None
Personal:
Living: alone
Employment: Employed (Musician)
Family History
Family History: Hypertension
Review of Systems
Review of Systems
Allergies reviewed?: Yes
All Other Systems: ROS reviewed and negative except as documented in HPI and ROS
Phy Exam
Physical Exam
Physical Exam:
GENERAL: Alert , in no apparent distress
EYE: pupils equal and reactive
NECK: Supple, no significant adenopathy.
ENT: o/p clr, mmm.
CARDIAC: Regular rate and rhythm .
LUNGS: Clear breath sounds bilaterally, no acute respiratory distress, no wheezes/rales/rhonchi
ABDOMEN: Soft, without focal tenderness, no r/g, no cvat
NEUROLOGICAL: Alert and oriented, no focal neuro deficits
SKIN: Warm and dry, skin intact.
MUSCULOSKELETAL: No edema, well perfused.
PSYCH: Normal and appropriate interaction.
Course
Orders/Labs/Results
Orders:
Orders
03/23/25 05:12
Electrocardiogram (*1) Urgent
Reason for Study: Hypertension, Benign
EKG- Treatment ONCE
Vital Signs
Initial and Last Documented VS:
Initial Vital Signs
Temp Pulse Resp BP Pulse Ox
97.4 F 73 16 133/66 98
03/23/25 04:45 03/23/25 04:45 03/23/25 04:45 03/23/25 04:45 03/23/25 04:45
Last Documented Vital Signs
Temp Pulse Resp BP Pulse Ox
97.4 F 66 16 133/66 100
03/23/25 04:45 03/23/25 05:01 03/23/25 04:45 03/23/25 04:45 03/23/25 05:22
MDM/Problems Addressed
MDM/Problems Addressed:
79-year-old male presenting to the emergency department today after being concerned that he took 1 extra dose of his Tikosyn 125 as well as Pradaxa 150 that he thought he did not take at his normal dosage last night. Took this roughly 6 hours
earlier than usual. Patient here in no distress without any significant symptoms at this time. Vital signs are normal EKG without any significant changes. Very low risk for any emergent complication stable for outpatient management. Advised to
take his next dose in the evening. Return precautions given.
*Pulse Oximetry
SaO2: 100
Oxygen Mode of Delivery: Room air
Patient hypoxic: no (100)
*Critical Care Note
Total Time (30-74mins, 75-104mins- exclusive of procedures): Not Applicable
ED Attending Note
-
Portions of this chart may have been created with voice recognition software.� Occasional wrong word or��sound alike� substitutions may have occurred due to the inherent limitations of voice recognition software.
Discharge Plan
Departure
Patient Disposition: Home (Routine Discharge)
Date of Disposition: 03/23/25
Time of Disposition: 05:24
Patient with high blood pressure during this ER visit?: No
Condition: Good
Covid-19: Not Applicable
Discharge Problem:
Accidental medication overdose
Instructions: Accidental Overdose (DC)
Prescriptions:
No Action
dorzolamide 1 DROP drops
1 drp BOTH EYES TID
dabigatran etexilate [Pradaxa] 150 mg Capsule
150 mg PO BID Qty: 180 5RF
dofetilide 125 mcg Capsule
125 mcg PO Q12 Qty: 180 5RF
diltiazem HCl 180 mg Capsule,Extended Release 24 Hr
180 mg PO DAILY
brimonidine 0.1 % Drops
1 drp LEFT EYE BID
bromfenac 0.09 % Drops
1 drp LEFT EYE BID
levalbuterol tartrate 45 mcg/actuation Hfa Aerosol Inhaler
1 puff INHALATION PRN PRN (Reason: sob)
loteprednol etabonate 0.5 % Drops,Suspension
1 drp LEFT EYE DAILY
Eye Drop Replaced Pilocarpine
1 drp BOTH EYES BID
Patient Comments:
pt does not know name of drops
hydrocortisone acetate [Anusol-HC] 25 mg suppository
25 mg OR BID Qty: 24 0RF
Referrals:
Josr Albarran MD [Family Provider, Internal Medicine]
Activity Restrictions/Additional Instructions:
You came to the emergency department today with concerns of an extra dose of your medication. Please keep your next dose and follow-up closely as an outpatient. Return for any worsening, new or concerning symptoms.
Interventions
Interventions:
*Risk Screen - Suicide Last Done: 03/23/25 04:45
*General Assessment Last Done: 03/23/25 05:03
*Neglect/Abuse Screening Last Done: 03/23/25 05:03
*ED- Fall Risk Assessment Last Done: 03/23/25 05:03
*ED COVID-19 Vaccine History Last Done: 03/23/25 05:03
*ED Influenza Vaccine History Last Done: 03/23/25 05:03
ED- Cardiac Assessment Last Done: 03/23/25 05:00
ED- Neurological Assessment Last Done: 03/23/25 05:00
ED-Psychological Assessment Last Done: 03/23/25 05:02
ED- Pulmonary Assessment Last Done: 03/23/25 05:00
Discharge Date and Time
Print Language: IRISH
== END 2025-03-23 05:31 | disposition home or self-care (01) ==
LOC: EMR 04:43
PROVIDERS: EMERGENCY PHYSICIAN Emergency Medicine; FAMILY PHYSICIAN Internal Medicine
DX: T65.891A Toxic effect of other specified substances, accidental (unintentional), initial encounter (principal); X58.XXXA Exposure to other specified factors, initial encounter; I48.91 Unspecified atrial fibrillation; Z79.01 Long term (current) use of anticoagulants; I10 Essential (primary) hypertension; Z87.891 Personal history of nicotine dependence; Z85.118 Personal history of other malignant neoplasm of bronchus and lung; J44.89 Other specified chronic obstructive pulmonary disease
CPT/HCPCS: 99283; 93005

== ENCOUNTER 2025-04-07 02:37 | Emergency (ER) | payer OTHER, SELFPAY ==
[2025-04-07 02:39] VITALS: BP 144/77
--- NOTE | 2025-04-07 03:18 | ED.GENMED ---
History of Present Illness
General
Chief Complaint: Abdominal Pain
Source: patient
Exam Limitations: none
Time Seen by Provider: 04/07/25 02:59
Nursing documentation reviewed up to this point in time: agreed with
History of Present Illness
History of Present Illness:
79-year-old male presenting to the emergency department today with concerns of intermittent upper abdominal pain most recently few hours ago that woke him from sleep. No nausea vomiting diarrhea. Has had some constipation. No chest pain shortness
of breath headedness some swelling to his lower extremities as well.
Past History
Past History
ED Past Medical History: Arrthythmia (Atrial fibrillation), Asthma, Cancer (Lung cancer 2005), COPD, GERD (Hiatal hernia), Psychiatric (Anxiety), Other (Irritable bowel disease, prostatic hypertrophy, glaucoma) and Other (Bronchiectasis)
ED Past Surgical History: Other (Left lung lobectomy August 2005, hemorrhoidectomy at age 17, inguinal hernia repair)
Social History
Tobacco: Former smoker (Quit with lung cancer diagnosis 2005)
Alcohol: None
Drug: None
Personal:
Living: alone
Employment: Employed (Musician)
Family History
Family History: Hypertension
Review of Systems
Review of Systems
Allergies reviewed?: Yes
All Other Systems: ROS reviewed and negative except as documented in HPI and ROS
Phy Exam
Physical Exam
Physical Exam:
GENERAL: Alert , in no apparent distress
EYE: pupils equal and reactive
NECK: Supple, no significant adenopathy.
ENT: o/p clr, mmm.
CARDIAC: Regular rate and rhythm .
LUNGS: Clear breath sounds bilaterally, no acute respiratory distress, no wheezes/rales/rhonchi
ABDOMEN: Soft, without focal tenderness, no r/g, no cvat
NEUROLOGICAL: Alert and oriented, no focal neuro deficits
SKIN: Warm and dry, skin intact.
MUSCULOSKELETAL: +1 pitting edema distal to the knees bilaterally well perfused.
PSYCH: Normal and appropriate interaction.
Course
Orders/Labs/Results
Orders:
Orders
04/07/25 03:18
Electrocardiogram (*1) Stat
Reason for Study: Abdominal Pain
EKG- Treatment ONCE
04/07/25 03:24
Complete Blood Count/With Diff Urgent
Comprehensive Metabolic Panel Urgent
Lipase Urgent
04/07/25 04:47
Urinalysis Reflex To Culture Urgent
Date Specimen was Collected: 04/07/25
Time Specimen was Collected: 04:45
Abnormal Lab Results
04/07/25
03:24
RBC 4.42 L 10^6/uL
(4.70-6.10)
MCH 31.4 H pg
(27.0-31.0)
Plt Count 667 H 10^3/uL
(130-400)
Absolute Monos (auto) 0.8 H 10^3/uL
(0.1-0.6)
Absolute Eos (auto) 0.9 H 10^3/uL
(0-0.7)
Lymphocytes % 13.4 L %
(20.5-51.1)
Monocytes % 9.6 H %
(1.7-9.3)
Eosinophils % 10.0 H %
(0-6)
Potassium 5.5 H mmol/L
(3.5-5.1)
BUN 24 H mg/dl
(9-20)
04/07/25 03:24
04/07/25 03:24
Vital Signs
Initial and Last Documented VS:
Initial Vital Signs
Temp Pulse Resp BP Pulse Ox
97.4 F 66 20 144/77 100
04/07/25 02:39 04/07/25 02:39 04/07/25 02:39 04/07/25 02:39 04/07/25 02:39
Last Documented Vital Signs
Temp Pulse Resp BP Pulse Ox
97.4 F 64 15 145/60 100
04/07/25 02:39 04/07/25 04:30 04/07/25 04:30 04/07/25 04:00 04/07/25 04:30
MDM/Problems Addressed
MDM/Problems Addressed:
79-year-old male presenting to the emergency department today with concerns of initial upper abdominal pain that is now resolved no nausea vomiting diarrhea. Also does note some leg swelling over the past week or so distally. Otherwise here labs
without emergent findings patient in no distress patient stable for discharge. He was notified of slightly elevated potassium level. Return precaution given
*Pulse Oximetry
SaO2: 100
Oxygen Mode of Delivery: Room air
Patient hypoxic: no (98)
*Critical Care Note
Total Time (30-74mins, 75-104mins- exclusive of procedures): Not Applicable
ED Attending Note
-
Portions of this chart may have been created with voice recognition software.� Occasional wrong word or��sound alike� substitutions may have occurred due to the inherent limitations of voice recognition software.
Discharge Plan
Departure
Patient Disposition: Home (Routine Discharge)
Date of Disposition: 04/07/25
Time of Disposition: 05:02
Patient with high blood pressure during this ER visit?: No
Condition: Good
Covid-19: Not Applicable
Discharge Problem:
Abdominal pain, Acute hyperkalemia
Instructions: Abdominal Pain
Prescriptions:
No Action
dorzolamide 1 DROP drops
1 drp BOTH EYES TID
dabigatran etexilate [Pradaxa] 150 mg Capsule
150 mg PO BID Qty: 180 5RF
dofetilide 125 mcg Capsule
125 mcg PO Q12 Qty: 180 5RF
diltiazem HCl 180 mg Capsule,Extended Release 24 Hr
180 mg PO DAILY
brimonidine 0.1 % Drops
1 drp LEFT EYE BID
bromfenac 0.09 % Drops
1 drp LEFT EYE BID
levalbuterol tartrate 45 mcg/actuation Hfa Aerosol Inhaler
1 puff INHALATION PRN PRN (Reason: sob)
loteprednol etabonate 0.5 % Drops,Suspension
1 drp LEFT EYE DAILY
Eye Drop Replaced Pilocarpine
1 drp BOTH EYES BID
Patient Comments:
pt does not know name of drops
hydrocortisone acetate [Anusol-HC] 25 mg suppository
25 mg GA BID Qty: 24 0RF
Referrals:
Josr Albarran MD [Family Provider, Internal Medicine]
Activity Restrictions/Additional Instructions:
You came to the emergency department today with concerns of abdominal pain. Here you get a reassuring assessment. Just slightly elevated potassium level. Please reduce potassium in your diet. Please drink plenty of fluids and follow-up closely
as an outpatient with your director pharmaceutical. Return for any worsening, new or concerning symptoms.
Interventions
Interventions:
*Risk Screen - Suicide Last Done: 04/07/25 02:43
*General Assessment Last Done: 04/07/25 03:21
*Neglect/Abuse Screening Last Done: 04/07/25 02:39
*ED COVID-19 Vaccine History Last Done: 04/07/25 03:21
*ED Influenza Vaccine History Last Done: 04/07/25 03:21
QB-[id number]-Flfpgzyqmh Assessment Last Done: 04/07/25 03:22
Discharge Date and Time
Print Language: SAMI
[2025-04-07 03:19] VITALS: BP 154/68
[2025-04-07 03:36] LABS: Hematocrit 40.7 % (39.0-52.0); Hemoglobin 13.9 g/dL (13.0-18.0); Mean Corp Hgb Conc. 34.2 g/dL (33.0-37.0); Mean Corpuscular Volume 92.1 fL (80.0-94.0); Nucleated Red Blood Cells % 0 % (-); Platelet Count 667 10^3/uL (130-400); Red Cell Dist. Width 13.5 % (11.5-14.5)
[2025-04-07 04:00] VITALS: BP 145/60
[2025-04-07 04:26] LABS: ALT (SGPT) 25 U/L (0-50); AST (SGOT) 23 U/L (17-59); Albumin 4.2 g/dl (3.5-5.0); Alkaline Phosphatase 72 U/L (38-126); Blood Urea Nitrogen 24 mg/dl (9-20); Calcium 9.8 mg/dl (8.4-10.2); Carbon Dioxide 27 mmol/L (22-30); Chloride 105 mmol/L (98-107); Glucose 85 mg/dl (70-99); Lipase 67 U/L (23-300); Potassium 5.5 mmol/L (3.5-5.1); Sodium 136 mmol/L (135-145); Total Protein 7.1 g/dl (6.3-8.2); eGFR > 60.00
[2025-04-07 05:00] VITALS: BP 147/60
[2025-04-07 05:01] LABS: Urine Character Clear (Clear)
== END 2025-04-07 05:18 | disposition home or self-care (01) ==
LOC: EMR 02:37
PROVIDERS: Physician Assistant; EMERGENCY PHYSICIAN Student in an Organized Health Care Education/Training Program; FAMILY PHYSICIAN Internal Medicine
DX: R10.10 Upper abdominal pain, unspecified (principal); E87.5 Hyperkalemia; I48.91 Unspecified atrial fibrillation; J44.89 Other specified chronic obstructive pulmonary disease; K21.9 Gastro-esophageal reflux disease without esophagitis; F41.9 Anxiety disorder, unspecified; K58.9 Irritable bowel syndrome, unspecified; H40.9 Unspecified glaucoma; N40.0 Benign prostatic hyperplasia without lower urinary tract symptoms; Z82.49 Family history of ischemic heart disease and other diseases of the circulatory system; Z85.118 Personal history of other malignant neoplasm of bronchus and lung; Z87.891 Personal history of nicotine dependence
CPT/HCPCS: 99283; 80053; 81003; 83690; 85025; 93005

== ENCOUNTER 2025-04-13 05:20 | Emergency (ER) | payer OTHER, SELFPAY ==
[2025-04-13 05:22] VITALS: BP 149/73
[2025-04-13 05:54] LABS: Hematocrit 41.7 % (39.0-52.0); Hemoglobin 14.2 g/dL (13.0-18.0); Mean Corp Hgb Conc. 34.1 g/dL (33.0-37.0); Mean Corpuscular Volume 92.3 fL (80.0-94.0); Platelet Count 658 10^3/uL (130-400); Red Cell Dist. Width 13.6 % (11.5-14.5)
--- NOTE | 2025-04-13 06:16 | ED.GENMED ---
History of Present Illness
General
Chief Complaint: Cough
Source: patient
Exam Limitations: none
Time Seen by Provider: 04/13/25 06:14
History of Present Illness
History of Present Illness:
79-year-old male presents primarily complaining of a cough. Started yesterday. Some subjective fever of 99+. Some sputum. No chest pain no pleuritic pain no significant shortness of breath. Had a brief episode of right lateral abdominal pain
this morning but that resolved. Currently asymptomatic from a abdominal standpoint. Was here weeks ago with abdominal symptoms but that also resolved and was different than this.
Past History
Past History
ED Past Medical History: Arrthythmia (Atrial fibrillation), Asthma, Cancer (Lung cancer 2005), COPD, GERD (Hiatal hernia), Psychiatric (Anxiety), Other (Irritable bowel disease, prostatic hypertrophy, glaucoma) and Other (Bronchiectasis)
ED Past Surgical History: Other (Left lung lobectomy August 2005, hemorrhoidectomy at age 17, inguinal hernia repair)
Social History
Tobacco: Former smoker (Quit with lung cancer diagnosis 2005)
Alcohol: None
Drug: None
Personal:
Living: alone
Employment: Employed (Musician)
Family History
Family History: Hypertension
Review of Systems
Review of Systems
All Other Systems: Not applicable
Constitutional: Denies chills
Respiratory: Reports cough
ABD/GI: Denies diarrhea
Phy Exam
Physical Exam
Physical Exam:
GENERAL: Alert and oriented in no apparent distress
EYE: Orbits normal. Ectropion
NECK: Supple, no significant adenopathy.
ENT: Pharynx without erythema
CARDIAC: Regular rate and rhythm without any obvious murmurs.
LUNGS: No respiratory distress. Nasal congestion. Mild occasional rare expiratory rhonchi or wheeze. No retractions. Speaking without difficulty
ABDOMEN: Soft, without focal tenderness or distention
NEUROLOGICAL: Alert and oriented , grossly non-focal
SKIN: Warm and dry, no rash or lesion, no discoloration, skin intact.
MUSCULOSKELETAL: No edema,no deformity.Good color
PSYCH: Normal and appropriate interaction.
Course
Orders/Labs/Results
Orders:
Orders
04/13/25 05:29
Electrocardiogram (*1) Urgent
Reason for Study: Chest Pain
EKG- Treatment ONCE
04/13/25 05:45
Complete Blood Count/No Diff Urgent
Comprehensive Metabolic Panel Urgent
Troponin I Urgent
04/13/25 06:22
CXR2 [CR Chest - 2 Views ] Urgent
Comment:
Reason For Exam: Cough
04/13/25 06:23
US Abdomen Complete/Upper Urgent
Comment:
Reason For Exam: Intermittent right sided abdominal pain
04/13/25 06:25
COVID-19 Antigen Urgent
Source: Nasal Swab
Influenza A+B Rapid Molecular Urgent
JONATHAN Source: Nasal Swab
Specimen Description:
Abnormal Lab Results
04/13/25 04/13/25
05:45 06:25
RBC 4.52 L 10^6/uL
(4.70-6.10)
MCH 31.4 H pg
(27.0-31.0)
Plt Count 658 H 10^3/uL
(130-400)
BUN 23 H mg/dl
(9-20)
SARS-CoV-2 Antigen Positive A
(Negative)
04/13/25 05:45
04/13/25 05:45
Vital Signs
Initial and Last Documented VS:
Initial Vital Signs
Temp Pulse Resp BP Pulse Ox
99.0 F 80 16 149/73 100
04/13/25 05:22 04/13/25 05:22 04/13/25 05:22 04/13/25 05:22 04/13/25 05:22
Last Documented Vital Signs
Temp Pulse Resp BP Pulse Ox
99.0 F 75 21 149/60 99
04/13/25 05:22 04/13/25 08:55 04/13/25 08:55 04/13/25 08:55 04/13/25 08:55
MDM/Problems Addressed
Differential Diagnosis Includes:
Patient's primary complaint is respiratory symptoms including cough congestion some subjective low-grade fevers. In no respiratory distress. Most consistent with a viral syndrome. Will check COVID flu and chest x-ray. As for these intermittent
abdominal symptoms they have resolved he is in no distress. Had abdominal pain weeks ago. Per completeness we will check LFTs and ultrasound.
*Radiology
Radiology exam reviewed: preliminary read by ED provider (No acute findings), radiology read reviewed (No acute findings) and other (Negative ultrasound)
*Pulse Oximetry
SaO2: 100
Oxygen Mode of Delivery: Room air
Patient hypoxic: no
*EKG
Interpretation: abnormal
Comparison EKG: no changes
Heart Rate: 93
Rate: normal
Rhythm: sinus
Eva: normal axis
Interval: normal interval
QRS Pattern: normal QRS and left vent hypertrophy
Ischemia: non-specific ST changes
*Critical Care Note
Total Time (30-74mins, 75-104mins- exclusive of procedures): Not Applicable
Data Reviewed
Review of Other/Old Records Reveals: Labs, Records, Radiology Studies and Testing
Update Note
Update Note:
Patient COVID-positive. Medically stable. No respiratory distress. Normal pulse ox. Negative chest x-ray. No indication for admission. Patient is theoretically a candidate for Paxlovid but has multiple drug interactions including his Tikosyn
and Pradaxa. In my opinion the risk of drug issues outweighs the benefit. This was discussed at length with the patient and he agrees. He does not want to start the medication at this time
ED Attending Note
-
Portions of this chart may have been created with voice recognition software.� Occasional wrong word or��sound alike� substitutions may have occurred due to the inherent limitations of voice recognition software.
Discharge Plan
Departure
Patient Disposition: Home (Routine Discharge)
Date of Disposition: 04/13/25
Time of Disposition: 09:11
Patient with high blood pressure during this ER visit?: Yes
Discharge Problem:
COVID infection
Instructions: COVID-19 in adults (DC), BLOOD PRESSURE
Prescriptions:
No Action
dorzolamide 1 DROP drops
1 drp BOTH EYES TID
dabigatran etexilate [Pradaxa] 150 mg Capsule
150 mg PO BID Qty: 180 5RF
dofetilide 125 mcg Capsule
125 mcg PO Q12 Qty: 180 5RF
diltiazem HCl 180 mg Capsule,Extended Release 24 Hr
180 mg PO DAILY
brimonidine 0.1 % Drops
1 drp LEFT EYE BID
bromfenac 0.09 % Drops
1 drp LEFT EYE BID
levalbuterol tartrate 45 mcg/actuation Hfa Aerosol Inhaler
1 puff INHALATION PRN PRN (Reason: sob)
loteprednol etabonate 0.5 % Drops,Suspension
1 drp LEFT EYE DAILY
Eye Drop Replaced Pilocarpine
1 drp BOTH EYES BID
Patient Comments:
pt does not know name of drops
hydrocortisone acetate [Anusol-HC] 25 mg suppository
25 mg [place] BID Qty: 24 0RF
Referrals:
Josr Albarran MD [Family Provider, Internal Medicine] - Follow up in 2-3 days
Interventions
Interventions:
*Risk Screen - Suicide Last Done: 04/13/25 05:22
*General Assessment Last Done: 04/13/25 05:22
*Neglect/Abuse Screening Last Done: 04/13/25 05:22
*ED COVID-19 Vaccine History Last Done: 04/13/25 06:10
*ED Influenza Vaccine History Last Done: 04/13/25 06:10
[facility] Fall Risk Assessment Tool Last Done: 04/13/25 06:10
ED- Pulmonary Assessment Last Done: 04/13/25 06:12
Discharge Date and Time
Print Language: UPPER SORBIAN
[2025-04-13 06:22] VITALS: BP 155/61
[2025-04-13 06:25] LABS: Troponin I < 0.012 ng/ml
[2025-04-13 06:26] LABS: ALT (SGPT) 24 U/L (0-50); AST (SGOT) 23 U/L (17-59); Albumin 4.5 g/dl (3.5-5.0); Alkaline Phosphatase 85 U/L (38-126); Blood Urea Nitrogen 23 mg/dl (9-20); Calcium 9.6 mg/dl (8.4-10.2); Carbon Dioxide 23 mmol/L (22-30); Chloride 103 mmol/L (98-107); Estimated Creatinine Clearance 47 ml/min; Glucose 92 mg/dl (70-99); Potassium 5.0 mmol/L (3.5-5.1); Sodium 135 mmol/L (135-145); Total Protein 7.1 g/dl (6.3-8.2); eGFR > 60.00
[2025-04-13 06:50] LABS: COVID-19 Antigen Positive (Negative)
[2025-04-13 07:00] VITALS: BP 154/58
[2025-04-13 08:55] VITALS: BP 149/60
== END 2025-04-13 09:50 | disposition home or self-care (01) ==
LOC: EMR 05:20
PROVIDERS: Emergency Medicine; EMERGENCY PHYSICIAN Emergency Medicine; FAMILY PHYSICIAN Internal Medicine
DX: U07.1 COVID-19 (principal); I10 Essential (primary) hypertension; I48.91 Unspecified atrial fibrillation; Z85.118 Personal history of other malignant neoplasm of bronchus and lung; Z90.2 Acquired absence of lung [part of]; Z87.891 Personal history of nicotine dependence
CPT/HCPCS: 99285; 71046; 76700; 80053; 84484; 85027; 87502; 87811; 93005

== ENCOUNTER 2025-04-14 02:58 | Emergency (ER) | payer OTHER, SELFPAY ==
[2025-04-14 03:03] VITALS: BP 129/61
--- NOTE | 2025-04-14 03:24 | ED.GENMED ---
History of Present Illness
General
Chief Complaint: Fatigue
Source: patient
Time Seen by Provider: 04/14/25 03:08
Nursing documentation reviewed up to this point in time: agreed with
History of Present Illness
History of Present Illness:
Note:
CHIEF COMPLAINT(S)
Excessive sleepiness and inability to manage medications independently.
HISTORY OF PRESENT ILLNESS
The patient is an 79-year-old male presenting with excessive sleepiness, leading to difficulty adhering to his medication schedule. He reports, 'I sleep through,' indicating he wakes up hours later than planned. He does not use an alarm to wake up
and manage his medication intake. Additionally, he reports experiencing shortness of breath and was previously diagnosed with COVID-19. The patient also expresses concerns about constipation, describing his stools as very watery. He is unsure about
his hydration but mentions, 'Claudine got to drink a lot.' He denies using a stool softener due to concerns about his blood thinner medication. The patients dietary intake may be insufficient, as he admits, 'Are you not eating enough? At this point,
yeah.'
SOCIAL DETERMINANTS AFFECTING HEALTH
The patient lives alone and is considering the need for assisted living or group home care due to difficulty managing self-care. He inquires about programs or assistance, such as a visiting nurse, to help with medication management.
PHYSICAL EXAM
General: Alert, no acute distress. Resting comfortably on the bed
Skin: Warm, dry.
Head: Normocephalic, atraumatic.
Neck: Supple, trachea midline.
Eye, Ears, Nose, Mouth, and Throat: Oral mucosa moist.
Cardiovascular: Normal peripheral perfusion, no edema.
Respiratory: Respirations are non-labored.
Gastrointestinal: Abdomen nondistended.
Musculoskeletal: Normal range of motion, normal strength.
Neurological: Alert and oriented to person, place, time, and situation. No focal neurological deficit observed.
Psychiatric: Cooperative, appropriate mood & affect.
PLAN
- Arrange a case management consult for discharge planning and explore options for a visiting nurse to assist with medication management at home.
- Recommend an [id number] stool softener, specifically docusate sodium (Colace), to manage constipation concerns.
- Include instructions for hydration and monitoring dietary intake in discharge paperwork to address reported symptoms.
DIFFERENTIAL DIAGNOSIS
The Differential Diagnosis includes, in no particular order and is not limited to:
1. Medication side effects
2. Sleep apnea
3. Underlying depression
4. Dehydration
5. Poor dietary intake
6. Chronic obstructive pulmonary disease
7. Heart failure
8. Hypothyroidism
9. Anemia
10. Electrolyte imbalance
Disposition:
SUMMARY OF ENCOUNTER
The patient, an 79-year-old male, was seen in the emergency department due to excessive sleepiness and difficulty managing medications. His primary concerns included waking up later than planned without using an alarm, the inability to adhere to his
medication schedule, and experiencing excessive fatigue. He also reported shortness of breath and watery stools. Given his current condition and history with COVID-19, these symptoms raised concerns about his overall health management, especially
considering his living situation alone and expressed interest in assisted living options.
DISPOSITION
Discharge.
ASSESSMENT
The patients fatigue and difficulties in medication management are likely multifactorial, with possible contributions from medication side effects, sleep disturbances, and dehydration.
PLAN
Arrange for a case management consult to explore assistance with medication management through a visiting nurse. Recommend an [id number]-[id number] stool softener, such as docusate sodium, to address constipation. Emphasize the importance of proper
hydration and adequate dietary intake.
PATIENT EDUCATION AND COUNSELING
Advised the patient on the importance of hydration and consistent dietary habits. Encouraged consideration of assisted living arrangements or in-home care services to aid with his daily activities and medication management.
MEDICAL DECISION MAKING
- Complexity of Data Reviewed: Chronic conditions affecting care include past COVID-19 infection and potential dehydration. Differential diagnosis includes medication side effects, sleep apnea, underlying depression, dehydration, poor dietary
intake, chronic obstructive pulmonary disease, heart failure, hypothyroidism, anemia, and electrolyte imbalance.
DIAGNOSIS
- R53.83 - Other fatigue
The note addresses the patients primary issues, potential management strategies, and ensures safe discharge with follow-up plans, reflecting the evaluation and care discussed during the encounter.
Past History
Past History
ED Past Medical History: Arrthythmia (Atrial fibrillation), Asthma, Cancer (Lung cancer 2005), COPD, GERD (Hiatal hernia), Psychiatric (Anxiety), Other (Irritable bowel disease, prostatic hypertrophy, glaucoma) and Other (Bronchiectasis)
ED Past Surgical History: Other (Left lung lobectomy August 2005, hemorrhoidectomy at age 17, inguinal hernia repair)
Social History
Tobacco: Former smoker (Quit with lung cancer diagnosis 2005)
Alcohol: None
Drug: None
Personal:
Living: alone
Employment: Employed (Musician)
Family History
Family History: Hypertension
Phy Exam
Physical Exam
Physical Exam:
.
Course
Orders/Labs/Results
Orders:
Orders
04/14/25 03:24
Case Management Consult ONCE
Case Management Consult: VN/Home Care
Comment: Patient having a difficult time remembering to take his meds. He lives alone. Just diagnosed with
COVID.
Vital Signs
Initial and Last Documented VS:
Initial Vital Signs
Temp Pulse Resp BP Pulse Ox
98.4 F 69 20 129/61 98
04/14/25 03:03 04/14/25 03:03 04/14/25 03:03 04/14/25 03:03 04/14/25 03:03
Last Documented Vital Signs
Temp Pulse Resp BP Pulse Ox
98.4 F 69 20 129/61 98
04/14/25 03:03 04/14/25 03:03 04/14/25 03:03 04/14/25 03:03 04/14/25 03:24
*Pulse Oximetry
SaO2: 98
Oxygen Mode of Delivery: Room air
Patient hypoxic: no
*Critical Care Note
Total Time (30-74mins, 75-104mins- exclusive of procedures): Not Applicable
ED Attending Note
-
Portions of this chart may have been created with voice recognition software.� Occasional wrong word or��sound alike� substitutions may have occurred due to the inherent limitations of voice recognition software.
Discharge Plan
Departure
Patient Disposition: Home (Routine Discharge)
Date of Disposition: 04/14/25
Time of Disposition: :25
Patient with high blood pressure during this ER visit?: Yes
Discharge Problem:
Fatigue, COVID-19
Instructions: Fatigue (DC), COVID-19 in adults (DC)
Prescriptions:
No Action
dorzolamide 1 DROP drops
1 drp BOTH EYES TID
dabigatran etexilate [Pradaxa] 150 mg Capsule
150 mg PO BID Qty: 180 5RF
dofetilide 125 mcg Capsule
125 mcg PO Q12 Qty: 180 5RF
diltiazem HCl 180 mg Capsule,Extended Release 24 Hr
180 mg PO DAILY
brimonidine 0.1 % Drops
1 drp LEFT EYE BID
bromfenac 0.09 % Drops
1 drp LEFT EYE BID
levalbuterol tartrate 45 mcg/actuation Hfa Aerosol Inhaler
1 puff INHALATION PRN PRN (Reason: sob)
loteprednol etabonate 0.5 % Drops,Suspension
1 drp LEFT EYE DAILY
Eye Drop Replaced Pilocarpine
1 drp BOTH EYES BID
Patient Comments:
pt does not know name of drops
hydrocortisone acetate [Anusol-HC] 25 mg suppository
25 mg [place] BID Qty: 24 0RF
Activity Restrictions/Additional Instructions:
Thank You for choosing [facility].
It was a pleasure meeting you and taking part in your care. We hope for your continued healing and wellness.
Please read discharge instructions in their entirety. However, they are for general education and may not describe your exact diagnosis at discharge. Information on your ER visit and medical conditions were discussed with you along with appropriate
follow up information...
If indicated, please take your medications as instructed and indicated on discharge paperwork.
Please schedule a follow up appointment as directed. Call to schedule an appointment
Please return to the emergency department with ANY change in, persisting, or worsening of symptoms. If any of your symptoms do not improve, or persist, or become more severe within 6-12 hours, please return to the emergency department for further
care.
Please return to the emergency department if you develop a headache, neck pain/stiffness, fever greater than 100.4F, chest pain, shortness of breath, persistent nausea, vomiting, slurred speech, difficulty walking, numbness/tingling, weakness, signs
of infection or any other symptoms that are worrisome to you.
If you have any questions or concerns please do not hesitate to call the Hospital at .
Interventions
Interventions:
*Risk Screen - Suicide Last Done: 04/14/25 03:03
*General Assessment Last Done: 04/14/25 03:21
*Neglect/Abuse Screening Last Done: 04/14/25 03:20
*ED COVID-19 Vaccine History Last Done: 04/14/25 03:20
*ED Influenza Vaccine History Last Done: 04/14/25 03:20
*Nursing Disposition Last Done: 04/14/25 03:33
Discharge Date and Time
Discharge Date/Time: 04/14/25 03:34
Print Language: FAROESE
--- NOTE | 2025-04-14 10:18 | EDCM ---
Received consult, reviewed chart. Pt has had multiple ED visits over past several months. Attempted to reach pt but had to leave voicemail. Requested a call back. Referral placed to [facility].
== END 2025-04-14 03:34 | disposition home or self-care (01) ==
LOC: EMR 02:58
PROVIDERS: EMERGENCY PHYSICIAN Student in an Organized Health Care Education/Training Program
DX: G47.10 Hypersomnia, unspecified (principal); Z86.16 Personal history of COVID-19; H40.9 Unspecified glaucoma; I48.91 Unspecified atrial fibrillation; J44.89 Other specified chronic obstructive pulmonary disease; K58.9 Irritable bowel syndrome, unspecified; N40.0 Benign prostatic hyperplasia without lower urinary tract symptoms; Z82.49 Family history of ischemic heart disease and other diseases of the circulatory system; Z85.118 Personal history of other malignant neoplasm of bronchus and lung; Z87.891 Personal history of nicotine dependence
CPT/HCPCS: 99282